=== PATIENT | female | born 1935 | race Caucasian/White ===

== ENCOUNTER → 2016-10-19 | Outpatient (CLI) | payer MEDICARE ==
[~2016-10-19] MED LIST: ALBU0.08 NEB; ALBU6.7H INH; ALEN1TAB48 PO; ASPI81TA81 PO; BUDE0.5S NEB; CALC600T10 PO; CEFT500T3 PO; CHOL5000 PO; CYAN1000P IM; ESTR1.25 PO; IPRA0.02 NEB; LACT PO; LOSA100T PO; NYST1000 SWISH-SWAL; NYST15T TOPICAL; PRED10PA PO; PULM180I INH; THEO200T4 PO; ZINC20OI TOPICAL
[2016-10-19 13:08] LABS: AUTOMATED NEUTROPHIL # 3.7 TH/MM3 (1.8-7.7); BASOPHIL % 0.5 % (0.0-2.0); EOSINOPHIL # 0.1 TH/MM3 (0-0.4); EOSINOPHIL % 2.4 % (0.0-4.0); HEMATOCRIT 37.3 % (35.0-46.0); HEMO FLAGS DIFF FINAL; LYMPH % 10.7 % (9.0-44.0); LYMPHOCYTE # 0.5 TH/MM3 (1.0-4.8); MEAN CELL VOLUME 97.1 FL (80.0-100.0); MEAN CORPUSCULAR HEMOGLOBIN 31.4 PG (27.0-34.0); MEAN CORPUSCULAR HGB CONC 32.3 % (32.0-36.0); MONO % 12.5 % (0.0-8.0); NEUT % 73.9 % (16.0-70.0); PLATELET COUNT 490 TH/MM3 (150-450); RED BLOOD COUNT 3.84 MIL/MM3 (4.00-5.30); RED CELL DISTRIBUTION WIDTH 16.9 % (11.6-17.2)
[2016-10-19 13:25] LABS: BLOOD, URINE NEG (NEG); GLUCOSE,URINE NEG (NEG); KETONE, URINE NEG (NEG); NITRITE,URINE NEG (NEG); SQUAMOUS EPITHELIAL CELL URINE 1 /hpf (0-5); URINE COLOR LIGHT-YELLOW (YELLW/STRAW)
[2016-10-19 13:40] LABS: ANION GAP 9 MEQ/L (5-15); AST (GOT) 19 U/L (15-37); BICARBONATE 26.2 MEQ/L (21.0-32.0); BLOOD UREA NITROGEN 18 MG/DL (7-18); CHLORIDE 109 MEQ/L (98-107); GLUCOSE,FASTING 70 MG/DL (74-99); POTASSIUM 3.7 MEQ/L (3.5-5.1); SODIUM (NA) 144 MEQ/L (136-145)
[2016-10-19 13:53] LABS: ALKALINE PHOSPHATASE 53 U/L (45-117); ALT (GPT) 15 U/L (10-53); GLOMERULAR FILTRATION RATE 45 ML/MIN (>89); LDL CHOLESTEROL 79 MG/DL (0-99); TOTAL BILIRUBIN ADULT 0.4 MG/DL (0.2-1.0)
== END ==
LOC: PLAB 08:53
DX: I10 Essential (primary) hypertension (principal); J45.909 Unspecified asthma, uncomplicated; E78.00 Pure hypercholesterolemia, unspecified
CPT/HCPCS: 36415; 80053; 80061; 81001; 84443; 85025

== ENCOUNTER → 2017-03-13 | Outpatient (CLI) | payer MEDICARE ==
[2017-03-13 14:56] LABS: BICARBONATE 24.9 MEQ/L (21.0-32.0); POTASSIUM 3.9 MEQ/L (3.5-5.1)
[2017-03-15 23:51] LABS: N-TELOPEPTIDE NTX 10 (4-64)
== END ==
LOC: PLAB 09:14
PROVIDERS: ATTEND Internal Medicine Endocrinology, Diabetes & Metabolism
DX: E55.9 Vitamin D deficiency, unspecified (principal); M81.0 Age-related osteoporosis without current pathological fracture; N18.3 Chronic kidney disease, stage 3 (moderate)
CPT/HCPCS: 36415; 80048; 82306; 82523

== ENCOUNTER 2017-04-11 07:46 | Inpatient (IN) | payer MEDICARE ==
[2017-04-11] VITALS (22 sets, daily range): BP systolic 82–175; BP diastolic 3–109; PULSE 85–155; RESP 19–36; TEMP 98.2–100; O2SAT 94–100
[~2017-04-11] VITALS: Ht 157.5 cm; Wt 42.6 kg
[2017-04-11] MEDS ORDERED: SODIUM CHLORIDE 0.9% FLUSH 10 ML FLUSH IVF PRN (08:15)
--- NOTE | 2017-04-11 08:15 | PD ---
HPI Chief Complaint: Respiratory Symptoms Time Seen by Provider: 08:01 Travel History International Travel<30 days: No Contact w/Intl Traveler<30days: No Traveled to known affect area: No History of Present Illness HPI The patient is a 81-year-old female who presents to the emergency department for 24 hours of shortness of breath. The patient does have a history of COPD and is followed by her iridologist, Dr. Mcmanus, as well as her primary physician, Dr. Stoner. The patient states she does have a history of COPD and was started on prednisone several days ago on April 09. The patient is currently taking prednisone 30 mg daily, did not take her dose today. She is also been taking a cephalosporin at home for her chronic bronchitis. The patient has been using nebulizers at home, however, her symptoms have progressed over the last 24 hours. She denies any chest pain. She denies any known history of pulmonary embolism. She denies recent prolonged travel, hospitalizations, or surgeries. The patient states she did have a workup for pulmonary embolism one year ago when she was admitted for COPD exacerbation that was negative. She does take Premarin on a daily basis. Symptoms are moderate, not alleviated with nebulizers and steroids at home. Possibly exacerbated by history of COPD. PFSH Past Medical History Hx Anticoagulant Therapy: Yes (ASA 81 MG) Arthritis: Yes Asthma: Yes Autoimmune Disease: No Blood Disorders: No Anxiety: No Depression: No Heart Rhythm Problems: No Cancer: No Cardiac Catheterization: Yes (01/22/07) Cardiovascular Problems: Yes High Cholesterol: Yes Chemotherapy: No Chest Pain: No Congestive Heart Failure: No COPD: Yes Cerebrovascular Accident: No Coronary Artery Disease: Yes Diabetes: No Diminished Hearing: No Endocrine: Yes Gastrointestinal Disorders: Yes (ACID REFLUX, HX OF STOMACH ULCER) GERD: Yes Glaucoma: No Genitourinary: Yes (PROLAPSE) Headaches: No Hepatitis: No Hiatal Hernia: No Hypertension: Yes Immune Disorder: No Implanted Vascular Access Dvce: Yes Kidney Stones: No Musculoskeletal: Yes Neurologic: No Psychiatric: No Reproductive: Yes (PELVIC FLOOR PROLAPSE ) Respiratory: Yes Migraines: No Myocardial Infarction: No Radiation Therapy: No Renal Failure: No Seizures: No Sickle Cell Disease: No Sleep Apnea: No Thyroid Disease: Yes Ulcer: Yes (STOMACH) ?: Not Menopausal: Yes : 3 Para: 3 Past Surgical History Abdominal Surgery: Yes AICD: No Appendectomy: No Arteriovenous Shunt: No Body Medical Devices: IMPLANTED STENTS X 2 RCA Cardiac Surgery: Yes (STENTS RCA DEC 2006 FROM OCCULUSION 75%) Cholecystectomy: Yes (1982) Coronary Stent: Yes ( - 01/22/07) Ear Surgery: No Endocrine Surgery: No Eye Surgery: Yes ( CATARACTS X 2 O9) Genitourinary Surgery: No Gynecologic Surgery: Yes Hysterectomy: Yes Insulin Pump: No Joint Replacement: No Oral Surgery: Yes (TONSILLECTOMY) Pacemaker: No Thoracic Surgery: No Tonsillectomy: Yes (1979) Other Surgery: Yes (BOWEL OBSTRUCTION-RESECTION) Social History Alcohol Use: No Tobacco Use: Yes (quit 2006) Substance Use: No Allergies-Medications (Allergen,Severity, Reaction): Coded Allergies: acebutolol (Unverified Allergy, Severe, "CAN'T THINK OR SPEAK", 04/11/17) atenolol (Unverified Allergy, Severe, "CAN'T THINK OR SPEAK", 04/11/17) betaxolol (Unverified Allergy, Severe, "CAN'T THINK OR SPEAK", 04/11/17) carvedilol (Unverified Allergy, Severe, "CAN'T THINK OR SPEAK", 04/11/17) clopidogrel (Unverified Allergy, Severe, UPPER GI BLEED, 04/11/17) codeine (Unverified Allergy, Severe, STOMACH UPSET, 04/11/17) ezetimibe (Unverified Allergy, Severe, Diarrhea, 04/11/17) hydrochlorothiazide (Unverified Allergy, Severe, Rash, 04/11/17) hydromorphone (Unverified Allergy, Severe, Nausea/Vomiting, 04/11/17) labetalol (Unverified Allergy, Severe, "CAN'T THINK OR SPEAK", 04/11/17) metoprolol (Unverified Allergy, Severe, "CAN'T THINK OR SPEAK", 04/11/17) morphine (Unverified Allergy, Severe, Rash, 04/11/17) nebivolol (Unverified Allergy, Severe, "CAN'T THINK OR SPEAK", 04/11/17) pindolol (Unverified Allergy, Severe, "CAN'T THINK OR SPEAK", 04/11/17) propranolol (Unverified Allergy, Severe, "CAN'T THINK OR SPEAK", 04/11/17) sotalol (Unverified Allergy, Severe, "CAN'T THINK OR SPEAK", 04/11/17) ticlopidine (Unverified Allergy, Severe, UPPER GI BLEED, 04/11/17) timolol (Unverified Allergy, Severe, "CAN'T THINK OR SPEAK", 04/11/17) amlodipine (Unverified Allergy, Mild, Nausea/Vomiting, 04/11/17) atorvastatin (Unverified Allergy, Mild, Nausea/Vomiting, 04/11/17) pramipexole (Unverified Allergy, Mild, 04/11/17) pravastatin (Unverified Allergy, Mild, Nausea/Vomiting, 04/11/17) simvastatin (Unverified Allergy, Mild, Nausea/Vomiting, 04/11/17) Reported Meds & Prescriptions Reported Meds & Active Scripts Active Nystatin Topical (Nystatin) 100,000 unit/gm Cream 1 Applic TOPICAL Q12HR 14 Days Acidophilus/l-Sporogenes (Lactobacillus Acidophilus) 1 Tab Tab 1 Tab PO Q12HR Nystatin Liq 100,000 unit/ml Susp 5 Ml SWISH-SWAL Q6H 7 Days Zinc Oxide (Zinc Oxide (Topical)) 20 % Oin 1 Applic TOPICAL UNSCH PRN 14 Days Reported Prednisone (21) 5 mg tab Dose Pack (Prednisone) 5 Mg Dspk 5 Mg PO DIRECTED Ceftin (Cefuroxime Axetil) 250 Mg Tab 250 Mg PO BID Theophylline ER 12 HR (Theophylline) 200 Mg Tab 200 Mg PO Q12H Alendronate (Alendronate Sodium) 70 Mg Tab 70 Mg PO Q7D Proventil Hfa 6.7 GM Inh (Albuterol Sulfate) 90 Mcg/Act Aer 2 Puff INH Q4HR PRN Pulmicort Flexhaler (Budesonide Powder Inh) 180 Mcg/Act Inhp 180 Mcg INH Q12HR PRN Albuterol Neb (Albuterol Sulfate) 2.5 Mg/3 Ml Neb 2.5 Mg NEB QID Ipratropium Neb (Ipratropium [place]) 0.5 Mg/2.5 Ml Amp 0.5 Mg NEB BID Budesonide Neb 0.5 Mg/2 Ml Neb 0.5 Mg NEB BID Cyanocobalamin Inj (Cyanocobalamin) 1,000 Mcg/Ml Inj 1,000 Mcg IM MONTHLY Calcium + D3 (Calcium Carbonate-Cholecalciferol) 600-200 Mg-Unit Tab 3 Tab PO DAILY Vitamin D3 (Cholecalciferol) 5,000 Unit Cap 5,000 Units PO 4TIMESPERWEEK Premarin (Estrogens Conjugated) 1.25 Mg Tab 1.25 Mg PO DAILY Losartan (Losartan Potassium) 100 Mg Tab 100 Mg PO DAILY Aspir-81 (Aspirin) 81 Mg Tabdr 81 Mg PO DAILY Review of Systems Except as stated in HPI: all other systems reviewed are Neg General / Constitutional: No: Fever Cardiovascular: Positive: Dyspnea on exertion, No: Chest Pain or Discomfort Respiratory: Positive: Cough, Shortness of Breath, Wheezing Gastrointestinal: No: Nausea, Vomiting Musculoskeletal: No: Weakness, Edema Neurologic: No: Dizziness Physical Exam Narrative GENERAL: Awake, alert, pleasant 81 year-old female appears her stated age and appears in moderate respiratory distress. SKIN: Focused skin assessment warm/dry. HEAD: Atraumatic. Normocephalic. EYES: Pupils equal and round. No scleral icterus. No injection or drainage. ENT: No nasal bleeding or discharge. Mucous membranes pink and moist. NECK: Trachea midline. No JVD. CARDIOVASCULAR: Regular, tachycardic with a heart rate of 140. RESPIRATORY: Tachypnea with a respiratory rate of 24. Patient is using accessory muscles with supraclavicular muscle contraction. Diminished breath sounds throughout with prolonged expiratory phase and a few scattered wheezes. GASTROINTESTINAL: Abdomen soft, non-tender, nondistended. MUSCULOSKELETAL: No obvious deformities. No clubbing. No cyanosis. No edema. Calves are soft bilaterally. NEUROLOGICAL: Awake and alert. No obvious cranial nerve deficits. Motor grossly within normal limits. Normal speech. PSYCHIATRIC: Appropriate mood and affect; insight and judgment normal. Data Data Last Documented VS Vital Signs Date Time Temp Pulse Resp B/P (MAP) Pulse Ox O2 Delivery O2 Flow Rate FiO2 04/11/17 09:40 135 26 169/109 (129) 98 Aerosol Mask 04/11/17 09:22 2.00 04/11/17 08:05 98.4 Orders Orders Complete Blood Count With Diff (04/11/17 08:10) Comprehensive Metabolic Panel (04/11/17 08:10) B-Type Natriuretic Peptide (04/11/17 08:10) D-Dimer (04/11/17 08:10) Magnesium (Mg) (04/11/17 08:10) Ckmb (Isoenzyme) Profile (04/11/17 08:10) Troponin I (04/11/17 08:10) Iv Access Insert/Monitor (04/11/17 08:10) Electrocardiogram (04/11/17 08:10) Ecg Monitoring (04/11/17 08:10) Oximetry (04/11/17 08:10) Oxygen Administration (04/11/17 08:10) Chest, Single Ap (04/11/17 08:10) Sodium Chloride 0.9% Flush (Ns Flush) (04/11/17 08:15) Albuterol-Ipratropium Neb (Duoneb Neb) (04/11/17 08:15) CKMB (04/11/17 08:20) CKMB% (04/11/17 08:20) Potassium Chloride (Kcl) (04/11/17 09:45) Aspirin Chew (Aspirin Chew) (04/11/17 09:45) Nitroglycerin 2% Oint (Nitroglycerin 2% (04/11/17 10:00) Admit Order (Ed Use Only) (04/11/17 10:03) Labs Laboratory Tests Test 04/11/17 08:20 White Blood Count 11.4 TH/MM3 Red Blood Count 4.26 MIL/MM3 Hemoglobin 13.9 GM/DL Hematocrit 41.3 % Mean Corpuscular Volume 97.0 FL Mean Corpuscular Hemoglobin 32.6 PG Mean Corpuscular Hemoglobin Concent 33.6 % Red Cell Distribution Width 14.0 % Platelet Count 347 TH/MM3 Mean Platelet Volume 8.3 FL Neutrophils (%) (Auto) 91.0 % Lymphocytes (%) (Auto) 2.9 % Monocytes (%) (Auto) 6.0 % Eosinophils (%) (Auto) 0.0 % Basophils (%) (Auto) 0.1 % Neutrophils # (Auto) 10.4 TH/MM3 Lymphocytes # (Auto) 0.3 TH/MM3 Monocytes # (Auto) 0.7 TH/MM3 Eosinophils # (Auto) 0.0 TH/MM3 Basophils # (Auto) 0.0 TH/MM3 CBC Comment DIFF FINAL Differential Comment D-Dimer Quantitative (PE/DVT) 0.41 MG/L FEU Blood Urea Nitrogen 18 MG/DL Creatinine 1.01 MG/DL Random Glucose 128 MG/DL Total Protein 5.6 GM/DL Albumin 2.4 GM/DL Calcium Level 6.3 MG/DL Magnesium Level 1.3 MG/DL Alkaline Phosphatase 45 U/L Aspartate Amino Transf (AST/SGOT) 48 U/L Alanine Aminotransferase (ALT/SGPT) 19 U/L Total Bilirubin 0.2 MG/DL Sodium Level 143 MEQ/L Potassium Level 3.0 MEQ/L Chloride Level 114 MEQ/L Carbon Dioxide Level 19.5 MEQ/L Anion Gap 10 MEQ/L Estimat Glomerular Filtration Rate 53 ML/MIN Protein Corrected Calcium 7.0 MG/DL Total Creatine Kinase 316 U/L Creatine Kinase MB 5.5 NG/ML Creatine Kinase MB % 1.7 % Troponin I 0.09 NG/ML B-Type Natriuretic Peptide 89 PG/ML [facility] Medical Decision Making Medical Screen Exam Complete: Yes Emergency Medical Condition: Yes Medical Record Reviewed: Yes Interpretation(s) EKG reveals sinus tachycardia. S1Q3T3, incomplete right bundle branch block. Nonspecific ST changes. QTC 410 ms. Last Impressions Chest X-Ray 04/11/17 0810 Signed Impressions: Service Date/Time: Tuesday, April 11, 2017 08:27 - CONCLUSION: 1. Changes of obstructive pulmonary disease. 2. Platelike airspace disease in the medial right lower lobe likely reflects atelectasis although developing pneumonia or aspiration cannot be excluded in the appropriate clinical setting. Hernan Gillespie MD Laboratory Tests Test 04/11/17 08:20 White Blood Count 11.4 TH/MM3 Red Blood Count 4.26 MIL/MM3 Hemoglobin 13.9 GM/DL Hematocrit 41.3 % Mean Corpuscular Volume 97.0 FL Mean Corpuscular Hemoglobin 32.6 PG Mean Corpuscular Hemoglobin Concent 33.6 % Red Cell Distribution Width 14.0 % Platelet Count 347 TH/MM3 Mean Platelet Volume 8.3 FL Neutrophils (%) (Auto) 91.0 % Lymphocytes (%) (Auto) 2.9 % Monocytes (%) (Auto) 6.0 % Eosinophils (%) (Auto) 0.0 % Basophils (%) (Auto) 0.1 % Neutrophils # (Auto) 10.4 TH/MM3 Lymphocytes # (Auto) 0.3 TH/MM3 Monocytes # (Auto) 0.7 TH/MM3 Eosinophils # (Auto) 0.0 TH/MM3 Basophils # (Auto) 0.0 TH/MM3 CBC Comment DIFF FINAL Differential Comment D-Dimer Quantitative (PE/DVT) 0.41 MG/L FEU Blood Urea Nitrogen 18 MG/DL Creatinine 1.01 MG/DL Random Glucose 128 MG/DL Total Protein 5.6 GM/DL Albumin 2.4 GM/DL Calcium Level 6.3 MG/DL Magnesium Level 1.3 MG/DL Alkaline Phosphatase 45 U/L Aspartate Amino Transf (AST/SGOT) 48 U/L Alanine Aminotransferase (ALT/SGPT) 19 U/L Total Bilirubin 0.2 MG/DL Sodium Level 143 MEQ/L Potassium Level 3.0 MEQ/L Chloride Level 114 MEQ/L Carbon Dioxide Level 19.5 MEQ/L Anion Gap 10 MEQ/L Estimat Glomerular Filtration Rate 53 ML/MIN Protein Corrected Calcium 7.0 MG/DL Total Creatine Kinase 316 U/L Creatine Kinase MB 5.5 NG/ML Creatine Kinase MB % 1.7 % Troponin I 0.09 NG/ML B-Type Natriuretic Peptide 89 PG/ML Differential Diagnosis Differential diagnosis includes COPD exacerbation, bronchitis, pneumonia, pulmonary embolism, congestive heart failure, pleural effusion, cardiomyopathy, ACS. Narrative Course IV was established, labs are drawn and sent, and the patient was placed on cardiac telemetry monitoring and continuous pulse oximetry monitoring. EKG was ordered and interpreted. Chest x-ray was obtained. The patient was administered Solu-Medrol 125 g intravenously and duo nebs 2. D-dimer was sent to lab. The patient's d-dimer 0.41, therefore, no CT pulmonary angiogram indicated. The patient did receive nebulizers, however, her heart rate came into the 140s and her symptoms progressed, therefore, the nebulizers were discontinued. The patient does not want BiPAP, has not tolerated in the past. The patient's CK-MB was elevated at 5.5 and the patient's troponin was elevated at 0.9. Therefore, the patient was administered aspirin and Nitropaste. A call was placed to [facility] to cover for Dr. Stoner, for admission. Physician Communication Physician Communication [facility] were paged for admission. I discussed the patient with Dr. Childers who agrees with admission. Diagnosis Primary Impression: Dyspnea Qualified Codes: R06.02 - Shortness of breath Additional Impression: Elevated troponin Admitting Information Admitting Physician Requests: Admit Condition: Stable Anish Upton MD Apr 11, 2017 08:15
[2017-04-11] MEDS ORDERED: CEFU1TAB18 PO (08:27)
[2017-04-11] MEDS ORDERED: THEO200T11 PO (08:27)
[2017-04-11] MEDS ORDERED: PRED5PAK PO (08:27)
[2017-04-11 08:42] LABS: AUTOMATED NEUTROPHIL # 10.4 TH/MM3 (1.8-7.7); BASOPHIL % 0.1 % (0.0-2.0); HEMATOCRIT 41.3 % (35.0-46.0); HEMO FLAGS DIFF FINAL; LYMPH % 2.9 % (9.0-44.0); LYMPHOCYTE # 0.3 TH/MM3 (1.0-4.8); MEAN CORPUSCULAR HEMOGLOBIN 32.6 PG (27.0-34.0); MEAN CORPUSCULAR HGB CONC 33.6 % (32.0-36.0); PLATELET COUNT 347 TH/MM3 (150-450); RED BLOOD COUNT 4.26 MIL/MM3 (4.00-5.30); WHITE BLOOD COUNT 11.4 TH/MM3 (4.0-11.0)
--- NOTE | 2017-04-11 08:43 | RADRPT ---
EXAM DATE/TIME: 04/11/2017 08:27 [facility] COMPARISON: CT PULMONARY ANGIOGRAM, March 17, 2016, 16:23. CHEST SINGLE AP, March 16, 2016, 3:42. INDICATIONS : Short of breath. MEDICAL HISTORY : Hypertension. Chronic obstructive pulmonary disease. Cardiovascular disease. Asthma SURGICAL HISTORY : Cardiac catheterization. heart stents. ENCOUNTER: Initial ACUITY: 1 day PAIN SCORE: 0/10 LOCATION: Bilateral chest FINDINGS: Lungs are hyperaerated with diffuse interstitial prominence. Platelike airspace disease in the medial right lower lobe. Cardiomediastinal contours are stable. Remainder of the exam is unchanged. CONCLUSION: 1. Changes of obstructive pulmonary disease. 2. Platelike airspace disease in the medial right lower lobe likely reflects atelectasis although dev eloping pneumonia or aspiration cannot be excluded in the appropriate clinical setting. Hernan Gillespie MD on April 11, 2017 at 8:35 Board Certified Radiologist. This report was verified electronically.
[2017-04-11 09:19] LABS: BICARBONATE 19.5 MEQ/L (21.0-32.0); MAGNESIUM 1.3 MG/DL (1.5-2.5); TOTAL BILIRUBIN ADULT 0.2 MG/DL (0.2-1.0)
[2017-04-11] MEDS: RESP: ALBUTEROL 2.5 MG/IPRATROPIUM 0.5 MG NEB (SCH) INH ×2 (09:22→09:23)
[2017-04-11 09:42] LABS: CKMB 5.5 NG/ML (0.5-3.6)
[2017-04-11] MEDS ORDERED: POTASSIUM CHLORIDE 20 MEQ CONTROLLED RELEASE TAB PO ONE (09:45)
[2017-04-11] MEDS ORDERED: ASPIRIN 81 MG CHEW TAB CHEW ONE (09:45)
[2017-04-11] MEDS ORDERED: NITROGLYCERIN 2% OINT 1 GM PACKET TOPICAL ONE (10:00)
[2017-04-11] MEDS ORDERED: NALOXONE HCL 0.4 MG/ML AMP IV PUSH PRN (10:15)
[2017-04-11] MEDS ORDERED: CALCIUM GLUCONATE 10% 1 GM/10 ML VIAL IV PUSH ONE (10:15)
[2017-04-11] MEDS ORDERED: LORazepam 2 MG/ML VIAL IV PUSH ONE (11:30)
[2017-04-11] MEDS ORDERED: SUCCINYLCHOLINE CHLORIDE 200 MG/10 ML VIAL ONE (11:41)
[2017-04-11] MEDS ORDERED: ETOMIDATE 20 MG/10 ML VIAL ONE (11:42)
[2017-04-11] MEDS ORDERED: ETOMIDATE 20 MG/10 ML VIAL IV PUSH ONE (11:45)
[2017-04-11] MEDS ORDERED: SUCCINYLCHOLINE CHLORIDE 100 MG/5 ML SYRINGE IV PUSH ONE (11:45)
[2017-04-11] MEDS: PROPOFOL 1000 MG/100 ML INJ 100 ML IV PRN ×2 (12:14→22:18)
[2017-04-11] MEDS ORDERED: CHLORHEXIDINE GLUCONATE 2 % 1 PACK (2 CLOTHS) TOP PRN (12:15)
[2017-04-11] MEDS ORDERED: SENNOSIDES 8.6 MG TAB PO PRN (12:15)
[2017-04-11] MEDS ORDERED: MAGNESIUM SULFATE INJ 2 GM in SODIUM CHLORIDE 0.9% INJ 96 ML IV PRN (12:15)
[2017-04-11] MEDS ORDERED: POTASSIUM PHOSPHATE MONOBASIC 500 MG TAB PO/TUBE PRN (12:15)
[2017-04-11] MEDS ORDERED: MAGNESIUM OXIDE 400 MG TAB PO PRN (12:15)
[2017-04-11] MEDS ORDERED: BISACODYL 10 MG SUPP RECTAL PRN (12:15)
[2017-04-11] MEDS ORDERED: POTASSIUM PHOSPHATE INJ 30 MMOL in SODIUM CHLOR 0.9% 250 ML INJ 250 ML IV PRN (12:15)
[2017-04-11] MEDS ORDERED: POTASSIUM CHLOR 40 MEQ PREMIX 100 ML IV PRN ×2 (12:15)
[2017-04-11] MEDS ORDERED: POTASSIUM CHLORIDE 25 MEQ EFFERVESCENT TAB PO PRN (12:15)
[2017-04-11] MEDS ORDERED: MAGNESIUM SULFATE INJ 4 GM in SODIUM CHLORIDE 0.9% INJ 92 ML IV PRN (12:15)
[2017-04-11] MEDS ORDERED: LACTULOSE SYRUP 20 GM/30 ML CUP PO PRN (12:15)
[2017-04-11] MEDS ORDERED: POTASSIUM CHLOR 20 MEQ PREMIX 100 ML IV PRN ×2 (12:15)
[2017-04-11] MEDS ORDERED: RESP: ALBUTEROL 2.5 MG/IPRATROPIUM 0.5 MG NEB (PRN) INH (12:15)
[2017-04-11] MEDS ORDERED: POTASSIUM PHOSPHATE MONOBASIC 500 MG TAB PO PRN (12:15)
[2017-04-11] MEDS ORDERED: MISCELLANEOUS NURSING INFORMATION XX SCH (12:15)
[2017-04-11] MEDS ORDERED: MAGNESIUM HYDROXIDE SUSP 30 ML CUP PO PRN (12:15)
[2017-04-11] MEDS ORDERED: SODIUM PHOSPHATE INJ 30 MMOL in SODIUM CHLOR 0.9% 250 ML INJ 240 ML IV PRN (12:15)
[2017-04-11] MEDS ORDERED: CALCIUM GLUCONATE INJ 1 GM in SODIUM CHLORIDE 0.9% INJ 100 ML IV ONE (12:30)
[2017-04-11] MEDS ORDERED: methylPREDNISolone SOD SUCC 125 MG/2 ML VIAL IV PUSH ONE (12:30)
--- NOTE | 2017-04-11 12:36 | RADRPT ---
EXAM DATE/TIME: 04/11/2017 12:05 [facility] COMPARISON: CHEST SINGLE AP, April 11, 2017, 8:27. INDICATIONS : Evaluate ET tube placement. MEDICAL HISTORY : Hypertension. Chronic obstructive pulmonary disease. Cardiovascular disease. Asthma. SURGICAL HISTORY : Cardiac catheterization. heart stents. ENCOUNTER: Initial ACUITY: 1 day PAIN SCORE: Non-responsive. LOCATION: Bilateral chest FINDINGS: The endotracheal tube is in good position 3 cm above the jesus. A nasogastric has its tip below the diaphragm. The heart is stable. Minimal right basilar atelectasis is stable. CONCLUSION: 1. Endotracheal tube in good position 3 cm above the jesus. 2. Stable right basilar atelectasis. Jason Chambers MD on April 11, 2017 at 12:30 Board Certified Radiologist. This report was verified electronically.
[2017-04-11] MEDS ORDERED: HEPARIN SODIUM - SQ 10,000 UNITS/ML VIAL SQ SCH (13:00)
[2017-04-11] MEDS ORDERED: CALCIUM GLUCONATE INJ 2 GM in SODIUM CHLORIDE 0.9% INJ 100 ML IV ONE (13:00)
[2017-04-11] MEDS ORDERED: POTASSIUM CHLOR 20 MEQ PREMIX 100 ML IV SCH (13:00)
[2017-04-11] MEDS: MAGNESIUM SULFATE 1 GM PREMIX 100 ML IV SCH ×2 (13:21→17:20)
[2017-04-11] MEDS ORDERED: GLUCAGON 1 MG/ML VIAL OTHER PRN (13:30)
[2017-04-11] MEDS ORDERED: DEXTROSE 50% IN WATER 50 ML VIAL(D50) IV PUSH PRN (13:30)
--- NOTE | 2017-04-11 13:36 | MB ---
cc: PAVITHRA OJEDA MD DATE OF CONSULTATION 04/11/2017 HISTORY This is a 81 year-old woman who has a long history of COPD who presents to the emergency department after having shortness of breath for 24-hours. 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 These were started, as well as prednisone at 30 mg daily, but she has had progressive shortness of breath. The patient came to the emergency room and was in rather significant and extreme dyspnea and has been intubated. Most of the history comes from her daughter. No chest pain at present. She does have a history of pulmonary emboli a year ago. Since her admission to the hospital, a BMP was done with a value of 89. Initial troponin was 0.09 and D-dimer was 0.41. Electrocardiogram reveals a right bundle-branch block and sinus tachycardia. No cough or sputum production apparently has been present. She has had no palpitations and apparently nebulizers and steroids have not been effective. ALLERGIES She has multiple allergies as noted in the chart. PHYSICAL EXAM She is intubated. Blood pressure is 160/100, pulse is 135. NECK: There is no neck vein distention. LUNGS: Her lungs revealed diminished breath sounds throughout all lung mills. No wheezes or rhonchi are present. CARDIOVASCULAR: Exam reveals a regular rate and rhythm with no significant murmur or gallop present. EXTREMITIES: Reveal no edema. ASSESSMENT The patient likely has COPD with acute exacerbation. PLAN We will await follow up troponin which is likely demand mediated. MD TONJA Sanchez/AYESHA /1:00 PM /1:04 PM
--- NOTE | 2017-04-11 13:53 | MB ---
cc: FLORENTINO GUERRA M.D. DATE OF CONSULTATION 04/11/2017 DATE OF 1935 HISTORY OF PRESENT ILLNESS The patient is a 81-year-old female with a past medical history of COPD, coronary artery disease, hypertension, gastroesophageal reflux disease, peptic ulcer disease who presented to [facility] ED with a one-day history of worsening shortness of breath. 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 Alarcon. There is no history of any associated symptoms of chest pain, orthopnea, PND or edema of lower extremities. On arrival to the ED the patient was hypertensive and tachycardiac with heart rate of one 130s to 150s. Her initial chest x-ray on arrival showed COPD changes, atelectasis in the right lower lobe. The patient was initially tried on BiPap without any improvements in her respiratory status. She was initially admitted to the hospitalist service. However, in the ED the patient was intubated and placed on mechanical ventilation for respiratory failure. Chest x-ray post-intubation showed ET tube above the jesus, right basilar atelectasis. She was given Solu-Medrol 125 mg IV push in the ED along with aspirin, bronchodilator and potassium supplement. There is no history of any prior intubation for her COPD. In addition, no history of any cough or constitutional symptoms. No other. PAST MEDICAL HISTORY 1. COPD. 2. Coronary artery disease. 3. Hypertension. 4. Gastroesophageal reflux disease. 5. Peptic ulcer disease. PAST SURGICAL HISTORY 1. Previous PTCA x2 in the right coronary artery. 2. Previous cholecystectomy. 3. Tonsillectomy. 4. Cataract extraction x2. 5. Previous bowel resection. FAMILY HISTORY Parents with emphysema. SOCIAL HISTORY She has a remote history of tobacco use. Occasional drinker. FAMILY HISTORY Not contributory to current present illness. ALLERGIES Multiple which include - ATENOLOL. HYDROCHLOROTHIAZIDE. LABETALOL. SOTALOL. PRAVASTATIN. SIMVASTATIN. ATORVASTATIN. REPORTED MEDICATIONS 1. Aspirin. 2. Losartan. 3. Ceftin. 4. Alendronate. 5. Tapered dose prednisone. 6. Albuterol nebs. REVIEW OF SYSTEMS As per HPI. The rest of the review of systems limited as the patient is intubated. PHYSICAL EXAMINATION GENERAL: A 81-year-old female intubated for respiratory failure. VITAL SIGNS: Temperature 98.4, pulse of 142, blood pressure 159/96, saturation 94%. HEENT: Atraumatic, normocephalic. Pupils equal and round, reactive to accommodation. Extraocular muscles intact. Conjunctivae pink. Nonicteric sclerae. Oral mucosa within normal. NECK: Supple. No JVD, adenopathy, thyromegaly. Trachea in the midline. Orally intubated. CARDIOVASCULAR EXAMINATION: Tachycardiac. Normal S1-S2. No murmurs, rubs or gallops noted. PULMONARY EXAM: Bilateral equal air entry. Overall diminished. ABDOMEN: Soft, nontender, no distension. Positive bowel sounds. EXTREMITIES: No cyanosis, clubbing or edema. NEURO: Intubated and sedated. LABORATORY DATA Sodium 143, potassium 3, chloride 114, CO2 19.5, BUN 18 creatinine 1.0, glucose 128 corrected calcium 7, magnesium 1.3, AST 48, ALT 19, total bilirubin 0.2. Troponin 0.09, total CK 316, CK-MB 5.5, albumin 2.4. WBC 11.4, hemoglobin 13.9, hematocrit 41, platelet count of 347. RADIOGRAPHIC STUDIES Chest x-ray post-intubation showed ET tube above the jseus, right basilar atelectasis. IMPRESSION 1. Acute respiratory failure requiring intubation. 2. COPD exacerbation. 3. Hypertension. 4. Mild acute kidney injury. 5. Electrolyte imbalance which includes hypokalemia and hypomagnesemia. 6. History of coronary artery disease with previous stent placements. 7. History of gastroesophageal reflux disease. 8. Peptic ulcer disease. RECOMMENDATIONS 1. Continue with Diprivan infusion for sedation. We will add Fentanyl drip if needed for sedation and vent synchrony. 2. Continue vent support and maintain sats above 92%. 3. Bronchodilators in the form of DuoNeb q. 4 plus q. 2 p.r.n. 4. Continue with Solu-Medrol 40 mg IV q. 6. 5. Check ABG post-intubation. 6. Monitor renal function I's and O's and electrolyte replacement per protocol. We will need potassium, calcium and magnesium replacements. Place on IV fluids, NS at 75 ml/hour. 7. Monitor heart rate and blood pressure closely and maintain MAP greater than 65 mmHg. 8. We will continue with aspirin [address] on Cardizem 30 mg q. 6 for rate control. She had an echocardiogram in March 2016 which showed an EF of 60-65%. 10. Keep n.p.o. for now. 11. Place on Pepcid at 20 mg IV q. 12 for GI prophylaxis. 12. Start tube feeds tomorrow if remains intubated. 13. Place on empiric antibiotics in the form of Zosyn for COPD exacerbation and monitor for signs of infections which include fever and WBC. 14. Check sputum culture with gram's stain. 15. Monitor CBC. 16. Place on sliding scale insulin with Accu-Cheks for glycemic control as the patient will be on IV steroids. 17. GI prophylaxis with Pepcid 20 mg q. 12. 18. DVT prophylaxis with SCDs and heparin subcu. Further recommendations will be based on the hospital course. Thank you. MD TEN Marquez/LOLIS /1:08 PM /1:25 PM
[2017-04-11] MEDS: FAMOTIDINE 20 MG/2 ML VIAL IV PUSH SCH ×2 (14:23→21:18)
[2017-04-11] MEDS: PIPERACIL-TAZO 3.375 GM PREMIX 50 ML IV SCH ×2 (14:23→21:17)
[2017-04-11] MEDS: SODIUM CHLOR 0.9% 1000 ML INJ 1,000 ML IV SCH (14:30)
[2017-04-11] MEDS ORDERED: RESP: IPRATROPIUM 0.5 MG/2.5 ML NEB NEB PRN (14:30)
[2017-04-11] MEDS: INSULIN NovoLIN REGULAR SUPPLEMENTAL SCALE SQ SCH ×3 (15:03→22:00)
[2017-04-11] MEDS: RESP: IPRATROPIUM 0.5 MG/2.5 ML NEB NEB SCH ×2 (15:26→21:00)
[2017-04-11] MEDS ORDERED: RESP: ALBUTEROL 2.5 MG/IPRATROPIUM 0.5 MG NEB (SCH) INH (16:00)
[2017-04-11 17:02] LABS: CKMB 12.7 NG/ML (0.5-3.6)
[2017-04-11] MEDS: methylPREDNISolone SOD SUCC 40 MG/1 ML VIAL IV PUSH SCH (17:19)
[2017-04-11] MEDS: DILTIAZEM HCL 30 MG TAB PO SCH ×2 (17:33→20:00)
[2017-04-11] MEDS: AZITHROMYCIN INJ 500 MG in SODIUM CHLOR 0.9% 250 ML INJ 250 ML IV SCH (17:45)
[2017-04-11] MEDS ORDERED: HEPARIN 25,000 UNITS-D5W 250 ML - PREMIX IV PRN (18:15)
[2017-04-11] MEDS ORDERED: HEPARIN SODIUM - IV 10,000 UNITS/10 ML VIAL IV PUSH PRN ×2 (18:15)
--- NOTE | 2017-04-11 18:19 | MB ---
cc: ROCIO WILLS DATE OF CONSULTATION 04/11/2017 REASON FOR CONSULTATION Respiratory failure and COPD. HISTORY OF PRESENT ILLNESS This is a 81-year-old white female who has had a longstanding history of COPD and emphysema and has been on home oxygen and under the care of Dr. Alarcon. The patient recently had an exacerbation of bronchitis, started taking an oral antibiotic last week including prednisone with a tapered dose, but started to have severe shortness of breath earlier today and called her daughter who is a nurse to bring her to the hospital. The patient was then transported to the emergency room. Initially, she was on a nasal cannula but was in quite severe distress and was tried on BiPap briefly with no success and, thus, she had to be intubated, placed on ventilator support. She is presently sedated on propofol and on FIO2 of 50% and her heart rate is noted to be over 140. The patient is somewhat restless, but her chest x-ray only showed evidence of mild atelectasis and hyperinflation. PAST MEDICAL HISTORY 1. History of COPD with emphysema 2. History of gastroesophageal reflux 3. History of hypertension, 4. History of peptic ulcer disease 5. Coronary artery disease PAST SURGICAL HISTORY 1. Tonsillectomy 2. Cholecystectomy 3. History of bilateral cataract extraction 4. Bowel resection. 5. She has had PTCA and stenting of the right coronary artery. HABITS The patient smoked one-pack per day for over 30 years and then quit. Drinks occasional alcohol. FAMILY HISTORY Significant for COPD in her parents. ALLERGIES LABETALOL ATENOLOL PRAVASTATIN HYDROCHLOROTHIAZIDE MEDICATIONS 1. Nebulized albuterol 2. Prednisone 20 mg a day 3. Recently on Ceftin and then Losartan 100 mg a day 4. One aspirin daily. REVIEW OF SYSTEMS The patient is intubated on ventilator support. PHYSICAL EXAMINATION GENERAL: This is an averagely built elderly lady who is intubated and sedated. She is somewhat restless. VITAL SIGNS: Blood pressure 148/90, pulse is 130, respirations 24, temperature 97.6. HEENT: The head normocephalic. Pupils are reactive. Sclerae were clear. Nasal mucosa edematous. Ears no inflammation. NECK: Supple. No lymphadenopathy. There is mild venous distension while laying flat. Trachea midline. No thyromegaly. CHEST: Equal movements with an increased AP diameter with bilateral expiratory wheezes. Prolonged expirations, few crackles at the right base. HEART: Sounds are regular S1, S2 and tachycardic with no murmur. ABDOMEN: Soft, nontender. No organomegaly. Bowel sounds are active. EXTREMITIES: No lesions or edema. Peripheral pulses are diminished. NEUROLOGIC: Reflexes are 1+. Babinski negative. The patient is sedated. SKIN: No lesions were observed. IMPRESSION 1. Hypercapnic respiratory failure. 2. 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 History of hypertension 4. History of coronary artery disease with stenting 5. History of peptic ulcer disease. PLAN The patient has been started on ventilator support. We will keep her sedated with Diprivan and fentanyl drips. She was placed on DuoNeb nebs q.4 h, also Solu-Medrol 40 mg IV q.6 h. Her heart rate will be monitored and controlled and Cardizem was started 30 mg q. six. We will get a culture from the tracheal aspirate. Antibiotics including Zosyn 3.375 grams IV q.6 h and Zithromax 500 mg IV daily. A repeat chest x-ray, blood gas study to be done in the a.m. as well as [facility]. The patient will be placed in the ICU and I will follow the case with you, Dr. Person. Thank you for this consultation. MD RICHELLE Norton/ /5:33 PM /6:06 PM
[2017-04-11] MEDS ORDERED: HEPARIN SODIUM - IV 10,000 UNITS/10 ML VIAL IV ONE (18:30)
--- NOTE | 2017-04-11 18:41 | EKG ---
Date Performed: 04/11/2017 Time Performed: 15:25:13 PTAGE: 81 years EKG: SINUS TACHYCARDIA LEFT ATRIAL ENLARGEMENT LOW QRS VOLTAGE IN EXTREMITY LEADS POSSIBLE RIGHT VENTRICULAR CONDUCTION DELAY POSSIBLE INFERIOR MYOCARDIAL INFARCTION Since previous tracing, no sign ificant change noted ABNORMAL ECG PREVIOUS TRACING : 04/11/2017 08.47 DOCTOR: Hunter Hawkins Interpretating Date/Time 04/11/2017 18:41:14
--- NOTE | 2017-04-11 18:46 | EKG ---
Date Performed: 04/11/2017 Time Performed: 08:47:49 PTAGE: 81 years EKG: SINUS TACHYCARDIA WITH SHORT MD INTERVAL INCOMPLETE RIGHT BUNDLE BRANCH BLOCK NONSPECIFIC S T & T-WAVE ABNORMALITY Since previous tracing, no significant change noted ABNORMAL RHYTHM ECG PREVIOUS TRACING : 03/12/2016 21.50 DOCTOR: Jonas Fitzpatrick Interpretating Date/Time 04/11/2017 18:44:58
[2017-04-11 20:56] LABS: HEMATOCRIT 40.4 % (35.0-46.0); MEAN CELL VOLUME 97.8 FL (80.0-100.0); MEAN CORPUSCULAR HEMOGLOBIN 32.2 PG (27.0-34.0); MEAN CORPUSCULAR HGB CONC 32.9 % (32.0-36.0); PLATELET COUNT 329 TH/MM3 (150-450); RED BLOOD COUNT 4.13 MIL/MM3 (4.00-5.30); RED CELL DISTRIBUTION WIDTH 14.4 % (11.6-17.2); REVIEW FLAG FINAL; WHITE BLOOD COUNT 10.7 TH/MM3 (4.0-11.0)
[2017-04-11] MEDS: BUDESONIDE-FORMOTEROL 160/4.5 MCG INHALER INH SCH (21:00)
[2017-04-11] MEDS ORDERED: FAMOTIDINE 20 MG TAB PO SCH (21:00)
[2017-04-11 21:06] LABS: APTT (PATIENT) 27.9 SEC (24.3-30.1); PROTHROMBIN TIME - PATIENT 10.2 SEC (9.8-11.6)
[2017-04-11 21:13] LABS: POTASSIUM 5.5 MEQ/L (3.5-5.1)
[2017-04-11] MEDS: DOCUSATE SODIUM 50 MG/SENNA 8.6 MG TAB PO SCH (21:17)
[2017-04-11] MEDS: SODIUM CHLORIDE 0.9% FLUSH 10 ML FLUSH IV FLUSH SCH (21:18)
[2017-04-11 21:48] LABS: CKMB 11.9 NG/ML (0.5-3.6)
[2017-04-12] VITALS (18 sets, daily range): BP systolic 84–150; BP diastolic 55–72; PULSE 63–92; RESP 19–25; TEMP 97.4–99.1; O2SAT 97–100
[2017-04-12] MEDS: methylPREDNISolone SOD SUCC 40 MG/1 ML VIAL IV PUSH SCH ×4 (01:11→16:51)
[2017-04-12] MEDS: INSULIN NovoLIN REGULAR SUPPLEMENTAL SCALE SQ SCH ×6 (01:12→22:00)
[2017-04-12] MEDS: DILTIAZEM HCL 30 MG TAB PO SCH ×4 (02:00→20:00)
[2017-04-12] MEDS: fentaNYL DRIP 250 ML IV PRN (03:15)
[2017-04-12] MEDS: RESP: IPRATROPIUM 0.5 MG/2.5 ML NEB NEB SCH ×4 (03:52→20:12)
[2017-04-12 03:53] LABS: AUTOMATED NEUTROPHIL # 9.1 TH/MM3 (1.8-7.7); HEMO FLAGS DIFF FINAL; LYMPH % 4.1 % (9.0-44.0); LYMPHOCYTE # 0.4 TH/MM3 (1.0-4.8); MEAN CORPUSCULAR HEMOGLOBIN 31.6 PG (27.0-34.0); MEAN CORPUSCULAR HGB CONC 32.2 % (32.0-36.0); MONO % 5.5 % (0.0-8.0); NEUT % 90.4 % (16.0-70.0); PLATELET COUNT 294 TH/MM3 (150-450); RED BLOOD COUNT 4.08 MIL/MM3 (4.00-5.30); RED CELL DISTRIBUTION WIDTH 14.2 % (11.6-17.2); WHITE BLOOD COUNT 10.1 TH/MM3 (4.0-11.0)
[2017-04-12] MEDS: CHLORHEXIDINE GLUCONATE 2 % 1 PACK (2 CLOTHS) TOP SCH (04:00)
[2017-04-12 04:05] LABS: APTT (PATIENT) 89.3 SEC (24.3-30.1)
[2017-04-12 04:25] LABS: BICARBONATE 21.8 MEQ/L (21.0-32.0); HDL CHOLESTEROL 108.3 MG/DL (40.0-60.0); INDIRECT BILIRUBIN 0.2 MG/DL (0.0-0.8); MAGNESIUM 2.7 MG/DL (1.5-2.5); POTASSIUM 6.3 MEQ/L (3.5-5.1); TOTAL BILIRUBIN ADULT 0.3 MG/DL (0.2-1.0)
[2017-04-12 05:39] LABS: BLOOD GAS BASE EXCESS -5.3 mmol/L (-2-2); BLOOD GAS CARBOXYHEMOGLOBIN 0.2 % (0-4); BLOOD GAS HCO3 21 mmol/L (22-26); BLOOD GAS METHEMOGLOBIN 1.2 % (0-2); BLOOD GAS O2 HGB SATURATION 97 % (90-100); BLOOD GAS OXYGEN CONTENT 18.2 Vol % (12.0-20.0); BLOOD GAS PCO2 49 mmHg (38-42); BLOOD GAS PO2 181 mmHg (61-120); TEMP CORR TO 98.6
[2017-04-12 05:40] LABS: CRITICAL VALUE YES; OXYGEN DEVICE VENTILATOR
[2017-04-12 05:41] LABS: DRAW SITE RT RADIAL; FIO2 40 %; NUMBER OF ARTERIAL PUNCTURES 1; STAT NO; ULNAR PULSE PRESENT; VENT SETTINGS PRVC18/450/1.0/+5
[2017-04-12] MEDS: PIPERACIL-TAZO 3.375 GM PREMIX 50 ML IV SCH ×2 (05:42→13:40)
--- NOTE | 2017-04-12 07:44 | HHI.CCPN ---
Subjective Remarks/Hospital Course The patient is a 81-year-old female with a past medical history of COPD, coronary artery disease, hypertension, gastroesophageal reflux disease, peptic ulcer disease who presented to [facility] ED with a one-day history of worsening shortness of breath. She denies any use of home oxygen and was placed on Ceftin and tapered dose of prednisone since last by her outpatient branch services manager, Dr. Alarcon. There is no history of any associated symptoms of chest pain, orthopnea, PND or edema of lower extremities. On arrival to the ED the patient was hypertensive and tachycardiac with heart rate of one 130s to 150s. Her initial chest x-ray on arrival showed COPD changes, atelectasis in the right lower lobe. The patient was initially tried on BiPap without any improvements in her respiratory status. She was initially admitted to the hospitalist service. However, in the ED the patient was intubated and placed on mechanical ventilation for respiratory failure. Chest x-ray post- intubation showed ET tube above the jesus, right basilar atelectasis. She was given Solu-Medrol 125 mg IV push in the ED along with aspirin, bronchodilator and potassium supplement. There is no history of any prior intubation for her COPD. In addition, no history of any cough or constitutional symptoms. 04/12 Patient remains sedated with Diprivan, Fentanyl and intubated. Started on Heparin drip last night for elevated trop. Renal function worse with Cr: 1.58 from 1.01 and K 6.3 Objective Vital Signs Date Time Temp Pulse Resp B/P (MAP) Pulse Ox O2 Delivery O2 Flow Rate FiO2 04/12/17 06:00 71 04/12/17 05:03 98 40 04/12/17 04:00 98.4 23 150/72 (98) 04/11/17 16:45 Ventilator 04/11/17 10:40 2.00 Intake and Output 04/12/17 04/12/17 04/13/17 08:00 16:00 00:00 Intake Total 844 ml Output Total 200 ml Balance 644 ml Result Diagram: 04/12/17 0320 04/12/17 0320 Other Results Laboratory Tests Test 04/11/17 08:20 04/11/17 15:18 04/11/17 19:45 04/11/17 21:00 White Blood Count 11.4 TH/MM3 10.7 TH/MM3 Red Blood Count 4.26 MIL/MM3 4.13 MIL/MM3 Hemoglobin 13.9 GM/DL 13.3 GM/DL Hematocrit 41.3 % 40.4 % Mean Corpuscular Volume 97.0 FL 97.8 FL Mean Corpuscular Hemoglobin 32.6 PG 32.2 PG Mean Corpuscular Hemoglobin Concent 33.6 % 32.9 % Red Cell Distribution Width 14.0 % 14.4 % Platelet Count 347 TH/MM3 329 TH/MM3 Mean Platelet Volume 8.3 FL 8.5 FL Neutrophils (%) (Auto) 91.0 % Lymphocytes (%) (Auto) 2.9 % Monocytes (%) (Auto) 6.0 % Eosinophils (%) (Auto) 0.0 % Basophils (%) (Auto) 0.1 % Neutrophils # (Auto) 10.4 TH/MM3 Lymphocytes # (Auto) 0.3 TH/MM3 Monocytes # (Auto) 0.7 TH/MM3 Eosinophils # (Auto) 0.0 TH/MM3 Basophils # (Auto) 0.0 TH/MM3 CBC Comment DIFF FINAL Differential Comment D-Dimer Quantitative (PE/DVT) 0.41 MG/L FEU Blood Urea Nitrogen 18 MG/DL Creatinine 1.01 MG/DL Random Glucose 128 MG/DL Total Protein 5.6 GM/DL Albumin 2.4 GM/DL Calcium Level 6.3 MG/DL Magnesium Level 1.3 MG/DL 3.0 MG/DL Alkaline Phosphatase 45 U/L Aspartate Amino Transf (AST/SGOT) 48 U/L Alanine Aminotransferase (ALT/SGPT) 19 U/L Total Bilirubin 0.2 MG/DL Sodium Level 143 MEQ/L Potassium Level 3.0 MEQ/L 5.5 MEQ/L Chloride Level 114 MEQ/L Carbon Dioxide Level 19.5 MEQ/L Anion Gap 10 MEQ/L Estimat Glomerular Filtration Rate 53 ML/MIN Protein Corrected Calcium 7.0 MG/DL Total Creatine Kinase 316 U/L 431 U/L 345 U/L Creatine Kinase MB 5.5 NG/ML 12.7 NG/ML 11.9 NG/ML Creatine Kinase MB % 1.7 % 2.9 % 3.4 % Troponin I 0.09 NG/ML 2.17 NG/ML 3.13 NG/ML B-Type Natriuretic Peptide 89 PG/ML Prothrombin Time 10.2 SEC Prothromb Time International Ratio 1.0 RATIO Activated Partial Thromboplast Time 27.9 SEC Phosphorus Level 2.6 MG/DL Nasal Screen MRSA (PCR) MRSA DETECTED Test 04/12/17 03:20 04/12/17 05:30 White Blood Count 10.1 TH/MM3 Red Blood Count 4.08 MIL/MM3 Hemoglobin 12.9 GM/DL Hematocrit 40.0 % Mean Corpuscular Volume 98.0 FL Mean Corpuscular Hemoglobin 31.6 PG Mean Corpuscular Hemoglobin Concent 32.2 % Red Cell Distribution Width 14.2 % Platelet Count 294 TH/MM3 Mean Platelet Volume 8.6 FL Neutrophils (%) (Auto) 90.4 % Lymphocytes (%) (Auto) 4.1 % Monocytes (%) (Auto) 5.5 % Eosinophils (%) (Auto) 0.0 % Basophils (%) (Auto) 0.0 % Neutrophils # (Auto) 9.1 TH/MM3 Lymphocytes # (Auto) 0.4 TH/MM3 Monocytes # (Auto) 0.5 TH/MM3 Eosinophils # (Auto) 0.0 TH/MM3 Basophils # (Auto) 0.0 TH/MM3 CBC Comment DIFF FINAL Differential Comment Activated Partial Thromboplast Time 89.3 SEC Blood Urea Nitrogen 27 MG/DL Creatinine 1.58 MG/DL Random Glucose 127 MG/DL Total Protein 6.6 GM/DL Albumin 2.8 GM/DL Calcium Level 8.3 MG/DL Phosphorus Level 2.7 MG/DL Magnesium Level 2.7 MG/DL Alkaline Phosphatase 65 U/L Aspartate Amino Transf (AST/SGOT) 53 U/L Alanine Aminotransferase (ALT/SGPT) 27 U/L Total Bilirubin 0.3 MG/DL Direct Bilirubin 0.1 MG/DL Sodium Level 140 MEQ/L Potassium Level 6.3 MEQ/L Chloride Level 111 MEQ/L Carbon Dioxide Level 21.8 MEQ/L Anion Gap 7 MEQ/L Estimat Glomerular Filtration Rate 32 ML/MIN Indirect Bilirubin 0.2 MG/DL Triglycerides Level 151 MG/DL Cholesterol Level 154 MG/DL LDL Cholesterol 16 MG/DL HDL Cholesterol 108.3 MG/DL Cholesterol/HDL Ratio 1.42 RATIO Blood Gas Puncture Site RT RADIAL Blood Gas Patient Temperature 98.6 Blood Gas HCO3 21 mmol/L Blood Gas Base Excess -5.3 mmol/L Blood Gas Oxygen Saturation 97 % Arterial Blood pH 7.25 Arterial Blood Partial Pressure CO2 49 mmHg Arterial Blood Partial Pressure O2 181 mmHg Arterial Blood Oxygen Content 18.2 Vol % Arterial Blood Carboxyhemoglobin 0.2 % Arterial Blood Methemoglobin 1.2 % Blood Gas Hemoglobin 13.0 G/DL Oxygen Delivery Device VENTILATOR Blood Gas Ventilator Setting PRVC18/450/1.0/+5 Blood Gas Inspired Oxygen 40 % Imaging Last Impressions Chest X-Ray 04/11/17 0810 Signed Impressions: Service Date/Time: Tuesday, April 11, 2017 08:27 - CONCLUSION: 1. Changes of obstructive pulmonary disease. 2. Platelike airspace disease in the medial right lower lobe likely reflects atelectasis although developing pneumonia or aspiration cannot be excluded in the appropriate clinical setting. Hernan Gillespie MD Objective Remarks GENERAL: Patient is 81 yo intubated and sedated SKIN: Warm and dry. HEAD: Normocephalic. EYES: No scleral icterus. No injection or drainage. NECK: Supple, trachea midline. No JVD or lymphadenopathy. CARDIOVASCULAR: Regular rate and rhythm without murmurs, gallops, or rubs. RESPIRATORY: Breath sounds equal bilaterally. Diminished GASTROINTESTINAL: Abdomen soft, non-tender, nondistended. MUSCULOSKELETAL: No cyanosis, or edema. Neuro: Sedated A/P Assessment and Plan 1. VDRF 2. COPD exacerbation. 3. Hypertension. 4. LIO. 5.NSTEMI 6. History CAD with previous stent placements. 7. GERD 8. Peptic ulcer disease. Plan Neuro: On Diprivan/ Fentanyl infusion for sedation and vent synchrony. Daily sedation vacation Pulm: Continue vent support and maintain sats >2%. Bronchodilators, Solu-Medrol 40 mg IV q. 6. ICU vent bundle. Increase TV 500 CV: Monitor HR and BP and maintain MAP>65 mmHg. Continue Aspirin 81 mg daily, Cardizem 30 mg q. Echo from March 2016 showed an EF of 60-65%. Monitor trop, continue with Heparin drip. Cards is following- Dr. Ontiveros. For echo today : Monitor renal function I's and O's and electrolyte replacement per protocol. avoid nephrotoxins Renal function worse today with Cr: 1.58 from 1.01, K 6.3 Will treat hyperkalemia with IV insulin 6uits, D50, Kayexalate and Iesha gluconate. Repeat K level in 2hrs Increase NS 100ml/hr. GI: On Pepcid 20 mg IV q. 12 for GI prophylaxis. Start tube feeds-Glucerna 1.5 with goal rate 45ml/hr ID: Continue with abx( Zosyn, Azithromycin) for COPD exacerbation and monitor for signs of infections(fever and WBC). Follow up on sputum culture Heme: Monitor CBC, coags- on hpearin drip Endo: SSI with Accu-Cheks for glycemic control GI prophylaxis with Pepcid 20 mg q. 12. DVT prophylaxis with SCDs and heparin subcu. Level 3 Yeni Person MD Apr 12, 2017 07:44
[2017-04-12] MEDS ORDERED: INSULIN HUMAN REGULAR 1,000 UNITS/10 ML VIAL IV PUSH ONE (07:45)
[2017-04-12] MEDS ORDERED: SODIUM POLYSTYRENE SULFONATE SUSP 15 GM/60 ML CUP PO ONE (07:45)
[2017-04-12] MEDS ORDERED: DEXTROSE 50% IN WATER 50 ML SYRINGE IV PUSH ONE (07:45)
[2017-04-12] MEDS: ASPIRIN 81 MG CHEW TAB CHEW SCH (07:52)
[2017-04-12] MEDS: FAMOTIDINE 20 MG/2 ML VIAL IV PUSH SCH ×2 (07:52→21:53)
[2017-04-12] MEDS: DOCUSATE SODIUM 50 MG/SENNA 8.6 MG TAB PO SCH ×2 (07:52→21:53)
[2017-04-12] MEDS: SODIUM CHLORIDE 0.9% FLUSH 10 ML FLUSH IV FLUSH SCH ×2 (07:53→21:54)
--- NOTE | 2017-04-12 08:27 | PD.CARD.PN ---
Subjective Subjective Remarks Sedated on vent. Objective Medications Current Medications Medications (Trade) Dose Ordered Sig/Michael Route Start Time Stop Time Status Last Admin (NS Flush) 2 ml UNSCH PRN IV FLUSH 04/11/17 10:15 (NS Flush) 2 ml BID IV FLUSH 04/11/17 21:00 04/12/17 07:53 (Narcan Inj) 0.4 mg UNSCH PRN IV PUSH 04/11/17 10:15 (Atrovent Neb) 0.5 mg Q6HR NEB NEB 04/11/17 16:00 04/12/17 03:52 (Atrovent Neb) 0.5 mg Q2HR NEB PRN NEB 04/11/17 14:30 (SoluMEDROL INJ) 40 mg Q6H IV PUSH 04/11/17 18:30 04/12/17 05:43 Propofol 100 ml @ 1.395 mls/ hr TITRATE PRN IV 04/11/17 12:00 04/11/17 22:18 (Pepcid Inj) 20 mg Q12HR IV PUSH 04/11/17 13:30 04/12/17 07:52 (Heparin Inj) 5,000 units Q12H SQ 04/11/17 13:00 Future Hold 04/11/17 14:22 Miscellaneous Information 1 Q361D XX 04/11/17 12:15 (Chlorhexidine 2% Cloth) 3 pack Taper DAILY@04 TOP 04/12/17 04:00 04/08/18 03:59 04/12/17 04:00 (Chlorhexidine 2% Cloth) 3 pack UNSCH PRN TOP 04/11/17 12:15 (Anai-Colace) 1 tab BID PO 04/11/17 21:00 04/12/17 07:52 (Milk Of Magnesia Liq) 30 ml Q12H PRN PO 04/11/17 12:15 (Senokot) 17.2 mg Q12H PRN PO 04/11/17 12:15 (Dulcolax Supp) 10 mg DAILY PRN RECTAL 04/11/17 12:15 (Lactulose Liq) 30 ml DAILY PRN PO 04/11/17 12:15 Potassium Chloride 100 ml @ 50 mls/hr Q2H PRN IV 04/11/17 12:15 Potassium Chloride 100 ml @ 50 mls/hr Q2H PRN IV 04/11/17 12:15 (K-Lyte Cl Eff) 50 meq UNSCH PRN PO 04/11/17 12:15 Potassium Chloride 100 ml @ 25 mls/hr UNSCH PRN IV 04/11/17 12:15 Potassium Chloride 100 ml @ 50 mls/hr Q2H PRN IV 04/11/17 12:15 Magnesium Sulfate 4 gm/Sodium Chloride 100 ml @ 50 mls/hr UNSCH PRN IV 04/11/17 12:15 (Mag-Ox) 800 mg UNSCH PRN PO 04/11/17 12:15 Magnesium Sulfate 2 gm/Sodium Chloride 100 ml @ 50 mls/hr UNSCH PRN IV 04/11/17 12:15 (K-Phos) 2,000 mg Q4H PRN PO 04/11/17 12:15 Sodium Phosphate 30 mmol/Sodium Chloride 250 ml @ 42 mls/hr UNSCH PRN IV 04/11/17 12:15 (K-Phos) 2,000 mg UNSCH PRN PO/TUBE 04/11/17 12:15 Potassium Phosphate 30 mmol/ Sodium Chloride 260 ml @ 42 mls/hr UNSCH PRN IV 04/11/17 12:15 Piperacillin Sod/ Tazobactam Sod 50 ml @ 100 mls/hr Q8H IV 04/11/17 14:00 04/12/17 05:42 (Aspirin Chew) 81 mg DAILY CHEW 04/12/17 09:00 04/12/17 07:52 Fentanyl Citrate 250 ml @ 5 mls/hr TITRATE PRN IV 04/11/17 14:00 04/12/17 03:15 (Cardizem) 30 mg Q6H PO 04/11/17 14:00 04/11/17 17:33 Sodium Chloride 1,000 ml @ 100 mls/hr Q10H IV 04/11/17 14:30 04/11/17 14:30 (D50w (Vial) Inj) 50 ml UNSCH PRN IV PUSH 04/11/17 13:30 (Glucagon Inj) 1 mg UNSCH PRN OTHER 04/11/17 13:30 (NovoLIN R SUPPLEMENTAL SCALE) 1 Q4H SQ 04/11/17 14:00 04/11/17 15:03 (Symbicort 160-4.5 Mcg Inh) 2 puff Q12HR INH 04/11/17 21:00 Azithromycin 500 mg/Sodium Chloride 250 ml @ 250 mls/hr Q24H IV 04/11/17 17:45 04/11/17 17:45 Heparin Sodium/ Dextrose 250 ml @ 6 mls/hr TITRATE PRN IV 04/11/17 18:15 04/11/17 21:37 (Heparin Inj) 5,000 units UNSCH PRN IV PUSH 04/11/17 18:15 (Heparin Inj) 2,500 units UNSCH PRN IV PUSH 04/11/17 18:15 (Kayexalate Liq) 30 gm ONCE ONCE PO 04/12/17 07:45 04/12/17 07:46 UNV (NovoLIN R INJ) 6 units ONCE ONCE IV PUSH 04/12/17 07:45 04/12/17 07:46 UNV (D50w (Syr) Inj) 50 ml ONCE ONCE IV PUSH 04/12/17 07:45 04/12/17 07:46 UNV Calcium Gluconate 1 gm/Sodium Chloride 110 ml @ 110 mls/hr ONCE ONCE IV 04/12/17 07:45 04/12/17 08:44 UNV Vital Signs / I&O Vital Signs Date Time Temp Pulse Resp B/P (MAP) Pulse Ox O2 Delivery O2 Flow Rate FiO2 04/12/17 06:00 71 04/12/17 05:03 98 40 04/12/17 04:00 50 04/12/17 04:00 89 04/12/17 04:00 98.4 89 23 150/72 (98) 100 04/12/17 02:00 79 04/12/17 01:10 100 50 04/12/17 00:00 98.1 79 19 84/55 (65) 100 04/12/17 00:00 50 04/12/17 00:00 79 04/11/17 22:45 100 50 04/11/17 22:00 96 04/11/17 20:04 99 50 04/11/17 20:00 85 04/11/17 20:00 98.2 86 19 82/54 (63) 99 04/11/17 20:00 50 04/11/17 18:00 100 04/11/17 17:39 100.0 105 20 123/3 (43) 100 04/11/17 17:08 100 50 04/11/17 16:45 116 22 125/87 (100) 100 Ventilator 60 04/11/17 16:45 99 04/11/17 15:26 100 50 04/11/17 14:24 115 22 132/80 (97) 99 Ventilator 50 04/11/17 13:22 126 23 135/82 (99) 99 Ventilator 50 04/11/17 12:22 146 31 175/72 (106) 99 Ventilator 100 04/11/17 11:50 100 100 04/11/17 11:48 155 20 161/103 (122) 99 Ventilator 04/11/17 11:47 45 04/11/17 11:25 97 BiPAP 35 04/11/17 11:20 98 35 04/11/17 10:40 150 32 158/95 (116) 96 Nasal Cannula 2.00 04/11/17 09:40 135 26 169/109 (129) 98 Aerosol Mask 04/11/17 09:22 97 Nasal Cannula 2.00 04/11/17 08:33 127 22 153/96 (115) 97 Nasal Cannula 3.00 I/O 04/11/17 04/11/17 04/11/17 04/12/17 04/12/17 04/12/17 07:00 15:00 23:00 07:00 15:00 23:00 Intake Total 100 ml 820 ml 844 ml Output Total 200 ml 200 ml Balance 100 ml 620 ml 644 ml Intake IV Total 100 ml 820 ml 844 ml Output Urine Total 200 ml 200 ml Physical Exam decreased breath sounds Laboratory Laboratory Tests Test 04/11/17 15:18 04/11/17 19:45 04/11/17 21:00 04/12/17 03:20 Total Creatine Kinase 431 U/L 345 U/L Creatine Kinase MB 12.7 NG/ML 11.9 NG/ML Creatine Kinase MB % 2.9 % 3.4 % Troponin I 2.17 NG/ML 3.13 NG/ML White Blood Count 10.7 TH/MM3 10.1 TH/MM3 Red Blood Count 4.13 MIL/MM3 4.08 MIL/MM3 Hemoglobin 13.3 GM/DL 12.9 GM/DL Hematocrit 40.4 % 40.0 % Mean Corpuscular Volume 97.8 FL 98.0 FL Mean Corpuscular Hemoglobin 32.2 PG 31.6 PG Mean Corpuscular Hemoglobin Concent 32.9 % 32.2 % Red Cell Distribution Width 14.4 % 14.2 % Platelet Count 329 TH/MM3 294 TH/MM3 Mean Platelet Volume 8.5 FL 8.6 FL Prothrombin Time 10.2 SEC Prothromb Time International Ratio 1.0 RATIO Activated Partial Thromboplast Time 27.9 SEC 89.3 SEC Potassium Level 5.5 MEQ/L 6.3 MEQ/L Phosphorus Level 2.6 MG/DL 2.7 MG/DL Magnesium Level 3.0 MG/DL 2.7 MG/DL Nasal Screen MRSA (PCR) MRSA DETECTED Neutrophils (%) (Auto) 90.4 % Lymphocytes (%) (Auto) 4.1 % Monocytes (%) (Auto) 5.5 % Eosinophils (%) (Auto) 0.0 % Basophils (%) (Auto) 0.0 % Neutrophils # (Auto) 9.1 TH/MM3 Lymphocytes # (Auto) 0.4 TH/MM3 Monocytes # (Auto) 0.5 TH/MM3 Eosinophils # (Auto) 0.0 TH/MM3 Basophils # (Auto) 0.0 TH/MM3 CBC Comment DIFF FINAL Differential Comment Blood Urea Nitrogen 27 MG/DL Creatinine 1.58 MG/DL Random Glucose 127 MG/DL Total Protein 6.6 GM/DL Albumin 2.8 GM/DL Calcium Level 8.3 MG/DL Alkaline Phosphatase 65 U/L Aspartate Amino Transf (AST/SGOT) 53 U/L Alanine Aminotransferase (ALT/SGPT) 27 U/L Total Bilirubin 0.3 MG/DL Direct Bilirubin 0.1 MG/DL Sodium Level 140 MEQ/L Chloride Level 111 MEQ/L Carbon Dioxide Level 21.8 MEQ/L Anion Gap 7 MEQ/L Estimat Glomerular Filtration Rate 32 ML/MIN Indirect Bilirubin 0.2 MG/DL Triglycerides Level 151 MG/DL Cholesterol Level 154 MG/DL LDL Cholesterol 16 MG/DL HDL Cholesterol 108.3 MG/DL Cholesterol/HDL Ratio 1.42 RATIO Test 04/12/17 05:30 Blood Gas Puncture Site RT RADIAL Blood Gas Patient Temperature 98.6 Blood Gas HCO3 21 mmol/L Blood Gas Base Excess -5.3 mmol/L Blood Gas Oxygen Saturation 97 % Arterial Blood pH 7.25 Arterial Blood Partial Pressure CO2 49 mmHg Arterial Blood Partial Pressure O2 181 mmHg Arterial Blood Oxygen Content 18.2 Vol % Arterial Blood Carboxyhemoglobin 0.2 % Arterial Blood Methemoglobin 1.2 % Blood Gas Hemoglobin 13.0 G/DL Oxygen Delivery Device VENTILATOR Blood Gas Ventilator Setting PRVC18/450/1.0/+5 Blood Gas Inspired Oxygen 40 % Assessment and Plan Assessment and Plan Troponin elevation likely demand mediated. ECG unchanged. Continue supportive care Gregory Ontiveros MD Apr 12, 2017 08:27
[2017-04-12] MEDS: BUDESONIDE-FORMOTEROL 160/4.5 MCG INHALER INH SCH ×2 (09:00→21:00)
[2017-04-12] MEDS ORDERED: CALCIUM GLUCONATE INJ 1 GM in SODIUM CHLORIDE 0.9% INJ 100 ML IV ONE (09:00)
[2017-04-12] MEDS: SODIUM CHLOR 0.9% 1000 ML INJ 1,000 ML IV SCH (10:36)
[2017-04-12 13:49] LABS: APTT (PATIENT) 42.7 SEC (24.3-30.1)
[2017-04-12 15:06] LABS: BLOOD GAS BASE EXCESS -4.5 mmol/L (-2-2); BLOOD GAS CARBOXYHEMOGLOBIN 0.3 % (0-4); BLOOD GAS HCO3 22 mmol/L (22-26); BLOOD GAS METHEMOGLOBIN 1.1 % (0-2); BLOOD GAS O2 HGB SATURATION 97 % (90-100); BLOOD GAS OXYGEN CONTENT 16.7 Vol % (12.0-20.0); BLOOD GAS PCO2 52 mmHg (38-42); BLOOD GAS PO2 130 mmHg (61-120); BLOOD GAS TOTAL HGB 12.1 G/DL (12.0-16.0); CRITICAL VALUE YES; OXYGEN DEVICE VENTILATOR; TEMP CORR TO 98.6
[2017-04-12 15:07] LABS: DRAW SITE RT RADIAL; FIO2 35 %; NUMBER OF ARTERIAL PUNCTURES 1; STAT NO; ULNAR PULSE PRESENT; VENT SETTINGS PRVC12/450/+5PEEP
[2017-04-12] MEDS: PROPOFOL 1000 MG/100 ML INJ 100 ML IV PRN (15:12)
--- NOTE | 2017-04-12 15:45 | EKG ---
Date Performed: 04/11/2017 Time Performed: 19:59:53 PTAGE: 81 years EKG: Sinus rhythm RIGHT ATRIAL ENLARGEMENT LOW QRS VOLTAGE IN EXTREMITY LEADS INCOMPLETE RIGHT BUNDLE BRANCH BLOCK NON SPECIFIC ST & T-WAVE ABNORMALITY ABNORMAL ECG PREVIOUS TRACING : 04/11/2017 15.25 DOCTOR: Hunter Hawkins Interpretating Date/Time 04/12/2017 15:44:20
--- NOTE | 2017-04-12 15:46 | ECHRPT ---
Indication: + TROPONIN CONCLUSIONS Normal left ventricular size. Wall thickness is normal. The left ventricular systolic function is decreased to mild to moderate degree with an estimated eje ction fraction in the range of 45-50%. Distal anteroseptal and apical hypokinesis. Trace mitral valve regurgitation. BP: 150 / 72 HR: Rhythm: Sinus MEASUREMENTS (Male / Female) Normal Values Technical Quality:Fair 2D ECHO LV Diastolic Diameter PLAX 4.6 cm 4.2 - 5.9 / 3.9 - 5.3 cm LV Systolic Diameter PLAX 3.6 cm IVS Diastolic Thickness 0.7 cm 0.6 - 1.0 / 0.6 - 0.9 cm LVPW Diastolic Thickness 0.7 cm 0.6 - 1.0 / 0.6 - 0.9 cm LV Relative Wall Thickness 0.3 LVOT Diameter 1.8 cm Aortic Root Diameter 3.0 cm M-MODE AV Cusp Separation MM 1.8 cm DOPPLER AV Peak Velocity 109.0 cm/s AV Peak Gradient 4.8 mmHg AV Mean Gradient 2.0 mmHg AV Velocity Time Integral 19.9 cm LVOT Peak Velocity 72.9 cm/s LVOT Peak Gradient 2.1 mmHg LVOT Velocity Time Integral 13.1 cm AV Area Cont Eq vti 1.7 cm AV Area Cont Eq pk 1.7 cm Mitral E Point Velocity 73.5 cm/s Mitral A Point Velocity 94.8 cm/s Mitral E to A Ratio 0.8 LV E' Lateral Velocity 4.5 cm/s Mitral E to LV E' Lateral Ratio 16.4 LV E' Septal Velocity 4.3 cm/s Mitral E to LV E' Septal Ratio 17.1 TR Peak Velocity 194.0 cm/s TR Peak Gradient 15.1 mmHg Right Atrial Pressure 10.0 mmHg Pulmonary Artery Systolic Pressu 25.1 mmHg Right Ventricular Systolic Press 25.1 mmHg PV Peak Velocity 72.9 cm/s PV Peak Gradient 2.1 mmHg FINDINGS LEFT VENTRICLE Normal left ventricular size. Wall thickness is normal. Mild to mod LV dysfx, EF 40-45%, distal and apical hypo. There is distinct regional wall motion abnormalities. RIGHT VENTRICLE Normal right ventricular size and systolic function. LEFT ATRIUM The left atrial size is normal. RIGHT ATRIUM The right atrial size is normal. ATRIAL SEPTUM Normal atrial septal thickness without atrial level shunting by limited color doppler interrogation. AORTA The aortic root and proximal ascending aorta are normal in size on limited imaging. MITRAL VALVE Trace mitral valve regurgitation. AORTIC VALVE Trileaflet aortic valve. No aortic valve stenosis or regurgitation. TRICUSPID VALVE Structurally normal tricuspid valve. No tricuspid valve stenosis or regurgitation. PULMONARY VALVE No pulmonary valve regurgitation or stenosis. VESSELS The inferior vena cava is normal in size. PERICARDIUM No pericardial effusion. Giselle Hassan MD, FACC (Electronically Signed) Final Date:12 April 2017 15:45
[2017-04-12] MEDS: AZITHROMYCIN INJ 500 MG in SODIUM CHLOR 0.9% 250 ML INJ 250 ML IV SCH (16:51)
[2017-04-12 17:09] LABS: BLOOD GAS BASE EXCESS -5.9 mmol/L (-2-2); BLOOD GAS CARBOXYHEMOGLOBIN 0.4 % (0-4); BLOOD GAS HCO3 20 mmol/L (22-26); BLOOD GAS METHEMOGLOBIN 1.2 % (0-2); BLOOD GAS O2 HGB SATURATION 96 % (90-100); BLOOD GAS OXYGEN CONTENT 17.9 Vol % (12.0-20.0); BLOOD GAS PCO2 48 mmHg (38-42); BLOOD GAS PO2 115 mmHg (61-120); BLOOD GAS TOTAL HGB 13.2 G/DL (12.0-16.0); CRITICAL VALUE YES; OXYGEN DEVICE VENTILATOR; TEMP CORR TO 98.6
[2017-04-12 17:10] LABS: DRAW SITE RT RADIAL; FIO2 30 %; NUMBER OF ARTERIAL PUNCTURES 1; STAT NO; ULNAR PULSE PRESENT; VENT SETTINGS PRVC18/500/+5PEEP
--- NOTE | 2017-04-12 17:43 | HHI.PR ---
Subjective Remarks Sedated and on FIO2 40 % on Vent support. Output was good.. Restless at times. Objective Vital Signs Date Time Temp Pulse Resp B/P (MAP) Pulse Ox O2 Delivery O2 Flow Rate FiO2 04/12/17 16:00 30 04/12/17 16:00 86 04/12/17 16:00 98.9 86 20 100/57 (71) 97 04/12/17 14:00 65 04/12/17 12:20 98 35 04/12/17 12:00 35 04/12/17 12:00 98.4 63 25 100/59 (73) 99 04/12/17 12:00 63 04/12/17 10:22 100 35 04/12/17 10:00 65 04/12/17 08:00 84 04/12/17 08:00 35 04/12/17 08:00 97.4 84 21 109/60 (76) 99 04/12/17 06:00 71 04/12/17 05:03 98 40 04/12/17 04:00 50 04/12/17 04:00 89 04/12/17 04:00 98.4 89 23 150/72 (98) 100 04/12/17 02:00 79 04/12/17 01:10 100 50 04/12/17 00:00 98.1 79 19 84/55 (65) 100 04/12/17 00:00 50 04/12/17 00:00 79 04/11/17 22:45 100 50 04/11/17 22:00 96 04/11/17 20:04 99 50 04/11/17 20:00 85 04/11/17 20:00 98.2 86 19 82/54 (63) 99 04/11/17 20:00 50 04/11/17 18:00 100 I/O 04/11/17 04/11/17 04/11/17 04/12/17 04/12/17 04/12/17 07:00 15:00 23:00 07:00 15:00 23:00 Intake Total 100 ml 820 ml 844 ml 303 ml 110 ml Output Total 200 ml 200 ml Balance 100 ml 620 ml 644 ml 303 ml 110 ml Intake IV Total 100 ml 820 ml 844 ml 303 ml 110 ml Output Urine Total 200 ml 200 ml Result Diagram: 04/12/17 0320 04/12/17 1503 Objective Remarks GENERAL: This is an averagely built elderly lady who is intubated and sedated. She is somewhat restless. HEENT: The head normocephalic. Pupils are reactive. Sclerae were clear. Nasal mucosa edematous. Ears no inflammation. NECK: Supple. No lymphadenopathy. There is mild venous distension while laying flat. Trachea midline. No thyromegaly. CHEST: Equal movements with an increased AP diameter with bilateral expiratory wheezes. few crackles at the right base. HEART: Sounds are regular S1, S2 and tachycardic with no murmur. ABDOMEN: Soft, nontender. No organomegaly. Bowel sounds are active. EXTREMITIES: No lesions or edema. Peripheral pulses are diminished. NEUROLOGIC: Reflexes are 1+. Babinski negative. The patient is sedated. SKIN: No lesions were observed. Assessment and Plan Assessment and Plan IMPRESSION 1. Hypercapnic respiratory failure. 2. 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 History of hypertension 4. History of coronary artery disease with stenting 5. History of peptic ulcer disease. Plan : 1. Wean Fio2 and Vent rates. 2. CPAP trial and NIF ,FVC. 3. Cont Antibiotics per Dr Alarcon 4. CXR,CBC in am 5. Solumedrol 40 mg IV q6h. 6. [id number] with duoneb. 7. Tube feeds at 40 CC. Lincoln Martínez MD Apr 12, 2017 17:43
[2017-04-12] MEDS: PIPERACIL-TAZO 2.25 GM PREMIX 50 ML IV SCH (21:53)
[2017-04-13] VITALS (37 sets, daily range): BP systolic 118–175; BP diastolic 58–112; PULSE 63–125; RESP 8–21; TEMP 97.9–98.8; O2SAT 93–99
[2017-04-13] MEDS: PIPERACIL-TAZO 2.25 GM PREMIX 50 ML IV SCH ×4 (01:49→20:22)
[2017-04-13] MEDS: INSULIN NovoLIN REGULAR SUPPLEMENTAL SCALE SQ SCH ×6 (01:49→22:00)
[2017-04-13] MEDS: methylPREDNISolone SOD SUCC 40 MG/1 ML VIAL IV PUSH SCH ×4 (01:49→18:30)
[2017-04-13] MEDS: CHLORHEXIDINE GLUCONATE 2 % 1 PACK (2 CLOTHS) TOP SCH (03:23)
[2017-04-13] MEDS: DILTIAZEM HCL 30 MG TAB PO SCH ×4 (03:23→20:23)
[2017-04-13] MEDS: RESP: IPRATROPIUM 0.5 MG/2.5 ML NEB NEB SCH ×4 (03:38→21:18)
[2017-04-13 03:56] LABS: AUTOMATED NEUTROPHIL # 13.1 TH/MM3 (1.8-7.7); BASOPHIL % 0.1 % (0.0-2.0); HEMATOCRIT 37.1 % (35.0-46.0); HEMO FLAGS DIFF FINAL; LYMPH % 1.6 % (9.0-44.0); LYMPHOCYTE # 0.2 TH/MM3 (1.0-4.8); MEAN CELL VOLUME 98.3 FL (80.0-100.0); MEAN CORPUSCULAR HEMOGLOBIN 32.5 PG (27.0-34.0); MEAN CORPUSCULAR HGB CONC 33.1 % (32.0-36.0); MONO % 5.5 % (0.0-8.0); NEUT % 92.8 % (16.0-70.0); PLATELET COUNT 233 TH/MM3 (150-450); RED BLOOD COUNT 3.78 MIL/MM3 (4.00-5.30); RED CELL DISTRIBUTION WIDTH 14.5 % (11.6-17.2); WHITE BLOOD COUNT 14.2 TH/MM3 (4.0-11.0)
[2017-04-13 04:12] LABS: APTT (PATIENT) 35.3 SEC (24.3-30.1)
[2017-04-13 04:18] LABS: ALT (GPT) 39 U/L (10-53); ANION GAP 8 MEQ/L (5-15); AST (GOT) 77 U/L (15-37); BICARBONATE 22.1 MEQ/L (21.0-32.0); BLOOD UREA NITROGEN 37 MG/DL (7-18); CHLORIDE 112 MEQ/L (98-107); GLOMERULAR FILTRATION RATE 30 ML/MIN (>89); SODIUM (NA) 142 MEQ/L (136-145)
[2017-04-13 04:21] LABS: ALKALINE PHOSPHATASE 85 U/L (45-117); TOTAL BILIRUBIN ADULT 0.2 MG/DL (0.2-1.0)
[2017-04-13] MEDS: SODIUM CHLOR 0.9% 1000 ML INJ 1,000 ML IV SCH (04:24)
[2017-04-13] MEDS: PROPOFOL 1000 MG/100 ML INJ 100 ML IV PRN (04:43)
--- NOTE | 2017-04-13 06:11 | RADRPT ---
EXAM DATE/TIME: 04/13/2017 04:32 [place] COMPARISON: CHEST SINGLE AP, April 11, 2017, 12:05. INDICATIONS : Shortness of breath, possible pulmonary disease. MEDICAL HISTORY : Hypertension. Chronic obstructive pulmonary disease. Cardiovascular disease. Asthma SURGICAL HISTORY : Coronary artery stent. ENCOUNTER: Subsequent ACUITY: 3 days PAIN SCORE: Non-responsive. LOCATION: Bilateral chest FINDINGS: ET tube tip well above the jesus. Gastric tube tip projects within the stomach. The lungs are symm etrically aerated. No infiltrate seen. The heart is normal in size. CONCLUSION: The lungs are clear. Brandon Garcia MD on April 13, 2017 at 6:09 Board Certified Radiologist. This report was verified electronically.
--- NOTE | 2017-04-13 07:23 | HHI.CCPN ---
Subjective Remarks/Hospital Course The patient is a 81-year-old female with a past medical history of COPD, coronary artery disease, hypertension, gastroesophageal reflux disease, peptic ulcer disease who presented to [facility] ED with a one-day history of worsening shortness of breath. She denies any use of home oxygen and was placed on Ceftin and tapered dose of prednisone since last by her outpatient manager plant, Dr. Alarcon. There is no history of any associated symptoms of chest pain, orthopnea, PND or edema of lower extremities. On arrival to the ED the patient was hypertensive and tachycardiac with heart rate of one 130s to 150s. Her initial chest x-ray on arrival showed COPD changes, atelectasis in the right lower lobe. The patient was initially tried on BiPap without any improvements in her respiratory status. She was initially admitted to the hospitalist service. However, in the ED the patient was intubated and placed on mechanical ventilation for respiratory failure. Chest x-ray post- intubation showed ET tube above the jesus, right basilar atelectasis. She was given Solu-Medrol 125 mg IV push in the ED along with aspirin, bronchodilator and potassium supplement. There is no history of any prior intubation for her COPD. In addition, no history of any cough or constitutional symptoms. 04/12 Patient remains sedated with Diprivan, Fentanyl and intubated. Started on Heparin drip last night for elevated trop. Renal function worse with Cr: 1.58 from 1.01 and K 6.3 04/13 No events overnight. Remains intubated and sedated, On Heparin drip. Afebrile. Objective Vital Signs Date Time Temp Pulse Resp B/P (MAP) Pulse Ox O2 Delivery O2 Flow Rate FiO2 04/13/17 06:00 63 04/13/17 04:00 98.3 20 122/58 (79) 98 04/13/17 04:00 30 04/11/17 16:45 Ventilator 04/11/17 10:40 2.00 Intake and Output 04/13/17 04/13/17 04/14/17 08:00 16:00 00:00 Intake Total 1935.2 ml Output Total 350 ml Balance 1585.2 ml Result Diagram: 04/13/17 0324 04/13/17 0324 Other Results Laboratory Tests Test 04/12/17 08:51 04/12/17 13:08 04/12/17 15:00 04/12/17 15:03 Troponin I 1.47 NG/ML Activated Partial Thromboplast Time 42.7 SEC Potassium Level 5.6 MEQ/L 5.5 MEQ/L Blood Gas Puncture Site RT RADIAL Blood Gas Patient Temperature 98.6 Blood Gas HCO3 22 mmol/L Blood Gas Base Excess -4.5 mmol/L Blood Gas Oxygen Saturation 97 % Arterial Blood pH 7.24 Arterial Blood Partial Pressure CO2 52 mmHg Arterial Blood Partial Pressure O2 130 mmHg Arterial Blood Oxygen Content 16.7 Vol % Arterial Blood Carboxyhemoglobin 0.3 % Arterial Blood Methemoglobin 1.1 % Blood Gas Hemoglobin 12.1 G/DL Oxygen Delivery Device VENTILATOR Blood Gas Ventilator Setting PRVC12/450/+5PEEP Blood Gas Inspired Oxygen 35 % Test 04/12/17 17:00 04/12/17 21:13 04/13/17 03:24 Blood Gas Puncture Site RT RADIAL Blood Gas Patient Temperature 98.6 Blood Gas HCO3 20 mmol/L Blood Gas Base Excess -5.9 mmol/L Blood Gas Oxygen Saturation 96 % Arterial Blood pH 7.25 Arterial Blood Partial Pressure CO2 48 mmHg Arterial Blood Partial Pressure O2 115 mmHg Arterial Blood Oxygen Content 17.9 Vol % Arterial Blood Carboxyhemoglobin 0.4 % Arterial Blood Methemoglobin 1.2 % Blood Gas Hemoglobin 13.2 G/DL Oxygen Delivery Device VENTILATOR Blood Gas Ventilator Setting PRVC18/500/+5PEEP Blood Gas Inspired Oxygen 30 % Activated Partial Thromboplast Time 35.0 SEC 35.3 SEC White Blood Count 14.2 TH/MM3 Red Blood Count 3.78 MIL/MM3 Hemoglobin 12.3 GM/DL Hematocrit 37.1 % Mean Corpuscular Volume 98.3 FL Mean Corpuscular Hemoglobin 32.5 PG Mean Corpuscular Hemoglobin Concent 33.1 % Red Cell Distribution Width 14.5 % Platelet Count 233 TH/MM3 Mean Platelet Volume 9.0 FL Neutrophils (%) (Auto) 92.8 % Lymphocytes (%) (Auto) 1.6 % Monocytes (%) (Auto) 5.5 % Eosinophils (%) (Auto) 0.0 % Basophils (%) (Auto) 0.1 % Neutrophils # (Auto) 13.1 TH/MM3 Lymphocytes # (Auto) 0.2 TH/MM3 Monocytes # (Auto) 0.8 TH/MM3 Eosinophils # (Auto) 0.0 TH/MM3 Basophils # (Auto) 0.0 TH/MM3 CBC Comment DIFF FINAL Differential Comment Blood Urea Nitrogen 37 MG/DL Creatinine 1.65 MG/DL Random Glucose 148 MG/DL Total Protein 6.0 GM/DL Albumin 2.5 GM/DL Calcium Level 7.7 MG/DL Alkaline Phosphatase 85 U/L Aspartate Amino Transf (AST/SGOT) 77 U/L Alanine Aminotransferase (ALT/SGPT) 39 U/L Total Bilirubin 0.2 MG/DL Sodium Level 142 MEQ/L Potassium Level 5.0 MEQ/L Chloride Level 112 MEQ/L Carbon Dioxide Level 22.1 MEQ/L Anion Gap 8 MEQ/L Estimat Glomerular Filtration Rate 30 ML/MIN Imaging Last Impressions Chest X-Ray 04/13/17 0600 Signed Impressions: Service Date/Time: , April 13, 2017 04:32 - CONCLUSION: The lungs are clear. Brandon Garcia MD Objective Remarks GENERAL: Patient is 81 yo intubated and sedated SKIN: Warm and dry. HEAD: Normocephalic. EYES: No scleral icterus. No injection or drainage. NECK: Supple, trachea midline. No JVD or lymphadenopathy. CARDIOVASCULAR: Regular rate and rhythm without murmurs, gallops, or rubs. RESPIRATORY: Breath sounds equal bilaterally. Diminished GASTROINTESTINAL: Abdomen soft, non-tender, nondistended. MUSCULOSKELETAL: No cyanosis, or edema. Neuro: Sedated A/P Assessment and Plan 1. VDRF 2. COPD exacerbation. 3. Hypertension. 4. LIO. 5.NSTEMI 6. History CAD with previous stent placements. 7. GERD 8. Peptic ulcer disease. Plan Neuro: On Diprivan/ Fentanyl infusion for sedation and vent synchrony. Daily sedation vacation Pulm: Continue vent support and maintain sats >2%. Bronchodilators, Solu-Medrol 40 mg IV q. 6. ICU vent bundle. Check ABG CV: Monitor HR and BP and maintain MAP>65 mmHg. Continue Aspirin 81 mg daily, Cardizem 30 mg q. Echo from March 2016 showed an EF of 60-65%. Monitor trop, continue with Heparin drip. Cards is following- Dr. Ontiveros. Echo showed EF: 45-50%. Distal anteroseptal and apical hypokinesis : Monitor renal function I's and O's and electrolyte replacement per protocol. avoid nephrotoxins Renal function worse today with Cr: 1.65 today from1.58 Diurese with Lasix 50mg IV x1, d/c IVF GI: On Pepcid 20 mg IV q. 12 for GI prophylaxis. On tube feeds-Glucerna 1.5 with goal rate 45ml/hr ID: Continue with abx( Zosyn, Azithromycin) for COPD exacerbation and monitor for signs of infections(fever and WBC). Check sputum culture, UA with cx if indicated. Heme: Monitor CBC, coags- on hpearin drip Endo: SSI with Accu-Cheks for glycemic control GI prophylaxis with Pepcid 20 mg q. 12. DVT prophylaxis with SCDs and heparin subcu. Level 3 Yeni Person MD Apr 13, 2017 07:23
[2017-04-13] MEDS ORDERED: FUROSEMIDE 40 MG/4 ML VIAL IV PUSH ONE ×2 (07:30→13:00)
[2017-04-13] MEDS: fentaNYL DRIP 250 ML IV PRN (07:58)
[2017-04-13] MEDS: ASPIRIN 81 MG CHEW TAB CHEW SCH (08:01)
[2017-04-13] MEDS: BUDESONIDE-FORMOTEROL 160/4.5 MCG INHALER INH SCH ×2 (08:02→20:23)
[2017-04-13] MEDS: SODIUM CHLORIDE 0.9% FLUSH 10 ML FLUSH IV FLUSH SCH ×2 (08:02→20:23)
[2017-04-13] MEDS: FAMOTIDINE 20 MG/2 ML VIAL IV PUSH SCH ×2 (08:03→20:22)
[2017-04-13] MEDS: DOCUSATE SODIUM 50 MG/SENNA 8.6 MG TAB PO SCH ×2 (08:03→20:22)
--- NOTE | 2017-04-13 08:42 | PD.CARD.PN ---
Subjective Subjective Remarks patient remains intubated, arousable. no events overnight Objective Medications Current Medications Medications (Trade) Dose Ordered Sig/Michael Route Start Time Stop Time Status Last Admin (NS Flush) 2 ml UNSCH PRN IV FLUSH 04/11/17 10:15 (NS Flush) 2 ml BID IV FLUSH 04/11/17 21:00 04/13/17 08:02 (Narcan Inj) 0.4 mg UNSCH PRN IV PUSH 04/11/17 10:15 (Atrovent Neb) 0.5 mg Q6HR NEB NEB 04/11/17 16:00 04/13/17 03:38 (Atrovent Neb) 0.5 mg Q2HR NEB PRN NEB 04/11/17 14:30 (SoluMEDROL INJ) 40 mg Q6H IV PUSH 04/11/17 18:30 04/13/17 05:55 Propofol 100 ml @ 1.395 mls/ hr TITRATE PRN IV 04/11/17 12:00 04/13/17 04:43 (Pepcid Inj) 20 mg Q12HR IV PUSH 04/11/17 13:30 04/13/17 08:03 (Heparin Inj) 5,000 units Q12H SQ 04/11/17 13:00 Future Hold 04/11/17 14:22 Miscellaneous Information 1 Q361D XX 04/11/17 12:15 (Chlorhexidine 2% Cloth) 3 pack Taper DAILY@04 TOP 04/12/17 04:00 04/08/18 03:59 04/13/17 03:23 (Chlorhexidine 2% Cloth) 3 pack UNSCH PRN TOP 04/11/17 12:15 (Anai-Colace) 1 tab BID PO 04/11/17 21:00 04/13/17 08:03 (Milk Of Magnesia Liq) 30 ml Q12H PRN PO 04/11/17 12:15 (Senokot) 17.2 mg Q12H PRN PO 04/11/17 12:15 (Dulcolax Supp) 10 mg DAILY PRN RECTAL 04/11/17 12:15 (Lactulose Liq) 30 ml DAILY PRN PO 04/11/17 12:15 Potassium Chloride 100 ml @ 50 mls/hr Q2H PRN IV 04/11/17 12:15 Potassium Chloride 100 ml @ 50 mls/hr Q2H PRN IV 04/11/17 12:15 (K-Lyte Cl Eff) 50 meq UNSCH PRN PO 04/11/17 12:15 Potassium Chloride 100 ml @ 25 mls/hr UNSCH PRN IV 04/11/17 12:15 Potassium Chloride 100 ml @ 50 mls/hr Q2H PRN IV 04/11/17 12:15 Magnesium Sulfate 4 gm/Sodium Chloride 100 ml @ 50 mls/hr UNSCH PRN IV 04/11/17 12:15 (Mag-Ox) 800 mg UNSCH PRN PO 04/11/17 12:15 Magnesium Sulfate 2 gm/Sodium Chloride 100 ml @ 50 mls/hr UNSCH PRN IV 04/11/17 12:15 (K-Phos) 2,000 mg Q4H PRN PO 04/11/17 12:15 Sodium Phosphate 30 mmol/Sodium Chloride 250 ml @ 42 mls/hr UNSCH PRN IV 04/11/17 12:15 (K-Phos) 2,000 mg UNSCH PRN PO/TUBE 04/11/17 12:15 Potassium Phosphate 30 mmol/ Sodium Chloride 260 ml @ 42 mls/hr UNSCH PRN IV 04/11/17 12:15 (Aspirin Chew) 81 mg DAILY CHEW 04/12/17 09:00 04/13/17 08:01 Fentanyl Citrate 250 ml @ 5 mls/hr TITRATE PRN IV 04/11/17 14:00 04/13/17 07:58 (Cardizem) 30 mg Q6H PO 04/11/17 14:00 04/13/17 03:23 (D50w (Vial) Inj) 50 ml UNSCH PRN IV PUSH 04/11/17 13:30 (Glucagon Inj) 1 mg UNSCH PRN OTHER 04/11/17 13:30 (NovoLIN R SUPPLEMENTAL SCALE) 1 Q4H SQ 04/11/17 14:00 04/11/17 15:03 (Symbicort 160-4.5 Mcg Inh) 2 puff Q12HR INH 04/11/17 21:00 Azithromycin 500 mg/Sodium Chloride 250 ml @ 250 mls/hr Q24H IV 04/11/17 17:45 04/12/17 16:51 Heparin Sodium/ Dextrose 250 ml @ 6 mls/hr TITRATE PRN IV 04/11/17 18:15 04/11/17 21:37 (Heparin Inj) 5,000 units UNSCH PRN IV PUSH 04/11/17 18:15 (Heparin Inj) 2,500 units UNSCH PRN IV PUSH 04/11/17 18:15 Piperacillin Sod/ Tazobactam Sod 50 ml @ 100 mls/hr Q6H IV 04/12/17 20:00 04/13/17 08:01 Vital Signs / I&O Vital Signs Date Time Temp Pulse Resp B/P (MAP) Pulse Ox O2 Delivery O2 Flow Rate FiO2 04/13/17 06:00 63 04/13/17 04:00 98.3 73 20 122/58 (79) 98 04/13/17 04:00 30 04/13/17 04:00 73 04/13/17 03:39 98 30 04/13/17 02:00 81 04/13/17 01:11 99 30 04/13/17 00:00 30 04/13/17 00:00 80 04/13/17 00:00 98.8 80 20 130/98 (109) 99 04/12/17 22:00 84 04/12/17 20:12 97 30 04/12/17 20:00 99.1 87 20 127/59 (81) 98 04/12/17 20:00 30 04/12/17 20:00 87 04/12/17 18:00 92 04/12/17 17:53 98 30 04/12/17 16:00 30 04/12/17 16:00 86 04/12/17 16:00 98.9 86 20 100/57 (71) 97 04/12/17 14:00 65 04/12/17 12:20 98 35 04/12/17 12:00 35 04/12/17 12:00 98.4 63 25 100/59 (73) 99 04/12/17 12:00 63 04/12/17 10:22 100 35 04/12/17 10:00 65 I/O 04/12/17 04/12/17 04/12/17 04/13/17 04/13/17 04/13/17 07:00 15:00 23:00 07:00 15:00 23:00 Intake Total 844 ml 303 ml 591 ml 1935.2 ml 250 ml Output Total 200 ml 250 ml 350 ml Balance 644 ml 303 ml 341 ml 1585.2 ml 250 ml Intake IV Total 844 ml 303 ml 410 ml 1425.2 ml 250 ml Tube Feeding 151 ml 360 ml Tube Irrigant 150 ml Other 30 ml Output Urine Total 200 ml 250 ml 350 ml # Bowel Movements 1 Physical Exam GENERAL: SKIN: Warm and dry. HEAD: Atraumatic. Normocephalic. EYES: Pupils equal and round. No scleral icterus. No injection or drainage. ENT: No nasal bleeding or discharge. NECK: Trachea midline. No JVD. CARDIOVASCULAR: Regular rate and rhythm. no murmurs RESPIRATORY: No accessory muscle use. decreased breath sounds bilaterally. she is intubated GASTROINTESTINAL: Abdomen soft, non-tender, nondistended. MUSCULOSKELETAL: Extremities without clubbing, cyanosis, or edema. No obvious deformities. NEUROLOGICAL: intubated, sedated Laboratory Laboratory Tests Test 04/12/17 08:51 04/12/17 13:08 04/12/17 15:00 04/12/17 15:03 Troponin I 1.47 NG/ML Activated Partial Thromboplast Time 42.7 SEC Potassium Level 5.6 MEQ/L 5.5 MEQ/L Blood Gas Puncture Site RT RADIAL Blood Gas Patient Temperature 98.6 Blood Gas HCO3 22 mmol/L Blood Gas Base Excess -4.5 mmol/L Blood Gas Oxygen Saturation 97 % Arterial Blood pH 7.24 Arterial Blood Partial Pressure CO2 52 mmHg Arterial Blood Partial Pressure O2 130 mmHg Arterial Blood Oxygen Content 16.7 Vol % Arterial Blood Carboxyhemoglobin 0.3 % Arterial Blood Methemoglobin 1.1 % Blood Gas Hemoglobin 12.1 G/DL Oxygen Delivery Device VENTILATOR Blood Gas Ventilator Setting PRVC12/450/+5PEEP Blood Gas Inspired Oxygen 35 % Test 04/12/17 17:00 04/12/17 21:13 04/13/17 03:24 Blood Gas Puncture Site RT RADIAL Blood Gas Patient Temperature 98.6 Blood Gas HCO3 20 mmol/L Blood Gas Base Excess -5.9 mmol/L Blood Gas Oxygen Saturation 96 % Arterial Blood pH 7.25 Arterial Blood Partial Pressure CO2 48 mmHg Arterial Blood Partial Pressure O2 115 mmHg Arterial Blood Oxygen Content 17.9 Vol % Arterial Blood Carboxyhemoglobin 0.4 % Arterial Blood Methemoglobin 1.2 % Blood Gas Hemoglobin 13.2 G/DL Oxygen Delivery Device VENTILATOR Blood Gas Ventilator Setting PRVC18/500/+5PEEP Blood Gas Inspired Oxygen 30 % Activated Partial Thromboplast Time 35.0 SEC 35.3 SEC White Blood Count 14.2 TH/MM3 Red Blood Count 3.78 MIL/MM3 Hemoglobin 12.3 GM/DL Hematocrit 37.1 % Mean Corpuscular Volume 98.3 FL Mean Corpuscular Hemoglobin 32.5 PG Mean Corpuscular Hemoglobin Concent 33.1 % Red Cell Distribution Width 14.5 % Platelet Count 233 TH/MM3 Mean Platelet Volume 9.0 FL Neutrophils (%) (Auto) 92.8 % Lymphocytes (%) (Auto) 1.6 % Monocytes (%) (Auto) 5.5 % Eosinophils (%) (Auto) 0.0 % Basophils (%) (Auto) 0.1 % Neutrophils # (Auto) 13.1 TH/MM3 Lymphocytes # (Auto) 0.2 TH/MM3 Monocytes # (Auto) 0.8 TH/MM3 Eosinophils # (Auto) 0.0 TH/MM3 Basophils # (Auto) 0.0 TH/MM3 CBC Comment DIFF FINAL Differential Comment Blood Urea Nitrogen 37 MG/DL Creatinine 1.65 MG/DL Random Glucose 148 MG/DL Total Protein 6.0 GM/DL Albumin 2.5 GM/DL Calcium Level 7.7 MG/DL Alkaline Phosphatase 85 U/L Aspartate Amino Transf (AST/SGOT) 77 U/L Alanine Aminotransferase (ALT/SGPT) 39 U/L Total Bilirubin 0.2 MG/DL Sodium Level 142 MEQ/L Potassium Level 5.0 MEQ/L Chloride Level 112 MEQ/L Carbon Dioxide Level 22.1 MEQ/L Anion Gap 8 MEQ/L Estimat Glomerular Filtration Rate 30 ML/MIN Imaging Last 24 hours Impressions Chest X-Ray 04/13/17 0600 Signed Impressions: Service Date/Time: March 04:32 - CONCLUSION: The lungs are clear. Brandon Garcia MD Assessment and Plan Problem List: (1) Coronary artery disease ICD Codes: I25.10 - Atherosclerotic heart disease of [place] coronary artery without angina pectoris Status: Acute (2) COPD (chronic obstructive pulmonary disease) ICD Codes: J44.9 - Chronic obstructive pulmonary disease, unspecified Status: Acute (3) Acute respiratory failure ICD Codes: J96.00 - Acute respiratory failure, unspecified whether with hypoxia or hypercapnia Status: Acute (4) Elevated troponin ICD Codes: R74.8 - Abnormal levels of other serum enzymes Status: Acute Assessment and Plan 81 yo WF with COPD, CAD and HTN admitted for respiratory distress requiring intubation. COPD, respiratory insufficiency- remains on ventilator support NSTEMI- elevated troponin likely demand mediated. echo shows reduced EF 40-45% (as compared to 2016 study 60-65%), distal anteroseptal and apical hypokinesis consider cardiac catheterization before discharge? Suzy Alves Apr 13, 2017 08:42
[2017-04-13 12:58] LABS: BLOOD GAS BASE EXCESS -2.8 mmol/L (-2-2); BLOOD GAS CARBOXYHEMOGLOBIN 0.4 % (0-4); BLOOD GAS HCO3 22 mmol/L (22-26); BLOOD GAS METHEMOGLOBIN 1.1 % (0-2); BLOOD GAS O2 HGB SATURATION 97 % (90-100); BLOOD GAS OXYGEN CONTENT 18.5 Vol % (12.0-20.0); BLOOD GAS PCO2 46 mmHg (38-42); BLOOD GAS PO2 152 mmHg (61-120); BLOOD GAS TOTAL HGB 13.3 G/DL (12.0-16.0); CRITICAL VALUE NO; DRAW SITE RT RADIAL; FIO2 35 %; NUMBER OF ARTERIAL PUNCTURES 1; OXYGEN DEVICE VENTILATOR; STAT NO; TEMP CORR TO 98.6; ULNAR PULSE PRESENT; VENT SETTINGS CPAP 5/8PS
[2017-04-13 15:15] LABS: BLOOD, URINE MOD (NEG); COMMENT (UR) CATH-CULT NOT IND; CULTURE IF INDICATED CATH CULTURE NOT IND; GLUCOSE,URINE NEG (NEG); KETONE, URINE NEG (NEG); MUCUS URINE FEW /lpf (OCC); NITRITE,URINE NEG (NEG); SQUAMOUS EPITHELIAL CELL URINE <1 /hpf (0-5); URINE COLOR COLORLESS (YELLW/STRAW)
[2017-04-13] MEDS: AZITHROMYCIN INJ 500 MG in SODIUM CHLOR 0.9% 250 ML INJ 250 ML IV SCH (17:45)
--- NOTE | 2017-04-13 19:15 | HHI.PR ---
Subjective Remarks Extubated and on a N/C 4 L. Feels tired, Output was good.. Alert and talking. Objective Vital Signs Date Time Temp Pulse Resp B/P (MAP) Pulse Ox O2 Delivery O2 Flow Rate FiO2 04/13/17 16:00 105 16 157/102 (120) 95 04/13/17 16:00 105 04/13/17 15:47 113 04/13/17 15:46 114 04/13/17 15:30 104 04/13/17 15:00 125 04/13/17 14:56 111 04/13/17 14:55 111 04/13/17 14:00 103 04/13/17 13:07 95 Nasal Cannula 3.00 04/13/17 13:07 93 Nasal Cannula 3 04/13/17 12:04 99 04/13/17 12:04 99 8 149/89 (109) 93 04/13/17 12:00 108 15 174/111 (132) 94 04/13/17 12:00 30 04/13/17 12:00 108 04/13/17 11:29 94 30 04/13/17 11:00 94 20 144/85 (104) 93 04/13/17 11:00 94 04/13/17 10:30 98 04/13/17 10:30 98 20 148/96 (113) 94 04/13/17 10:00 89 20 143/93 (110) 94 04/13/17 10:00 89 04/13/17 09:40 99 04/13/17 09:40 99 20 148/95 (112) 94 04/13/17 09:34 105 19 154/99 (117) 94 04/13/17 09:34 105 04/13/17 09:33 108 04/13/17 09:33 108 19 147/109 (122) 94 04/13/17 09:30 104 21 160/112 (128) 94 04/13/17 09:30 104 04/13/17 09:00 88 20 152/92 (112) 94 04/13/17 09:00 88 04/13/17 08:48 95 30 04/13/17 08:34 100 04/13/17 08:34 100 14 158/97 (117) 95 04/13/17 08:30 97 04/13/17 08:30 97 20 175/100 (125) 96 04/13/17 08:00 30 04/13/17 08:00 64 04/13/17 08:00 98.4 64 20 118/70 (86) 94 04/13/17 06:00 63 04/13/17 04:00 98.3 73 20 122/58 (79) 98 04/13/17 04:00 30 04/13/17 04:00 73 04/13/17 03:39 98 30 04/13/17 02:00 81 04/13/17 01:11 99 30 04/13/17 00:00 30 04/13/17 00:00 80 04/13/17 00:00 98.8 80 20 130/98 (109) 99 04/12/17 22:00 84 04/12/17 20:12 97 30 04/12/17 20:00 99.1 87 20 127/59 (81) 98 04/12/17 20:00 30 04/12/17 20:00 87 I/O 04/12/17 04/12/17 04/12/17 04/13/17 04/13/17 04/13/17 07:00 15:00 23:00 07:00 15:00 23:00 Intake Total 844 ml 303 ml 591 ml 1935.2 ml 250 ml Output Total 200 ml 250 ml 350 ml Balance 644 ml 303 ml 341 ml 1585.2 ml 250 ml Intake IV Total 844 ml 303 ml 410 ml 1425.2 ml 250 ml Tube Feeding 151 ml 360 ml Tube Irrigant 150 ml Other 30 ml Output Urine Total 200 ml 250 ml 350 ml # Bowel Movements 1 Result Diagram: 04/13/17 0324 04/13/17 0324 Objective Remarks GENERAL: This is an averagely built elderly lady who is alert, Oriented. HEENT: The head normocephalic. Pupils are reactive. Sclerae were clear. Nasal mucosa edematous. Ears no inflammation. NECK: Supple. No lymphadenopathy. There is no venous distension. Trachea midline. No thyromegaly. CHEST: Equal movements with an increased AP diameter with bilateral expiratory wheezes. HEART: Sounds are regular S1, S2 and tachycardic with no murmur. ABDOMEN: Soft, nontender. No organomegaly. Bowel sounds are active. EXTREMITIES: No lesions or edema. Peripheral pulses are diminished. NEUROLOGIC: Reflexes are 1+. Babinski negative. SKIN: No lesions were observed. Assessment and Plan Assessment and Plan IMPRESSION 1. Hypercapnic respiratory failure. 2. 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 History of hypertension 4. History of coronary artery disease with stenting 5. History of peptic ulcer disease. Plan : 1. Wean O2 to 2 L 2. BIPAP at HS and PRN 12/5 , Fio2 28 % 3. Cont Antibiotics per Dr Alarcon 4. CXR,CBC in am 5. Solumedrol 40 mg IV q8h. 6. Nebs q6h with duoneb. 7. Symbicort 160/4.5 mcg , 2 puffs bid Lincoln Martínez MD Apr 13, 2017 19:15
[2017-04-13] MEDS ORDERED: hydrALAZINE HCL 20 MG/ML VIAL IV PUSH PRN (23:30)
[2017-04-13] MEDS ORDERED: LABETALOL HCL 100 MG/20 ML VIAL IV PUSH PRN (23:30)
[2017-04-14] VITALS (31 sets, daily range): BP systolic 129–156; BP diastolic 62–92; PULSE 75–100; RESP 18–42; TEMP 98–98.9; O2SAT 88–99
[2017-04-14] MEDS: methylPREDNISolone SOD SUCC 40 MG/1 ML VIAL IV PUSH SCH ×5 (00:25→21:48)
[2017-04-14] MEDS: DILTIAZEM HCL 30 MG TAB PO SCH ×4 (00:25→20:00)
[2017-04-14] MEDS: PIPERACIL-TAZO 2.25 GM PREMIX 50 ML IV SCH ×4 (00:25→20:00)
[2017-04-14] MEDS: INSULIN NovoLIN REGULAR SUPPLEMENTAL SCALE SQ SCH ×6 (02:00→21:46)
[2017-04-14] MEDS: RESP: IPRATROPIUM 0.5 MG/2.5 ML NEB NEB SCH ×4 (02:36→20:28)
[2017-04-14] MEDS ORDERED: FUROSEMIDE 40 MG/4 ML VIAL ONE (03:41)
[2017-04-14] MEDS ORDERED: FUROSEMIDE 100 MG/10 ML VIAL IV PUSH ONE (03:45)
[2017-04-14] MEDS: CHLORHEXIDINE GLUCONATE 2 % 1 PACK (2 CLOTHS) TOP SCH (04:00)
[2017-04-14 05:04] LABS: BLOOD GAS BASE EXCESS -1.6 mmol/L (-2-2); BLOOD GAS CARBOXYHEMOGLOBIN 0.2 % (0-4); BLOOD GAS HCO3 23 mmol/L (22-26); BLOOD GAS O2 HGB SATURATION 98 % (90-100); BLOOD GAS OXYGEN CONTENT 20.1 Vol % (12.0-20.0); BLOOD GAS PCO2 43 mmHg (38-42); BLOOD GAS PO2 254 mmHg (61-120); BLOOD GAS TOTAL HGB 14.2 G/DL (12.0-16.0); CRITICAL VALUE NO; OXYGEN DEVICE BIPAP; TEMP CORR TO 98.6
[2017-04-14 05:05] LABS: DRAW SITE RT BRACHIAL; FIO2 50 %; NUMBER OF ARTERIAL PUNCTURES 1; STAT YES; VENT SETTINGS IPAP 10/ EPAP 5
[2017-04-14] MEDS ORDERED: MIDAZOLAM HCL 2 MG/2 ML VIAL IV ONE (05:15)
--- NOTE | 2017-04-14 07:16 | HHI.CCPN ---
Subjective Remarks/Hospital Course The patient is a 81-year-old female with a past medical history of COPD, coronary artery disease, hypertension, gastroesophageal reflux disease, peptic ulcer disease who presented to [facility] ED with a one-day history of worsening shortness of breath. She denies any use of home oxygen and was placed on Ceftin and tapered dose of prednisone since last by her outpatient stencil inspector, Dr. Alarcon. There is no history of any associated symptoms of chest pain, orthopnea, PND or edema of lower extremities. On arrival to the ED the patient was hypertensive and tachycardiac with heart rate of one 130s to 150s. Her initial chest x-ray on arrival showed COPD changes, atelectasis in the right lower lobe. The patient was initially tried on BiPap without any improvements in her respiratory status. She was initially admitted to the hospitalist service. However, in the ED the patient was intubated and placed on mechanical ventilation for respiratory failure. Chest x-ray post- intubation showed ET tube above the jesus, right basilar atelectasis. She was given Solu-Medrol 125 mg IV push in the ED along with aspirin, bronchodilator and potassium supplement. There is no history of any prior intubation for her COPD. In addition, no history of any cough or constitutional symptoms. 04/12 Patient remains sedated with Diprivan, Fentanyl and intubated. Started on Heparin drip last night for elevated trop. Renal function worse with Cr: 1.58 from 1.01 and K 6.3 04/13 No events overnight. Remains intubated and sedated, On Heparin drip. Afebrile. 04/14 Patient was extubated yesterday placed on BIPAP overnight 04/04 with 35% FIO2. Lasix 60mg x1 given. Off Heparin drip. Objective Vital Signs Date Time Temp Pulse Resp B/P (MAP) Pulse Ox O2 Delivery O2 Flow Rate FiO2 04/14/17 06:00 94 04/14/17 04:53 95 50 04/14/17 04:00 98.3 22 132/65 (87) 04/13/17 21:20 Nasal Cannula 2.00 Intake and Output 04/14/17 04/14/17 04/15/17 08:00 16:00 00:00 Intake Total 50 ml Output Total 1600 ml Balance -1550 ml Result Diagram: 04/13/17 0324 04/13/17 0324 Other Results Laboratory Tests Test 04/13/17 10:00 04/13/17 11:35 04/13/17 12:00 04/13/17 12:50 Troponin I 0.69 NG/ML Activated Partial Thromboplast Time 40.0 SEC Urine Color COLORLESS Urine Turbidity CLEAR Urine pH 5.0 Urine Specific [place] 1.007 Urine Protein NEG mg/dL Urine Glucose (UA) NEG mg/dL Urine Ketones NEG mg/dL Urine Occult Blood MOD Urine Nitrite NEG Urine Bilirubin NEG Urine Urobilinogen LESS THAN 2.0 MG/DL Urine Leukocyte Esterase NEG Urine RBC 6 /hpf Urine WBC LESS THAN 1 /hpf Urine Squamous Epithelial Cells <1 /hpf Urine Mucus FEW /lpf Microscopic Urinalysis Comment CATH-CULT NOT IND Blood Gas Puncture Site RT RADIAL Blood Gas Patient Temperature 98.6 Blood Gas HCO3 22 mmol/L Blood Gas Base Excess -2.8 mmol/L Blood Gas Oxygen Saturation 97 % Arterial Blood pH 7.31 Arterial Blood Partial Pressure CO2 46 mmHg Arterial Blood Partial Pressure O2 152 mmHg Arterial Blood Oxygen Content 18.5 Vol % Arterial Blood Carboxyhemoglobin 0.4 % Arterial Blood Methemoglobin 1.1 % Blood Gas Hemoglobin 13.3 G/DL Oxygen Delivery Device VENTILATOR Blood Gas Ventilator Setting CPAP 5/8PS Blood Gas Inspired Oxygen 35 % Test 04/14/17 04:50 04/14/17 05:25 Blood Gas Puncture Site RT BRACHIAL Blood Gas Patient Temperature 98.6 Blood Gas HCO3 23 mmol/L Blood Gas Base Excess -1.6 mmol/L Blood Gas Oxygen Saturation 98 % Arterial Blood pH 7.35 Arterial Blood Partial Pressure CO2 43 mmHg Arterial Blood Partial Pressure O2 254 mmHg Arterial Blood Oxygen Content 20.1 Vol % Arterial Blood Carboxyhemoglobin 0.2 % Arterial Blood Methemoglobin 1.0 % Blood Gas Hemoglobin 14.2 G/DL Oxygen Delivery Device BIPAP Blood Gas Ventilator Setting IPAP 10/ EPAP 5 Blood Gas Inspired Oxygen 50 % Imaging Last Impressions Chest X-Ray 04/13/17 0600 Signed Impressions: Service Date/Time: March 04:32 - CONCLUSION: The lungs are clear. Brandon Garcia MD Objective Remarks GENERAL: Patient is 81 yo on BIPAP SKIN: Warm and dry. HEAD: Normocephalic. EYES: No scleral icterus. No injection or drainage. NECK: Supple, trachea midline. No JVD or lymphadenopathy. CARDIOVASCULAR: Regular rate and rhythm without murmurs, gallops, or rubs. RESPIRATORY: Breath sounds equal bilaterally. Diminished GASTROINTESTINAL: Abdomen soft, non-tender, nondistended. MUSCULOSKELETAL: No cyanosis, or edema. Neuro: Awake. A/P Assessment and Plan 1. Resp Insuff Extubated 04/13 2. COPD exacerbation. 3. Hypertension. 4. LIO. 5.NSTEMI 6. History CAD with previous stent placements. 7. GERD 8. Peptic ulcer disease. Plan Neuro: Awake, alert. Monitor neuro status and avoid sedatives Pulm: Continue with oxygen and maintain sats >2%. Bronchodilators, Solu-Medrol 40 mg IV q. 6. NIPPV PRN for resp distress. Discussed with patient and her daughter Farooq if there is any worsening in resp status then she would like to get reintubated. CV: Monitor HR and BP and maintain MAP>65 mmHg. Continue Aspirin 81 mg daily, Cardizem 30 mg q. Echo from March 2016 showed an EF of 60-65%. Cards is following- Dr. Ontiveros. Elevated trop likely demand mediated. Echo showed EF: 45-50%. Distal anteroseptal and apical hypokinesis. : Monitor renal function I's and O's and electrolyte replacement per protocol. avoid nephrotoxins Given Lasix 60mg x1 overnight. Follow up on BMP. GI: On Pepcid 20 mg IV q. 12 for GI prophylaxis. Keep NPO till resp status improves ID: Continue with abx( Zosyn, Azithromycin) for COPD exacerbation and monitor for signs of infections(fever and WBC). Check sputum culture, Heme: Monitor CBC, Endo: SSI with Accu-Cheks for glycemic control GI prophylaxis with Pepcid DVT prophylaxis with SCDs and heparin subcu. Follow up on labs Level 3 Yeni Person MD Apr 14, 2017 07:16
[2017-04-14 07:36] LABS: AUTOMATED NEUTROPHIL # 22.2 TH/MM3 (1.8-7.7); BASOPHIL # 0.1 TH/MM3 (0-0.2); BASOPHIL % 0.4 % (0.0-2.0); EOSINOPHIL % 0.1 % (0.0-4.0); HEMATOCRIT 43.2 % (35.0-46.0); LYMPH % 1.4 % (9.0-44.0); LYMPHOCYTE # 0.3 TH/MM3 (1.0-4.8); MEAN CELL VOLUME 97.8 FL (80.0-100.0); MEAN CORPUSCULAR HEMOGLOBIN 32.7 PG (27.0-34.0); MEAN CORPUSCULAR HGB CONC 33.4 % (32.0-36.0); MONO % 2.3 % (0.0-8.0); NEUT % 95.8 % (16.0-70.0); PLATELET COUNT 359 TH/MM3 (150-450); RED BLOOD COUNT 4.42 MIL/MM3 (4.00-5.30); RED CELL DISTRIBUTION WIDTH 14.4 % (11.6-17.2); WHITE BLOOD COUNT 23.2 TH/MM3 (4.0-11.0)
[2017-04-14 07:42] LABS: ANION GAP 12 MEQ/L (5-15); BICARBONATE 22.7 MEQ/L (21.0-32.0); BLOOD UREA NITROGEN 46 MG/DL (7-18); CHLORIDE 104 MEQ/L (98-107); GLOMERULAR FILTRATION RATE 34 ML/MIN (>89); POTASSIUM 4.3 MEQ/L (3.5-5.1); SODIUM (NA) 139 MEQ/L (136-145)
[2017-04-14 07:53] LABS: ALKALINE PHOSPHATASE 103 U/L (45-117); ALT (GPT) 46 U/L (10-53); AST (GOT) 59 U/L (15-37); TOTAL BILIRUBIN ADULT 0.4 MG/DL (0.2-1.0)
[2017-04-14 08:19] LABS: HEMO FLAGS AUTO DIFF
[2017-04-14 08:21] LABS: METAMYELOCYTES 1 % (0-1); NEUTROPHIL # MANUAL DIFF 22.5 TH/MM3 (1.8-7.7); POLYS (SEG NEUTROPHILS) 96 % (16-70); WBC DIFF SAMPLE 100
[2017-04-14 08:22] LABS: PLATELET ESTIMATE SMEAR NORMAL (NORMAL)
[2017-04-14 08:23] LABS: PLATELET MORPHOLOGY NORMAL (NORMAL); SCAN/DIFF FINAL DIFF MANUAL
[2017-04-14] MEDS: BUDESONIDE-FORMOTEROL 160/4.5 MCG INHALER INH SCH ×2 (09:00→20:04)
[2017-04-14] MEDS: DOCUSATE SODIUM 50 MG/SENNA 8.6 MG TAB PO SCH ×2 (09:00→20:04)
[2017-04-14] MEDS: FAMOTIDINE 20 MG/2 ML VIAL IV PUSH SCH ×2 (09:00→20:04)
[2017-04-14] MEDS: HEPARIN SODIUM - SQ 10,000 UNITS/ML VIAL SQ SCH ×2 (09:00→20:04)
[2017-04-14] MEDS: ASPIRIN 81 MG CHEW TAB CHEW SCH (09:00)
[2017-04-14] MEDS: SODIUM CHLORIDE 0.9% FLUSH 10 ML FLUSH IV FLUSH SCH ×2 (09:00→20:04)
--- NOTE | 2017-04-14 09:10 | PD.CARD.PN ---
Subjective Subjective Remarks patient has been extubated, bipap overnight now on nasal cannula. resting comfortably. denies chest pain Objective Medications Current Medications Medications (Trade) Dose Ordered Sig/Michael Route Start Time Stop Time Status Last Admin (NS Flush) 2 ml UNSCH PRN IV FLUSH 04/11/17 10:15 (NS Flush) 2 ml BID IV FLUSH 04/11/17 21:00 04/13/17 20:23 (Narcan Inj) 0.4 mg UNSCH PRN IV PUSH 04/11/17 10:15 (Atrovent Neb) 0.5 mg Q6HR NEB NEB 04/11/17 16:00 04/14/17 07:38 (Atrovent Neb) 0.5 mg Q2HR NEB PRN NEB 04/11/17 14:30 (SoluMEDROL INJ) 40 mg Q6H IV PUSH 04/11/17 18:30 04/14/17 06:10 Miscellaneous Information 1 Q361D XX 04/11/17 12:15 (Chlorhexidine 2% Cloth) 3 pack Taper DAILY@04 TOP 04/12/17 04:00 04/08/18 03:59 04/14/17 04:00 (Chlorhexidine 2% Cloth) 3 pack UNSCH PRN TOP 04/11/17 12:15 (Anai-Colace) 1 tab BID PO 04/11/17 21:00 04/13/17 20:22 (Milk Of Magnesia Liq) 30 ml Q12H PRN PO 04/11/17 12:15 (Senokot) 17.2 mg Q12H PRN PO 04/11/17 12:15 (Dulcolax Supp) 10 mg DAILY PRN RECTAL 04/11/17 12:15 (Lactulose Liq) 30 ml DAILY PRN PO 04/11/17 12:15 Potassium Chloride 100 ml @ 50 mls/hr Q2H PRN IV 04/11/17 12:15 Potassium Chloride 100 ml @ 50 mls/hr Q2H PRN IV 04/11/17 12:15 (K-Lyte Cl Eff) 50 meq UNSCH PRN PO 04/11/17 12:15 Potassium Chloride 100 ml @ 25 mls/hr UNSCH PRN IV 04/11/17 12:15 Potassium Chloride 100 ml @ 50 mls/hr Q2H PRN IV 04/11/17 12:15 Magnesium Sulfate 4 gm/Sodium Chloride 100 ml @ 50 mls/hr UNSCH PRN IV 04/11/17 12:15 (Mag-Ox) 800 mg UNSCH PRN PO 04/11/17 12:15 Magnesium Sulfate 2 gm/Sodium Chloride 100 ml @ 50 mls/hr UNSCH PRN IV 04/11/17 12:15 (K-Phos) 2,000 mg Q4H PRN PO 04/11/17 12:15 Sodium Phosphate 30 mmol/Sodium Chloride 250 ml @ 42 mls/hr UNSCH PRN IV 04/11/17 12:15 (K-Phos) 2,000 mg UNSCH PRN PO/TUBE 04/11/17 12:15 Potassium Phosphate 30 mmol/ Sodium Chloride 260 ml @ 42 mls/hr UNSCH PRN IV 04/11/17 12:15 (Aspirin Chew) 81 mg DAILY CHEW 04/12/17 09:00 04/13/17 08:01 (Cardizem) 30 mg Q6H PO 04/11/17 14:00 04/14/17 00:25 (D50w (Vial) Inj) 50 ml UNSCH PRN IV PUSH 04/11/17 13:30 (Glucagon Inj) 1 mg UNSCH PRN OTHER 04/11/17 13:30 (NovoLIN R SUPPLEMENTAL SCALE) 1 Q4H SQ 04/11/17 14:00 04/11/17 15:03 (Symbicort 160-4.5 Mcg Inh) 2 puff Q12HR INH 04/11/17 21:00 04/13/17 20:23 Azithromycin 500 mg/Sodium Chloride 250 ml @ 250 mls/hr Q24H IV 04/11/17 17:45 04/13/17 17:45 Piperacillin Sod/ Tazobactam Sod 50 ml @ 100 mls/hr Q6H IV 04/12/17 20:00 04/14/17 00:25 (Pepcid Inj) 10 mg Q12HR IV PUSH 04/13/17 21:00 04/13/17 20:22 (Trandate Inj) 20 mg Q15M PRN IV PUSH 04/13/17 23:30 (Apresoline Inj) 10 mg Q30M PRN IV PUSH 04/13/17 23:30 04/14/17 03:08 (Heparin Inj) 5,000 units Q12HR SQ 04/14/17 09:00 Vital Signs / I&O Vital Signs Date Time Temp Pulse Resp B/P (MAP) Pulse Ox O2 Delivery O2 Flow Rate FiO2 04/14/17 07:39 96 Nasal Cannula 3.00 04/14/17 06:00 94 04/14/17 04:53 95 50 04/14/17 04:00 98.3 75 22 132/65 (87) 93 04/14/17 04:00 75 04/14/17 03:28 94 35 04/14/17 02:00 94 04/14/17 00:00 88 04/14/17 00:00 98.0 88 19 149/92 (111) 97 04/13/17 22:00 88 04/13/17 21:20 97 Nasal Cannula 2.00 04/13/17 20:00 107 04/13/17 20:00 97.9 107 21 135/85 (102) 96 04/13/17 19:30 113 04/13/17 19:00 119 04/13/17 18:30 87 04/13/17 18:00 102 04/13/17 16:00 105 16 157/102 (120) 95 04/13/17 16:00 105 04/13/17 15:47 113 04/13/17 15:46 114 04/13/17 15:30 104 04/13/17 15:00 125 04/13/17 14:56 111 04/13/17 14:55 111 04/13/17 14:00 103 04/13/17 13:07 95 Nasal Cannula 3.00 04/13/17 13:07 93 Nasal Cannula 3 04/13/17 12:04 99 04/13/17 12:04 99 8 149/89 (109) 93 04/13/17 12:00 108 15 174/111 (132) 94 04/13/17 12:00 30 04/13/17 12:00 108 04/13/17 11:29 94 30 04/13/17 11:00 94 20 144/85 (104) 93 04/13/17 11:00 94 04/13/17 10:30 98 04/13/17 10:30 98 20 148/96 (113) 94 04/13/17 10:00 89 20 143/93 (110) 94 04/13/17 10:00 89 04/13/17 09:40 99 04/13/17 09:40 99 20 148/95 (112) 94 04/13/17 09:34 105 19 154/99 (117) 94 04/13/17 09:34 105 04/13/17 09:33 108 04/13/17 09:33 108 19 147/109 (122) 94 04/13/17 09:30 104 21 160/112 (128) 94 04/13/17 09:30 104 I/O 04/13/17 04/13/17 04/13/17 04/14/17 04/14/17 04/14/17 07:00 15:00 23:00 07:00 15:00 23:00 Intake Total 1935.2 ml 250 ml 950 ml 50 ml Output Total 350 ml 600 ml 1600 ml Balance 1585.2 ml 250 ml 350 ml -1550 ml Intake Oral 480 ml IV Total 1425.2 ml 250 ml 350 ml 50 ml Tube Feeding 360 ml Tube Irrigant 150 ml Other 120 ml Output Urine Total 350 ml 600 ml 1600 ml # Bowel Movements 1 1 3 Physical Exam GENERAL: SKIN: Warm and dry. HEAD: Atraumatic. Normocephalic. EYES: Pupils equal and round. No scleral icterus. No injection or drainage. ENT: No nasal bleeding or discharge. NECK: Trachea midline. No JVD. CARDIOVASCULAR: Regular rate and rhythm. no murmurs RESPIRATORY: No accessory muscle use. decreased breath sounds bilaterally. she is intubated GASTROINTESTINAL: Abdomen soft, non-tender, nondistended. MUSCULOSKELETAL: Extremities without clubbing, cyanosis, or edema. No obvious deformities. NEUROLOGICAL: alert and oriented Laboratory Laboratory Tests Test 04/13/17 10:00 04/13/17 11:35 04/13/17 12:00 04/13/17 12:50 Troponin I 0.69 NG/ML Activated Partial Thromboplast Time 40.0 SEC Urine Color COLORLESS Urine Turbidity CLEAR Urine pH 5.0 Urine Specific [place] 1.007 Urine Protein NEG mg/dL Urine Glucose (UA) NEG mg/dL Urine Ketones NEG mg/dL Urine Occult Blood MOD Urine Nitrite NEG Urine Bilirubin NEG Urine Urobilinogen LESS THAN 2.0 MG/DL Urine Leukocyte Esterase NEG Urine RBC 6 /hpf Urine WBC LESS THAN 1 /hpf Urine Squamous Epithelial Cells <1 /hpf Urine Mucus FEW /lpf Microscopic Urinalysis Comment CATH-CULT NOT IND Blood Gas Puncture Site RT RADIAL Blood Gas Patient Temperature 98.6 Blood Gas HCO3 22 mmol/L Blood Gas Base Excess -2.8 mmol/L Blood Gas Oxygen Saturation 97 % Arterial Blood pH 7.31 Arterial Blood Partial Pressure CO2 46 mmHg Arterial Blood Partial Pressure O2 152 mmHg Arterial Blood Oxygen Content 18.5 Vol % Arterial Blood Carboxyhemoglobin 0.4 % Arterial Blood Methemoglobin 1.1 % Blood Gas Hemoglobin 13.3 G/DL Oxygen Delivery Device VENTILATOR Blood Gas Ventilator Setting CPAP 5/8PS Blood Gas Inspired Oxygen 35 % Test 04/14/17 04:50 04/14/17 05:25 Blood Gas Puncture Site RT BRACHIAL Blood Gas Patient Temperature 98.6 Blood Gas HCO3 23 mmol/L Blood Gas Base Excess -1.6 mmol/L Blood Gas Oxygen Saturation 98 % Arterial Blood pH 7.35 Arterial Blood Partial Pressure CO2 43 mmHg Arterial Blood Partial Pressure O2 254 mmHg Arterial Blood Oxygen Content 20.1 Vol % Arterial Blood Carboxyhemoglobin 0.2 % Arterial Blood Methemoglobin 1.0 % Blood Gas Hemoglobin 14.2 G/DL Oxygen Delivery Device BIPAP Blood Gas Ventilator Setting IPAP 10/ EPAP 5 Blood Gas Inspired Oxygen 50 % White Blood Count 23.2 TH/MM3 Red Blood Count 4.42 MIL/MM3 Hemoglobin 14.4 GM/DL Hematocrit 43.2 % Mean Corpuscular Volume 97.8 FL Mean Corpuscular Hemoglobin 32.7 PG Mean Corpuscular Hemoglobin Concent 33.4 % Red Cell Distribution Width 14.4 % Platelet Count 359 TH/MM3 Mean Platelet Volume 9.8 FL Neutrophils (%) (Auto) 95.8 % Lymphocytes (%) (Auto) 1.4 % Monocytes (%) (Auto) 2.3 % Eosinophils (%) (Auto) 0.1 % Basophils (%) (Auto) 0.4 % Neutrophils # (Auto) 22.2 TH/MM3 Lymphocytes # (Auto) 0.3 TH/MM3 Monocytes # (Auto) 0.5 TH/MM3 Eosinophils # (Auto) 0.0 TH/MM3 Basophils # (Auto) 0.1 TH/MM3 CBC Comment AUTO DIFF Differential Total Cells Counted 100 Neutrophils % (Manual) 96 % Monocytes % 3 % Neutrophils # (Manual) 22.5 TH/MM3 Metamyelocytes 1 % Differential Comment FINAL DIFF MANUAL Platelet Estimate NORMAL Platelet Morphology Comment NORMAL Blood Urea Nitrogen 46 MG/DL Creatinine 1.49 MG/DL Random Glucose 195 MG/DL Total Protein 7.4 GM/DL Albumin 3.2 GM/DL Calcium Level 8.3 MG/DL Alkaline Phosphatase 103 U/L Aspartate Amino Transf (AST/SGOT) 59 U/L Alanine Aminotransferase (ALT/SGPT) 46 U/L Total Bilirubin 0.4 MG/DL Sodium Level 139 MEQ/L Potassium Level 4.3 MEQ/L Chloride Level 104 MEQ/L Carbon Dioxide Level 22.7 MEQ/L Anion Gap 12 MEQ/L Estimat Glomerular Filtration Rate 34 ML/MIN Assessment and Plan Problem List: (1) Coronary artery disease ICD Codes: I25.10 - Atherosclerotic heart disease of [place] coronary artery without angina pectoris Status: Acute (2) COPD (chronic obstructive pulmonary disease) ICD Codes: J44.9 - Chronic obstructive pulmonary disease, unspecified Status: Acute (3) Acute respiratory failure ICD Codes: J96.00 - Acute respiratory failure, unspecified whether with hypoxia or hypercapnia Status: Acute (4) Elevated troponin ICD Codes: R74.8 - Abnormal levels of other serum enzymes Status: Acute Assessment and Plan 81 yo WF with COPD, CAD and HTN admitted for respiratory distress requiring intubation. She is now extubated awake and alert. COPD, respiratory insufficiency- was on bipap overnight now comfortable on nasal cannula NSTEMI- elevated troponin likely demand mediated. echo shows reduced EF 40-45% (as compared to 2016 study 60-65%), distal anteroseptal and apical hypokinesis no chest pain. consider ischemic workup before discharge Suzy Alves Apr 14, 2017 09:10
[2017-04-14] MEDS ORDERED: ALPRAZolam 0.25 MG TAB PO ONE (12:45)
[2017-04-14 13:47] LABS: AUTOMATED NEUTROPHIL # 9.5 TH/MM3 (1.8-7.7); EOSINOPHIL % 0.1 % (0.0-4.0); HEMATOCRIT 38.2 % (35.0-46.0); HEMO FLAGS DIFF FINAL; LYMPH % 1.7 % (9.0-44.0); LYMPHOCYTE # 0.2 TH/MM3 (1.0-4.8); MEAN CELL VOLUME 95.4 FL (80.0-100.0); MEAN CORPUSCULAR HGB CONC 35.6 % (32.0-36.0); NEUT % 93.2 % (16.0-70.0); PLATELET COUNT 288 TH/MM3 (150-450); RED BLOOD COUNT 4.01 MIL/MM3 (4.00-5.30); RED CELL DISTRIBUTION WIDTH 13.8 % (11.6-17.2); WHITE BLOOD COUNT 10.2 TH/MM3 (4.0-11.0)
[2017-04-14] MEDS: AZITHROMYCIN INJ 500 MG in SODIUM CHLOR 0.9% 250 ML INJ 250 ML IV SCH (17:18)
--- NOTE | 2017-04-14 20:08 | HHI.PR ---
Subjective Remarks Extubated and on a N/C 4 L. Seems better but had an episode of dyspnea last PM. Was on BiPAP for 3 hrs. Output was good.. Alert and seems mildly SOB. Objective Vital Signs Date Time Temp Pulse Resp B/P (MAP) Pulse Ox O2 Delivery O2 Flow Rate FiO2 04/14/17 19:30 93 04/14/17 19:00 90 04/14/17 18:30 92 04/14/17 18:00 92 04/14/17 17:30 82 04/14/17 17:30 82 42 156/76 (102) 97 04/14/17 17:30 82 42 156/76 (102) 97 04/14/17 17:00 92 22 149/79 (102) 97 04/14/17 17:00 92 04/14/17 17:00 92 22 149/79 (102) 97 04/14/17 16:40 99 42 136/74 (94) 96 04/14/17 16:40 99 42 136/74 (94) 96 04/14/17 16:40 99 04/14/17 16:30 96 24 143/77 (99) 96 04/14/17 16:30 96 24 143/77 (99) 96 04/14/17 16:30 96 04/14/17 16:00 92 31 136/78 (97) 88 04/14/17 16:00 92 04/14/17 16:00 98.3 92 31 136/78 (97) 88 04/14/17 14:30 84 19 151/81 (104) 95 04/14/17 14:30 84 04/14/17 14:00 95 24 138/69 (92) 93 04/14/17 14:00 95 04/14/17 13:30 86 04/14/17 13:30 86 18 149/77 (101) 96 04/14/17 13:00 84 04/14/17 13:00 84 20 139/76 (97) 97 04/14/17 12:30 87 21 145/82 (103) 96 04/14/17 12:30 87 04/14/17 12:00 93 04/14/17 12:00 98.6 93 21 135/72 (93) 93 04/14/17 10:00 100 29 140/69 (92) 92 04/14/17 10:00 100 04/14/17 09:38 93 04/14/17 09:38 93 26 139/72 (94) 96 04/14/17 09:00 93 28 129/62 (84) 96 04/14/17 09:00 93 04/14/17 08:30 94 04/14/17 08:30 94 36 136/69 (91) 96 04/14/17 08:02 96 04/14/17 08:02 96 26 133/70 (91) 93 04/14/17 08:00 98.9 97 33 95 04/14/17 08:00 97 04/14/17 07:39 96 Nasal Cannula 3.00 04/14/17 06:00 94 04/14/17 04:53 95 50 04/14/17 04:00 98.3 75 22 132/65 (87) 93 04/14/17 04:00 75 04/14/17 03:28 94 35 04/14/17 02:00 94 04/14/17 00:00 88 04/14/17 00:00 98.0 88 19 149/92 (111) 97 04/13/17 22:00 88 04/13/17 21:20 97 Nasal Cannula 2.00 I/O 04/13/17 04/13/17 04/13/17 04/14/17 04/14/17 04/14/17 07:00 15:00 23:00 07:00 15:00 23:00 Intake Total 1935.2 ml 250 ml 950 ml 50 ml 480 ml Output Total 350 ml 600 ml 1600 ml 1200 ml Balance 1585.2 ml 250 ml 350 ml -1550 ml -720 ml Intake Oral 480 ml 480 ml IV Total 1425.2 ml 250 ml 350 ml 50 ml Tube Feeding 360 ml Tube Irrigant 150 ml Other 120 ml Output Urine Total 350 ml 600 ml 1600 ml 1200 ml # Bowel Movements 1 1 3 3 Result Diagram: 04/14/17 1326 04/14/17 0525 Objective Remarks GENERAL: This is an averagely built elderly lady who is alert, Oriented. HEENT: The head normocephalic. Pupils are reactive. Sclerae were clear. Nasal mucosa edematous. Ears no inflammation. NECK: Supple. No lymphadenopathy. There is no venous distension. Trachea midline. No thyromegaly. CHEST: Equal movements with an increased AP diameter with bilateral expiratory wheezes. Occ Crackles. HEART: Sounds are regular S1, S2 and tachycardic with no murmur. ABDOMEN: Soft, nontender. No organomegaly. Bowel sounds are active. EXTREMITIES: No lesions or edema. Peripheral pulses are diminished. NEUROLOGIC: Reflexes are 1+. Babinski negative. SKIN: No lesions were observed. Assessment and Plan Assessment and Plan IMPRESSION 1. Hypercapnic respiratory failure. 2. 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 History of hypertension 4. History of coronary artery disease with stenting 5. History of peptic ulcer disease. Plan : 1. Wean O2 to 2 L 2. BIPAP at HS and PRN 12/5 , Fio2 28 % 3. Cont Antibiotics per Dr Alarcon 4. BMP,CBC in am 5. Solumedrol 40 mg IV q8h. 6. Nebs q6h with duoneb. 7. Symbicort 160/4.5 mcg , 2 puffs bid 8. Lasix 20 mg if needed Lincoln Martínez MD Apr 14, 2017 20:08
[2017-04-15] VITALS (14 sets, daily range): BP systolic 131–176; BP diastolic 66–89; PULSE 92–99; RESP 20–38; TEMP 97.1–98.4; O2SAT 97–100
[2017-04-15] MEDS: INSULIN NovoLIN REGULAR SUPPLEMENTAL SCALE SQ SCH ×6 (02:00→22:00)
[2017-04-15] MEDS: PIPERACIL-TAZO 2.25 GM PREMIX 50 ML IV SCH ×4 (02:24→20:00)
[2017-04-15] MEDS: DILTIAZEM HCL 30 MG TAB PO SCH ×3 (02:24→15:01)
[2017-04-15] MEDS: RESP: IPRATROPIUM 0.5 MG/2.5 ML NEB NEB SCH ×4 (02:45→21:07)
[2017-04-15] MEDS: CHLORHEXIDINE GLUCONATE 2 % 1 PACK (2 CLOTHS) TOP SCH (04:00)
[2017-04-15 04:34] LABS: AUTOMATED NEUTROPHIL # 7.8 TH/MM3 (1.8-7.7); HEMATOCRIT 40.4 % (35.0-46.0); HEMO FLAGS DIFF FINAL; LYMPH % 1.8 % (9.0-44.0); LYMPHOCYTE # 0.1 TH/MM3 (1.0-4.8); MEAN CELL VOLUME 96.7 FL (80.0-100.0); MEAN CORPUSCULAR HEMOGLOBIN 32.3 PG (27.0-34.0); MEAN CORPUSCULAR HGB CONC 33.4 % (32.0-36.0); MONO % 4.4 % (0.0-8.0); NEUT % 93.8 % (16.0-70.0); PLATELET COUNT 292 TH/MM3 (150-450); RED BLOOD COUNT 4.18 MIL/MM3 (4.00-5.30); WHITE BLOOD COUNT 8.4 TH/MM3 (4.0-11.0)
[2017-04-15 04:49] LABS: ALKALINE PHOSPHATASE 74 U/L (45-117); TOTAL BILIRUBIN ADULT 0.4 MG/DL (0.2-1.0)
[2017-04-15 04:57] LABS: ALT (GPT) 35 U/L (10-53); ANION GAP 9 MEQ/L (5-15); AST (GOT) 34 U/L (15-37); BICARBONATE 30.6 MEQ/L (21.0-32.0); BLOOD UREA NITROGEN 44 MG/DL (7-18); CHLORIDE 106 MEQ/L (98-107); GLOMERULAR FILTRATION RATE 35 ML/MIN (>89); MAGNESIUM 2.5 MG/DL (1.5-2.5); POTASSIUM 3.9 MEQ/L (3.5-5.1); SODIUM (NA) 146 MEQ/L (136-145)
[2017-04-15] MEDS: methylPREDNISolone SOD SUCC 40 MG/1 ML VIAL IV PUSH SCH ×3 (06:02→22:00)
[2017-04-15] MEDS: FAMOTIDINE 20 MG/2 ML VIAL IV PUSH SCH ×2 (09:00→21:00)
[2017-04-15] MEDS: BUDESONIDE-FORMOTEROL 160/4.5 MCG INHALER INH SCH (09:00)
[2017-04-15] MEDS: HEPARIN SODIUM - SQ 10,000 UNITS/ML VIAL SQ SCH ×2 (09:20→21:00)
[2017-04-15] MEDS: ASPIRIN 81 MG CHEW TAB CHEW SCH (09:21)
[2017-04-15] MEDS: DOCUSATE SODIUM 50 MG/SENNA 8.6 MG TAB PO SCH ×2 (09:21→21:00)
[2017-04-15] MEDS: SODIUM CHLORIDE 0.9% FLUSH 10 ML FLUSH IV FLUSH SCH ×2 (09:40→21:00)
[2017-04-15] MEDS: SODIUM CHLORIDE 0.9% FLUSH 10 ML FLUSH IV FLUSH PRN (09:40)
--- NOTE | 2017-04-15 17:44 | HHI.CCPN ---
Subjective Remarks/Hospital Course The patient is a 81-year-old female with a past medical history of COPD, coronary artery disease, hypertension, gastroesophageal reflux disease, peptic ulcer disease who presented to [facility] ED with a one-day history of worsening shortness of breath. She denies any use of home oxygen and was placed on Ceftin and tapered dose of prednisone since last by her outpatient skiver blockers, Dr. Alarcon. There is no history of any associated symptoms of chest pain, orthopnea, PND or edema of lower extremities. On arrival to the ED the patient was hypertensive and tachycardiac with heart rate of one 130s to 150s. Her initial chest x-ray on arrival showed COPD changes, atelectasis in the right lower lobe. The patient was initially tried on BiPap without any improvements in her respiratory status. She was initially admitted to the hospitalist service. However, in the ED the patient was intubated and placed on mechanical ventilation for respiratory failure. Chest x-ray post- intubation showed ET tube above the jesus, right basilar atelectasis. She was given Solu-Medrol 125 mg IV push in the ED along with aspirin, bronchodilator and potassium supplement. There is no history of any prior intubation for her COPD. In addition, no history of any cough or constitutional symptoms. 04/12 Patient remains sedated with Diprivan, Fentanyl and intubated. Started on Heparin drip last night for elevated trop. Renal function worse with Cr: 1.58 from 1.01 and K 6.3 04/13 No events overnight. Remains intubated and sedated, On Heparin drip. Afebrile. 04/14 Patient was extubated yesterday placed on BIPAP overnight 04/04 with 35% FIO2. Lasix 60mg x1 given. Off Heparin drip. 04/15: doing well. denies complaints. on nc o2 all day and overnight. ROS negative. Objective Vital Signs Date Time Temp Pulse Resp B/P (MAP) Pulse Ox O2 Delivery O2 Flow Rate FiO2 04/15/17 09:12 100 Nasal Cannula 2.00 04/15/17 06:00 99 04/15/17 04:00 98.0 20 161/86 (111) 04/14/17 04:53 50 Intake and Output 04/15/17 04/15/17 04/16/17 08:00 16:00 00:00 Intake Total 50 ml Output Total 400 ml Balance -350 ml Result Diagram: 04/15/17 0331 04/15/17 0331 Imaging Last Impressions Chest X-Ray 04/13/17 0600 Signed Impressions: Service Date/Time: March 04:32 - CONCLUSION: The lungs are clear. Brandon Garcia MD Objective Remarks GENERAL: frail elderly female, lying in bed on nc o2. SKIN: Warm and dry. HEAD: Normocephalic. EYES: No scleral icterus. No injection or drainage. NECK: trachea midline. No JVD. CARDIOVASCULAR: slightly tachycardic rate, regular rhythm. HR in 100s. RESPIRATORY: unlabored. equal chest rise. nc o2. GASTROINTESTINAL: Abdomen soft, non-tender, nondistended. MUSCULOSKELETAL: No cyanosis, or edema. Neuro: Awake. alert. RASS 0. follows commands. A/P Assessment and Plan Assessment: 81yF with type II demand ischemia and COPD exacerbation. clinically improving. stable for transfer out of ICU. 1. Resp Insuff Extubated 04/13 2. COPD exacerbation. 3. Hypertension. 4. LIO. 5.NSTEMI 6. History CAD with previous stent placements. 7. GERD 8. Peptic ulcer disease. Plan Neuro: Awake, alert. Monitor neuro status and avoid sedatives Pulm: Continue with oxygen and maintain sats >90%. Bronchodilators, Solu-Medrol 40 mg IV q. 6. nc o2 as tolerated. CV: Monitor HR and BP and maintain MAP>65 mmHg. Continue Aspirin 81 mg daily, Cardizem 30 mg q. Echo from March 2016 showed an EF of 60-65%. Cards is following- Dr. Ontiveros. Elevated trop likely demand mediated. Echo showed EF: 45-50%. Distal anteroseptal and apical hypokinesis. : Monitor renal function I's and O's and electrolyte replacement per protocol. avoid nephrotoxins redose lasix 60mg iv x 1. Follow up on BMP. GI: On Pepcid 20 mg IV q. 12 for GI prophylaxis. slowly advance diet. ID: Continue with abx( Zosyn, Azithromycin) for COPD exacerbation and monitor for signs of infections(fever and WBC). Heme: Monitor CBC, Endo: SSI with Accu-Cheks for glycemic control GI prophylaxis with Pepcid DVT prophylaxis with SCDs and heparin subcu. Follow up on labs Dispo: stable for transfer to floor. Israel Labyo MD Apr 15, 2017 17:44
[2017-04-15] MEDS ORDERED: FUROSEMIDE 40 MG/4 ML VIAL IV PUSH ONE (18:00)
[2017-04-15] MEDS: DILTIAZEM HCL 60 MG TAB PO SCH (19:04)
[2017-04-15] MEDS: AZITHROMYCIN INJ 500 MG in SODIUM CHLOR 0.9% 250 ML INJ 250 ML IV SCH (19:05)
[2017-04-16] VITALS (19 sets, daily range): BP systolic 127–165; BP diastolic 75–83; PULSE 63–101; RESP 16–26; TEMP 97.4–98.7; O2SAT 95–99
[2017-04-16] MEDS: BUDESONIDE-FORMOTEROL 160/4.5 MCG INHALER INH SCH ×3 (00:17→20:24)
[2017-04-16] MEDS: DILTIAZEM HCL 60 MG TAB PO SCH ×4 (00:18→18:26)
[2017-04-16] MEDS: INSULIN NovoLIN REGULAR SUPPLEMENTAL SCALE SQ SCH ×6 (02:00→20:51)
[2017-04-16] MEDS: PIPERACIL-TAZO 2.25 GM PREMIX 50 ML IV SCH ×4 (02:41→20:21)
[2017-04-16] MEDS: RESP: IPRATROPIUM 0.5 MG/2.5 ML NEB NEB SCH ×4 (03:16→21:56)
[2017-04-16] MEDS: CHLORHEXIDINE GLUCONATE 2 % 1 PACK (2 CLOTHS) TOP SCH (04:00)
[2017-04-16 04:12] LABS: HEMATOCRIT 38.8 % (35.0-46.0); MEAN CELL VOLUME 95.7 FL (80.0-100.0); MEAN CORPUSCULAR HEMOGLOBIN 32.4 PG (27.0-34.0); MEAN CORPUSCULAR HGB CONC 33.8 % (32.0-36.0); PLATELET COUNT 311 TH/MM3 (150-450); RED BLOOD COUNT 4.06 MIL/MM3 (4.00-5.30); RED CELL DISTRIBUTION WIDTH 13.8 % (11.6-17.2); REVIEW FLAG FINAL; WHITE BLOOD COUNT 7.9 TH/MM3 (4.0-11.0)
[2017-04-16 04:25] LABS: BICARBONATE 37.5 MEQ/L (21.0-32.0); POTASSIUM 3.2 MEQ/L (3.5-5.1)
[2017-04-16] MEDS: methylPREDNISolone SOD SUCC 40 MG/1 ML VIAL IV PUSH SCH ×2 (06:14→20:20)
[2017-04-16] MEDS: DOCUSATE SODIUM 50 MG/SENNA 8.6 MG TAB PO SCH ×2 (09:00→20:20)
[2017-04-16] MEDS: SODIUM CHLORIDE 0.9% FLUSH 10 ML FLUSH IV FLUSH SCH ×2 (09:20→20:21)
[2017-04-16] MEDS: SODIUM CHLORIDE 0.9% FLUSH 10 ML FLUSH IV FLUSH PRN (09:20)
[2017-04-16] MEDS: ASPIRIN 81 MG CHEW TAB CHEW SCH (09:20)
[2017-04-16] MEDS: FAMOTIDINE 20 MG/2 ML VIAL IV PUSH SCH ×2 (09:20→20:20)
[2017-04-16] MEDS: HEPARIN SODIUM - SQ 10,000 UNITS/ML VIAL SQ SCH ×2 (09:23→20:20)
--- NOTE | 2017-04-16 14:53 | HHI.CCPN ---
Subjective Remarks/Hospital Course The patient is a 81-year-old female with a past medical history of COPD, coronary artery disease, hypertension, gastroesophageal reflux disease, peptic ulcer disease who presented to [facility] ED with a one-day history of worsening shortness of breath. She denies any use of home oxygen and was placed on Ceftin and tapered dose of prednisone since last by her outpatient environmental law professor, Dr. Alarcon. There is no history of any associated symptoms of chest pain, orthopnea, PND or edema of lower extremities. On arrival to the ED the patient was hypertensive and tachycardiac with heart rate of one 130s to 150s. Her initial chest x-ray on arrival showed COPD changes, atelectasis in the right lower lobe. The patient was initially tried on BiPap without any improvements in her respiratory status. She was initially admitted to the hospitalist service. However, in the ED the patient was intubated and placed on mechanical ventilation for respiratory failure. Chest x-ray post- intubation showed ET tube above the jesus, right basilar atelectasis. She was given Solu-Medrol 125 mg IV push in the ED along with aspirin, bronchodilator and potassium supplement. There is no history of any prior intubation for her COPD. In addition, no history of any cough or constitutional symptoms. 04/12 Patient remains sedated with Diprivan, Fentanyl and intubated. Started on Heparin drip last night for elevated trop. Renal function worse with Cr: 1.58 from 1.01 and K 6.3 04/13 No events overnight. Remains intubated and sedated, On Heparin drip. Afebrile. 04/14 Patient was extubated yesterday placed on BIPAP overnight 04/04 with 35% FIO2. Lasix 60mg x1 given. Off Heparin drip. 04/15: doing well. denies complaints. on nc o2 all day and overnight. ROS negative. 04/16: continues to improve. on room air. ROS negative. needs cards re-eval now that she is extubated and improving. Objective Vital Signs Date Time Temp Pulse Resp B/P (MAP) Pulse Ox O2 Delivery O2 Flow Rate FiO2 04/16/17 12:00 73 04/16/17 12:00 98.3 144/79 (100) 04/16/17 08:00 26 96 04/16/17 07:52 Nasal Cannula 2.00 04/14/17 04:53 50 Intake and Output 04/16/17 04/16/17 04/17/17 08:00 16:00 00:00 Intake Total 300 ml 50 ml Output Total 2150 ml Balance -1850 ml 50 ml Result Diagram: 04/16/17 0323 04/16/17 0323 Imaging Last Impressions Chest X-Ray 04/13/17 0600 Signed Impressions: Service Date/Time: March 04:32 - CONCLUSION: The lungs are clear. Brandon Garcia MD Objective Remarks GENERAL: frail elderly female, lying in bed on room air SKIN: Warm and dry. HEAD: Normocephalic. EYES: No scleral icterus. No injection or drainage. NECK: trachea midline. No JVD. CARDIOVASCULAR: slightly tachycardic rate, regular rhythm. HR in 100s. RESPIRATORY: unlabored. equal chest rise. room air. GASTROINTESTINAL: Abdomen soft, non-tender, nondistended. MUSCULOSKELETAL: No cyanosis, or edema. Neuro: Awake. alert. RASS 0. follows commands. A/P Assessment and Plan Assessment: 81yF with type II demand ischemia and COPD exacerbation. clinically improving. stable for transfer out of ICU. transfer to hospitalist service. 1. Resp Insuff - resolved. Extubated 04/13 2. COPD exacerbation. - improving. 3. Hypertension. 4. LIO. 5.NSTEMI 6. History CAD with previous stent placements. 7. GERD 8. Peptic ulcer disease. Plan Neuro: Awake, alert. Monitor neuro status and avoid sedatives Pulm: Continue with oxygen and maintain sats >90%. Bronchodilators, Solu-Medrol 40 mg IV q. 6. nc o2 as tolerated. CV: Monitor HR and BP and maintain MAP>65 mmHg. Continue Aspirin 81 mg daily, Cardizem 30 mg q. Echo from March 2016 showed an EF of 60-65%. Cards is following- Dr. Ontiveros. Elevated trop likely demand mediated. Echo showed EF: 45-50%. Distal anteroseptal and apical hypokinesis. : Monitor renal function I's and O's and electrolyte replacement per protocol. avoid nephrotoxins Follow up on BMP. GI: On Pepcid 20 mg IV q. 12 for GI prophylaxis. heart healthy diet. ID: Continue with abx( Zosyn, Azithromycin) for COPD exacerbation and monitor for signs of infections(fever and WBC). Heme: Monitor CBC, Endo: SSI with Accu-Cheks for glycemic control GI prophylaxis with Pepcid DVT prophylaxis with SCDs and heparin subcu. Follow up on labs Dispo: stable for transfer to floor. Israel Laboy MD Apr 16, 2017 14:53
[2017-04-16] MEDS: AZITHROMYCIN INJ 500 MG in SODIUM CHLOR 0.9% 250 ML INJ 250 ML IV SCH (18:26)
[2017-04-17] VITALS (27 sets, daily range): BP systolic 142–164; BP diastolic 76–93; PULSE 63–112; RESP 16–19; TEMP 97.4–98.7; O2SAT 93–100
[2017-04-17] MEDS: DILTIAZEM HCL 60 MG TAB PO SCH ×5 (00:02→23:48)
[2017-04-17] MEDS: PIPERACIL-TAZO 2.25 GM PREMIX 50 ML IV SCH ×2 (01:16→09:15)
[2017-04-17] MEDS: INSULIN NovoLIN REGULAR SUPPLEMENTAL SCALE SQ SCH ×2 (02:00→05:24)
[2017-04-17] MEDS: CHLORHEXIDINE GLUCONATE 2 % 1 PACK (2 CLOTHS) TOP SCH (03:11)
[2017-04-17] MEDS: RESP: IPRATROPIUM 0.5 MG/2.5 ML NEB NEB SCH ×4 (03:37→21:12)
[2017-04-17 05:30] LABS: MEAN CELL VOLUME 95.7 FL (80.0-100.0); MEAN CORPUSCULAR HEMOGLOBIN 32.8 PG (27.0-34.0); MEAN CORPUSCULAR HGB CONC 34.3 % (32.0-36.0); PLATELET COUNT 268 TH/MM3 (150-450); RED BLOOD COUNT 3.97 MIL/MM3 (4.00-5.30); RED CELL DISTRIBUTION WIDTH 14.1 % (11.6-17.2); REVIEW FLAG FINAL; WHITE BLOOD COUNT 7.5 TH/MM3 (4.0-11.0)
[2017-04-17 05:53] LABS: BICARBONATE 36.1 MEQ/L (21.0-32.0); POTASSIUM 3.6 MEQ/L (3.5-5.1)
--- NOTE | 2017-04-17 08:49 | PD.CARD.PN ---
Subjective Subjective Remarks Sedated on vent. Objective Medications Current Medications Medications (Trade) Dose Ordered Sig/Michael Route Start Time Stop Time Status Last Admin (NS Flush) 2 ml UNSCH PRN IV FLUSH 04/11/17 10:15 04/16/17 09:20 (NS Flush) 2 ml BID IV FLUSH 04/11/17 21:00 04/16/17 20:21 (Narcan Inj) 0.4 mg UNSCH PRN IV PUSH 04/11/17 10:15 (Atrovent Neb) 0.5 mg Q6HR NEB NEB 04/11/17 16:00 04/17/17 03:37 (Atrovent Neb) 0.5 mg Q2HR NEB PRN NEB 04/11/17 14:30 Miscellaneous Information 1 Q361D XX 04/11/17 12:15 (Chlorhexidine 2% Cloth) Taper DAILY@04 TOP 04/12/17 04:00 04/08/18 03:59 04/16/17 04:00 (Chlorhexidine 2% Cloth) 3 pack UNSCH PRN TOP 04/11/17 12:15 (Anai-Colace) 1 tab BID PO 04/11/17 21:00 04/16/17 20:20 (Senokot) 17.2 mg Q12H PRN PO 04/11/17 12:15 (Dulcolax Supp) 10 mg DAILY PRN RECTAL 04/11/17 12:15 (Lactulose Liq) 30 ml DAILY PRN PO 04/11/17 12:15 (Aspirin Chew) 81 mg DAILY CHEW 04/12/17 09:00 04/16/17 09:20 (D50w (Vial) Inj) 50 ml UNSCH PRN IV PUSH 04/11/17 13:30 (Glucagon Inj) 1 mg UNSCH PRN OTHER 04/11/17 13:30 (NovoLIN R SUPPLEMENTAL SCALE) 1 Q4H SQ 04/11/17 14:00 04/16/17 20:51 (Symbicort 160-4.5 Mcg Inh) 2 puff Q12HR INH 04/11/17 21:00 04/16/17 20:24 Azithromycin 500 mg/Sodium Chloride 250 ml @ 250 mls/hr Q24H IV 04/11/17 17:45 04/16/17 18:26 Piperacillin Sod/ Tazobactam Sod 50 ml @ 100 mls/hr Q6H IV 04/12/17 20:00 04/17/17 01:16 (Pepcid Inj) 10 mg Q12HR IV PUSH 04/13/17 21:00 04/16/17 20:20 (Heparin Inj) 5,000 units Q12HR SQ 04/14/17 09:00 04/16/17 20:20 (Cardizem) 60 mg Q6HR PO 04/15/17 18:00 04/17/17 05:14 (SoluMEDROL INJ) 40 mg BID IV PUSH 04/16/17 21:00 04/16/17 20:20 Vital Signs / I&O Vital Signs Date Time Temp Pulse Resp B/P (MAP) Pulse Ox O2 Delivery O2 Flow Rate FiO2 04/17/17 06:00 69 04/17/17 05:00 63 04/17/17 04:00 78 04/17/17 04:00 98.0 78 18 150/81 (104) 99 04/17/17 03:40 100 Nasal Cannula 2.00 04/17/17 03:00 69 04/17/17 02:00 65 04/17/17 01:00 63 04/17/17 00:00 65 04/17/17 00:00 98.1 65 18 153/83 (106) 98 04/16/17 23:00 63 04/16/17 22:00 70 04/16/17 21:57 99 21 04/16/17 21:00 69 04/16/17 20:00 98.3 76 18 135/75 (95) 99 04/16/17 20:00 72 04/16/17 18:00 82 04/16/17 17:00 72 04/16/17 16:00 72 04/16/17 16:00 97.4 72 18 127/78 (94) 95 04/16/17 15:00 72 04/16/17 14:00 78 04/16/17 13:30 80 16 134/77 (96) 99 04/16/17 12:00 73 04/16/17 12:00 98.3 74 144/79 (100) 04/16/17 10:00 80 I/O 04/16/17 04/16/17 04/16/17 04/17/17 04/17/17 04/17/17 07:00 15:00 23:00 07:00 15:00 23:00 Intake Total 350 ml 240 ml Output Total 2150 ml 900 ml Balance -2150 ml 350 ml -660 ml Intake Oral 240 ml IV Total 350 ml Output Urine Total 2150 ml 900 ml # Bowel Movements 2 Physical Exam decreased breath sounds Laboratory Laboratory Tests Test 04/17/17 05:09 White Blood Count 7.5 TH/MM3 Red Blood Count 3.97 MIL/MM3 Hemoglobin 13.1 GM/DL Hematocrit 38.0 % Mean Corpuscular Volume 95.7 FL Mean Corpuscular Hemoglobin 32.8 PG Mean Corpuscular Hemoglobin Concent 34.3 % Red Cell Distribution Width 14.1 % Platelet Count 268 TH/MM3 Mean Platelet Volume 9.1 FL Blood Urea Nitrogen 32 MG/DL Creatinine 1.17 MG/DL Random Glucose 166 MG/DL Calcium Level 8.0 MG/DL Sodium Level 144 MEQ/L Potassium Level 3.6 MEQ/L Chloride Level 102 MEQ/L Carbon Dioxide Level 36.1 MEQ/L Anion Gap 6 MEQ/L Estimat Glomerular Filtration Rate 45 ML/MIN Assessment and Plan Problem List: (1) Coronary artery disease ICD Codes: I25.10 - Atherosclerotic heart disease of [place] coronary artery without angina pectoris Status: Acute Plan: Feel elevated troponin secondary to demand. Will get lexiscan this morning (2) COPD (chronic obstructive pulmonary disease) ICD Codes: J44.9 - Chronic obstructive pulmonary disease, unspecified Status: Acute (3) Acute respiratory failure ICD Codes: J96.00 - Acute respiratory failure, unspecified whether with hypoxia or hypercapnia Status: Acute (4) Elevated troponin ICD Codes: R74.8 - Abnormal levels of other serum enzymes Status: Acute Assessment and Plan Troponin elevation likely demand mediated. ECG unchanged. Continue supportive care Gregory Ontiveros MD Apr 17, 2017 08:49
[2017-04-17] MEDS: SODIUM CHLORIDE 0.9% FLUSH 10 ML FLUSH IV FLUSH SCH ×2 (09:00→21:00)
[2017-04-17] MEDS: DOCUSATE SODIUM 50 MG/SENNA 8.6 MG TAB PO SCH ×2 (09:00→21:00)
[2017-04-17] MEDS: methylPREDNISolone SOD SUCC 40 MG/1 ML VIAL IV PUSH SCH (09:15)
[2017-04-17] MEDS: ASPIRIN 81 MG CHEW TAB CHEW SCH (09:16)
[2017-04-17] MEDS: FAMOTIDINE 20 MG/2 ML VIAL IV PUSH SCH (09:16)
[2017-04-17] MEDS: HEPARIN SODIUM - SQ 10,000 UNITS/ML VIAL SQ SCH ×2 (09:16→21:35)
[2017-04-17] MEDS: BUDESONIDE-FORMOTEROL 160/4.5 MCG INHALER INH SCH ×2 (09:17→21:35)
[2017-04-17] MEDS ORDERED: REGADENOSON INJ 0.4 MG/5 ML SYR ONE (10:19)
--- NOTE | 2017-04-17 13:18 | RADRPT ---
EXAM DATE/TIME: 04/17/2017 10:40 [place] COMPARISON: No previous studies available for comparison. INDICATIONS : Coronary artery disease. DOSE: 27.2 mCi Tc99m Myoview at stress. 8.1 mCi Tc99m Myoview at rest. 0.4 mg Lexiscan STRESS SYMPTOMS: Chest pain. EJECTION FRACTION: 40% MEDICAL HISTORY : Hypertension. Chronic obstructive pulmonary disease. Hyperparathyroidism. SURGICAL HISTORY : Coronary artery stent. Hysterectomy. Cholecystectomy. ENCOUNTER: Initial ACUITY: 1 day PAIN SCALE: 2/10 LOCATION: Bilateral chest TECHNIQUE: The patient underwent pharmacologic stress with infusion of prescribed dose. Continuous ECG tracing was monitored during stress. Gated SPECT imaging was performed after stress and conventional SPECT i maging was performed at rest. The examination was performed on a SPECT/CT scanner, both attenuation and non-corrected datasets were reviewed. FINDINGS: DISTRIBUTION: The maximum perfused segment at stress is in the inferior wall. PERFUSION STUDY: Fixed apical wall defect. The pattern of perfusion at stress is within normal limits. GATED STUDY: Diffuse hypokinesia with focal hypokinesia in the apical septal wall. CONCLUSION: 1. Findings consistent with apical wall infarct. No evidence for focal stress induced defect to sugge st ischemia. 2. Generalized hypokinesia with more pronounced wall motion abnormality in the apical septal wall and reduced EF of 40%. RISK CATEGORY: Intermediate (1-3% Annual Mortality Rate) Hernan Gillespie MD on April 17, 2017 at 13:01 Board Certified Radiologist. This report was verified electronically.
--- NOTE | 2017-04-17 14:36 | HHI.PR ---
Subjective Remarks Patient feels fatigued after returning from stress test. Breathing at baseline - on RA. she does not wear O2 at home. Symptoms had started with upepr resp infection. wants to eat regular consistency diet, ST to see again today. d/w daughter at bedside. Objective Vitals Vital Signs Date Time Temp Pulse Resp B/P (MAP) Pulse Ox O2 Delivery O2 Flow Rate FiO2 04/17/17 13:12 108 04/17/17 12:33 98.2 112 16 161/90 (113) 100 04/17/17 09:00 86 04/17/17 08:58 98.2 88 16 164/93 (116) 100 04/17/17 08:00 78 04/17/17 07:00 68 04/17/17 06:00 69 04/17/17 05:00 63 04/17/17 04:00 78 04/17/17 04:00 98.0 78 18 150/81 (104) 99 04/17/17 03:40 100 Nasal Cannula 2.00 04/17/17 03:00 69 04/17/17 02:00 65 04/17/17 01:00 63 04/17/17 00:00 65 04/17/17 00:00 98.1 65 18 153/83 (106) 98 04/16/17 23:00 63 04/16/17 22:00 70 04/16/17 21:57 99 21 04/16/17 21:00 69 04/16/17 20:00 98.3 76 18 135/75 (95) 99 04/16/17 20:00 72 04/16/17 18:00 82 04/16/17 17:00 72 04/16/17 16:00 72 04/16/17 16:00 97.4 72 18 127/78 (94) 95 04/16/17 15:00 72 I/O 04/16/17 04/16/17 04/16/17 04/17/17 04/17/17 04/17/17 07:00 15:00 23:00 07:00 15:00 23:00 Intake Total 350 ml 240 ml Output Total 2150 ml 900 ml Balance -2150 ml 350 ml -660 ml Intake Oral 240 ml IV Total 350 ml Output Urine Total 2150 ml 900 ml # Bowel Movements 2 Result Diagram: 04/17/17 0509 04/17/17 0509 Objective Remarks GENERAL: Pleasant petite elderly CF patient. SKIN: Warm and dry. HEAD: Normocephalic. EYES: No scleral icterus. No injection or drainage. NECK: Supple, trachea midline. No JVD or lymphadenopathy. CARDIOVASCULAR: Regular rate and rhythm without murmurs, gallops, or rubs. RESPIRATORY: Breath sounds equal bilaterally. Exp wheezing b/l. No accessory muscle use. GASTROINTESTINAL: Abdomen soft, non-tender, nondistended. EXTREMITIES: No cyanosis, or edema. NEUROLOGICAL: Awake, alert, and oriented x 3. Non-focal. A/P Assessment and Plan -Acute resp failure due to COPD exacerbation, Extubated 04/13 - on room air today -Continue Solu-Medrol IV and consider to taper to by mouth prednisone tomorrow Continue breathing treatments Not on home O2 on abx zosyn, zithromax empirically cxr 04/13 -clear DC zosyn continue zithromax -LIO - improving - cr 1.16 today -Elevated troponin - History CAD with previous stent placements. possible type 2 demand ischemia - lexiscan stress test with apical infarct, hypokinesis, EF 40 %, no reversible defects to suggest ischemic. -cardiology following/Dr. Ontiveros -cont asa, cardizem -pt has allergy to beta blockers and plavix -further recs as per cardiology - Hypertension. BP elevated today. -cont cardizem -wean steroids -GERD/Peptic ulcer disease. -DC IV pepcid change to protonix DVT prophylaxis with SCDs and heparin subcu. Clarice Fields MD Apr 17, 2017 14:36
[2017-04-17] MEDS: AZITHROMYCIN INJ 500 MG in SODIUM CHLOR 0.9% 250 ML INJ 250 ML IV SCH (17:51)
--- NOTE | 2017-04-17 19:21 | HHI.PR ---
Subjective Remarks Still on a N/C 4 L. Seems better but had an episode of dyspnea last PM. .. Alert and mildly SOB. Objective Vital Signs Date Time Temp Pulse Resp B/P (MAP) Pulse Ox O2 Delivery O2 Flow Rate FiO2 04/17/17 17:07 88 04/17/17 16:00 82 04/17/17 15:51 97.4 84 16 142/76 (98) 93 04/17/17 15:00 86 04/17/17 14:00 100 04/17/17 13:12 108 04/17/17 12:33 98.2 112 16 161/90 (113) 100 04/17/17 09:00 86 04/17/17 08:58 98.2 88 16 164/93 (116) 100 04/17/17 08:00 78 04/17/17 07:00 68 04/17/17 06:00 69 04/17/17 05:00 63 04/17/17 04:00 78 04/17/17 04:00 98.0 78 18 150/81 (104) 99 04/17/17 03:40 100 Nasal Cannula 2.00 04/17/17 03:00 69 04/17/17 02:00 65 04/17/17 01:00 63 04/17/17 00:00 65 04/17/17 00:00 98.1 65 18 153/83 (106) 98 04/16/17 23:00 63 04/16/17 22:00 70 04/16/17 21:57 99 21 04/16/17 21:00 69 04/16/17 20:00 98.3 76 18 135/75 (95) 99 04/16/17 20:00 72 I/O 04/16/17 04/16/17 04/16/17 04/17/17 04/17/17 04/17/17 07:00 15:00 23:00 07:00 15:00 23:00 Intake Total 350 ml 240 ml 900 ml Output Total 2150 ml 900 ml 500 ml Balance -2150 ml 350 ml -660 ml 400 ml Intake Oral 240 ml 900 ml IV Total 350 ml Output Urine Total 2150 ml 900 ml 500 ml # Bowel Movements 2 3 Result Diagram: 04/17/17 0509 04/17/17 0509 Objective Remarks GENERAL: This is an averagely built elderly lady who is alert, Oriented. HEENT: The head normocephalic. Pupils are reactive. Sclerae were clear. Nasal mucosa edematous. Ears no inflammation. NECK: Supple. No lymphadenopathy. There is no venous distension. Trachea midline. No thyromegaly. CHEST: Equal movements with an increased AP diameter with bilateral expiratory wheezes. No Crackles. HEART: Sounds are regular S1, S2 and tachycardic with no murmur. ABDOMEN: Soft, nontender. No organomegaly. Bowel sounds are active. EXTREMITIES: No lesions or edema. Peripheral pulses are diminished. NEUROLOGIC: Reflexes are 1+. Babinski negative. SKIN: No lesions were observed. Assessment and Plan Assessment and Plan IMPRESSION 1. Hypercapnic respiratory failure. 2. 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 History of hypertension 4. History of coronary artery disease with stenting 5. History of peptic ulcer disease. Plan : 1. Wean O2 to 2 L 2. D/C BIPAP at HS 3. Cont Antibiotics for 1 week 4. Prednisone 20 mg bid 5. D/C Solumedrol 6. Nebs q6h with duoneb. 7. Symbicort 160/4.5 mcg , 2 puffs bid 8. Up with help Lincoln Martínez MD Apr 17, 2017 19:21
[2017-04-17] MEDS: predniSONE 20 MG TAB PO SCH (21:35)
[2017-04-18] VITALS (28 sets, daily range): BP systolic 141–182; BP diastolic 60–96; PULSE 63–96; RESP 16–20; TEMP 97.6–98.5; O2SAT 93–96
[2017-04-18] MEDS: RESP: IPRATROPIUM 0.5 MG/2.5 ML NEB NEB SCH ×4 (03:20→21:23)
[2017-04-18] MEDS: CHLORHEXIDINE GLUCONATE 2 % 1 PACK (2 CLOTHS) TOP SCH (03:48)
[2017-04-18] MEDS: DILTIAZEM HCL 60 MG TAB PO SCH ×4 (05:29→23:38)
[2017-04-18] MEDS: DOCUSATE SODIUM 50 MG/SENNA 8.6 MG TAB PO SCH ×2 (08:53→20:46)
[2017-04-18] MEDS: PANTOPRAZOLE SOD 20 MG DELAYED RELEASE TAB PO SCH (08:53)
[2017-04-18] MEDS: HEPARIN SODIUM - SQ 10,000 UNITS/ML VIAL SQ SCH ×2 (08:53→20:48)
[2017-04-18] MEDS: predniSONE 20 MG TAB PO SCH ×2 (08:53→20:45)
[2017-04-18] MEDS: ASPIRIN 81 MG CHEW TAB CHEW SCH (08:53)
[2017-04-18] MEDS: SODIUM CHLORIDE 0.9% FLUSH 10 ML FLUSH IV FLUSH SCH ×2 (09:00→20:49)
[2017-04-18] MEDS: BUDESONIDE-FORMOTEROL 160/4.5 MCG INHALER INH SCH ×2 (09:00→20:47)
[2017-04-18 13:56] LABS: BICARBONATE 30.4 MEQ/L (21.0-32.0); POTASSIUM 3.4 MEQ/L (3.5-5.1)
[2017-04-18 13:59] LABS: HEMATOCRIT 39.7 % (35.0-46.0); MEAN CELL VOLUME 95.1 FL (80.0-100.0); MEAN CORPUSCULAR HEMOGLOBIN 33.9 PG (27.0-34.0); MEAN CORPUSCULAR HGB CONC 35.7 % (32.0-36.0); PLATELET COUNT 356 TH/MM3 (150-450); RED BLOOD COUNT 4.18 MIL/MM3 (4.00-5.30); RED CELL DISTRIBUTION WIDTH 13.7 % (11.6-17.2); REVIEW FLAG FINAL; WHITE BLOOD COUNT 16.6 TH/MM3 (4.0-11.0)
--- NOTE | 2017-04-18 17:13 | HHI.PR ---
Subjective Remarks Overnight events discussed w rn - no major overnight events. BP noted to be very elevated in the 180's Denies cp/sob much improved down to 2 liters nasal canula Objective Vitals Vital Signs Date Time Temp Pulse Resp B/P (MAP) Pulse Ox O2 Delivery O2 Flow Rate FiO2 04/18/17 15:30 98.5 87 16 182/96 (124) 94 04/18/17 13:13 86 04/18/17 12:52 90 04/18/17 11:04 98.5 84 16 180/94 (122) 94 04/18/17 11:00 88 04/18/17 10:00 80 04/18/17 09:00 82 04/18/17 08:38 98.1 80 16 151/85 (107) 95 04/18/17 08:04 93 21 04/18/17 08:00 80 04/18/17 07:00 67 04/18/17 06:25 67 04/18/17 05:30 70 04/18/17 04:50 63 04/18/17 03:40 98.1 72 17 141/60 (87) 96 04/18/17 03:40 69 04/18/17 03:22 96 Nasal Cannula 2.00 04/18/17 02:30 68 04/18/17 01:30 72 04/18/17 00:00 80 04/17/17 23:45 98.4 80 19 144/76 (98) 99 04/17/17 23:40 68 04/17/17 22:00 72 04/17/17 21:12 100 Nasal Cannula 2.00 04/17/17 21:00 72 04/17/17 20:00 90 04/17/17 19:45 98.7 97 17 163/90 (114) 98 04/17/17 19:45 86 04/17/17 18:00 94 I/O 04/17/17 04/17/17 04/17/17 04/18/17 04/18/17 04/18/17 07:00 15:00 23:00 07:00 15:00 23:00 Intake Total 240 ml 1200 ml 480 ml Output Total 900 ml 500 ml 425 ml Balance -660 ml 700 ml 55 ml Intake Oral 240 ml 900 ml 480 ml IV Total 300 ml Output Urine Total 900 ml 500 ml 425 ml # Bowel Movements 2 3 1 Result Diagram: 04/18/17 1316 04/18/17 1317 Imaging Last Impressions Myocardial Perfusion Scan Nuc Med 04/17/17 0000 Signed Impressions: Service Date/Time: Monday, April 17, 2017 10:40 - CONCLUSION: 1. Findings consistent with apical wall infarct. No evidence for focal stress induced defect to suggest ischemia. 2. Generalized hypokinesia with more pronounced wall motion abnormality in the apical septal wall and reduced EF of 40%%. RISK CATEGORY: Intermediate (1-3%% Annual Mortality Rate) Hernan Gillespie MD Chest X-Ray 04/13/17 0600 Signed Impressions: Service Date/Time: March 04:32 - CONCLUSION: The lungs are clear. Brandon Garcia MD Objective Remarks GENERAL: Pleasant elderly, not in distress SKIN: Warm and dry. HEAD: Normocephalic. EYES: No scleral icterus. No injection or drainage. NECK: Supple, trachea midline. No JVD or lymphadenopathy. CARDIOVASCULAR: Regular rate and rhythm without murmurs, gallops, or rubs. RESPIRATORY: Breath sounds clear and equal bilaterally. No accessory muscle use. No rhonchi or rales auscultated. GASTROINTESTINAL: Abdomen soft, non-tender, nondistended. EXTREMITIES: No cyanosis, or edema. NEUROLOGICAL: Awake, alert, and oriented x 3. Non-focal. Medications and IVs Current Medications Medications (Trade) Dose Ordered Sig/Michael Route Start Time Stop Time Status Last Admin (NS Flush) 2 ml UNSCH PRN IV FLUSH 04/11/17 10:15 04/16/17 09:20 (NS Flush) 2 ml BID IV FLUSH 04/11/17 21:00 04/19/17 09:00 (Narcan Inj) 0.4 mg UNSCH PRN IV PUSH 04/11/17 10:15 (Atrovent Neb) 0.5 mg Q6HR NEB NEB 04/11/17 16:00 04/19/17 03:39 (Atrovent Neb) 0.5 mg Q2HR NEB PRN NEB 04/11/17 14:30 Miscellaneous Information 1 Q361D XX 04/11/17 12:15 (Chlorhexidine 2% Cloth) Taper DAILY@04 TOP 04/12/17 04:00 04/08/18 03:59 04/16/17 04:00 (Chlorhexidine 2% Cloth) 3 pack UNSCH PRN TOP 04/11/17 12:15 (Anai-Colace) 1 tab BID PO 04/11/17 21:00 04/16/17 20:20 (Senokot) 17.2 mg Q12H PRN PO 04/11/17 12:15 (Dulcolax Supp) 10 mg DAILY PRN RECTAL 04/11/17 12:15 (Lactulose Liq) 30 ml DAILY PRN PO 04/11/17 12:15 (Aspirin Chew) 81 mg DAILY CHEW 04/12/17 09:00 04/19/17 09:31 (Symbicort 160-4.5 Mcg Inh) 2 puff Q12HR INH 04/11/17 21:00 04/19/17 09:31 (Heparin Inj) 5,000 units Q12HR SQ 04/14/17 09:00 04/19/17 09:30 (Cardizem) 60 mg Q6HR PO 04/15/17 18:00 04/19/17 05:41 (Protonix) 20 mg DAILY PO 04/18/17 09:00 04/19/17 09:31 (Deltasone) 20 mg BID PO 04/17/17 21:00 04/19/17 09:31 (Proair Hfa Inh) 2 puff Q4HR PRN INH 04/18/17 17:15 (Premarin) 1.25 mg DAILY PO 04/19/17 09:00 04/19/17 09:31 (Atrovent Neb) 0.5 mg BID NEB NEB 04/18/17 21:00 04/19/17 09:48 (Lactinex) 1 tab Q12HR PO 04/18/17 21:00 04/19/17 09:31 (Cozaar) 100 mg DAILY PO 04/18/17 18:00 04/19/17 09:32 (Mycostatin Cream) 1 applic Q12HR TOPICAL 04/18/17 21:00 04/19/17 09:31 (Zinc Oxide 20% Oint) 1 applic UNSCH PRN TOPICAL 04/18/17 17:15 Patient Own Medication PT OWN MED: (Budesonide Powder ... BID PRN INH 04/18/17 18:00 Future Hold (Oscal-D 250-125) 500 mg DAILY PO 04/19/17 09:00 04/19/17 09:32 (Ceftin) 500 mg Q12HR PO 04/18/17 21:00 04/23/17 20:59 04/19/17 09:32 (Ammon-24) 200 mg DAILY PO 04/19/17 09:00 A/P Assessment and Plan 1. Acute hypercarbic hypoxemic respiratory failure. 2. Respiratory acidosis. 3. Acute COPD exacerbation. The patient was admitted to intensive care unit and cared for by the steam presser. The patient was intubated intubated, treated with IV steroids in the form of IV Solu-Medrol, IV antibiotics. Resume admission showed respiratory acidosis, hypercarbia. The patient was later extubated on 04/13 after respiratory acidosis resolved. The patient is currently on nasal cannula. Initially patient was treated with Zosyn, Zithromax empirically. Chest x-ray on 08/12 clear. Stenosis was discontinued on 04/17 and Zithromax continued. Pulmonary consulted and following the patient. Dr. Pastor discontinued by mouth Zithromax and start the patient on Ceftin. Patient is having some shots of breath on exertion. We'll order respiratory walk test. 4. Hypokalemia. Replaced and monitored during hospital stay. Continue to monitor and replace as needed. Potassium 3.4 today. 5. Hypocalcemia. Status post IV calcium gluconate. Calcium levels now normal. Monitor BMP. 6. Acute kidney injury on chronic kidney disease stage III Upper review of medical records, baseline creatinine is around 1.0-1.1. Creatinine trending down to 1.25 and close to baseline. Continue to monitor BUN/creatinine, avoid nephrotoxins and monitor strict I's and O's. 7. Elevated troponin The patient has history of CAD with previous stent placements. Suspected to be typed to demand ischemia. Lexiscan stress test with apical infarct, hypokinesis, EF of 40% but no reversible defects to suggest ischemic origin. Cardiology following/Dr. Ontiveros -cont asa, cardizem -pt has allergy to beta blockers and plavix -further recs as per cardiology 8. Uncontrolled hypertension Systolic BP severely elevated now 180s. Continue Cardizem and resume patient 's home losartan given that creatinine is not improved. Continue to wean steroids which is likely contributing to the severity and difficult to control hypertension. 9. GERD/Peptic ulcer disease. -Initially and IV Pepcid, changed to Protonix. Seems to be stable. 10. Leukocytosis. Likely due to steroid. Continue to monitor CBC. No signs of active infection. Patient afebrile. DVT prophylaxis with SCDs and heparin subcu. Discharge Planning Possible discharge in a.m. pending respiratory walk test and blood pressure improvement. Efren Lehman MD Apr 18, 2017 17:13
[2017-04-18] MEDS ORDERED: ALENDRONATE SODIUM 70 MG TAB PO SCH (17:15)
[2017-04-18] MEDS ORDERED: ALBUTEROL SULFATE 90 MCG/ACT HFA 8 GM INHALER INH PRN (17:15)
[2017-04-18] MEDS ORDERED: ZINC OXIDE 20% OINT 30 GM TUBE TOPICAL PRN (17:15)
[2017-04-18] MEDS ORDERED: BUDESONIDE 180 MCG INH PRN (18:00)
[2017-04-18] MEDS: LOSARTAN 50 MG TAB PO SCH (18:39)
[2017-04-18] MEDS: AZITHROMYCIN INJ 500 MG in SODIUM CHLOR 0.9% 250 ML INJ 250 ML IV SCH (18:48)
--- NOTE | 2017-04-18 19:35 | HHI.PR ---
Subjective Remarks Off O2 sat 93. Feels better and walked in halls. No SOB at rest. Objective Vital Signs Date Time Temp Pulse Resp B/P (MAP) Pulse Ox O2 Delivery O2 Flow Rate FiO2 04/18/17 18:00 96 04/18/17 17:00 78 04/18/17 16:00 82 04/18/17 15:30 98.5 87 16 182/96 (124) 94 04/18/17 13:13 86 04/18/17 12:52 90 04/18/17 11:04 98.5 84 16 180/94 (122) 94 04/18/17 11:00 88 04/18/17 10:00 80 04/18/17 09:00 82 04/18/17 08:38 98.1 80 16 151/85 (107) 95 04/18/17 08:04 93 21 04/18/17 08:00 80 04/18/17 07:00 67 04/18/17 06:25 67 04/18/17 05:30 70 04/18/17 04:50 63 04/18/17 03:40 98.1 72 17 141/60 (87) 96 04/18/17 03:40 69 04/18/17 03:22 96 Nasal Cannula 2.00 04/18/17 02:30 68 04/18/17 01:30 72 04/18/17 00:00 80 04/17/17 23:45 98.4 80 19 144/76 (98) 99 04/17/17 23:40 68 04/17/17 22:00 72 04/17/17 21:12 100 Nasal Cannula 2.00 04/17/17 21:00 72 04/17/17 20:00 90 04/17/17 19:45 98.7 97 17 163/90 (114) 98 04/17/17 19:45 86 I/O 04/17/17 04/17/17 04/17/17 04/18/17 04/18/17 04/18/17 07:00 15:00 23:00 07:00 15:00 23:00 Intake Total 240 ml 1200 ml 480 ml 1200 ml Output Total 900 ml 500 ml 425 ml 600 ml Balance -660 ml 700 ml 55 ml 600 ml Intake Oral 240 ml 900 ml 480 ml 1200 ml IV Total 300 ml Output Urine Total 900 ml 500 ml 425 ml 600 ml # Voids 2 # Bowel Movements 2 3 1 1 Result Diagram: 04/18/17 1316 04/18/17 1317 Objective Remarks GENERAL: This is an averagely built elderly lady who is alert, Oriented. HEENT: The head normocephalic. Pupils are reactive. Sclerae were clear. Nasal mucosa clear. Ears no inflammation. NECK: Supple. No lymphadenopathy. There is no venous distension. Trachea midline. No thyromegaly. CHEST: Equal movements with an increased AP diameter with occ wheezes. No Crackles. HEART: Sounds are regular S1, S2 and tachycardic with no murmur. ABDOMEN: Soft, nontender. No organomegaly. Bowel sounds are active. EXTREMITIES: No lesions or edema. Peripheral pulses are diminished. NEUROLOGIC: Reflexes are 1+. Babinski negative. SKIN: No lesions were observed. Assessment and Plan Assessment and Plan IMPRESSION 1. Hypercapnic respiratory failure. 2. 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 History of hypertension 4. History of coronary artery disease with stenting 5. History of peptic ulcer disease. Plan : 1. Wean O2 to RA 2. Up in halls 3. D/C Zithromax 4. Prednisone 20 mg bid and taper 5. CBC,BMP 6. Nebs q6h with duoneb. 7. Symbicort 160/4.5 mcg , 2 puffs bid 8. To rehab anytime Lincoln Martínez MD Apr 18, 2017 19:35
[2017-04-18] MEDS: CEFUROXIME AXETIL 500 MG TAB PO SCH (20:44)
[2017-04-18] MEDS: LACTOBACILLUS ACIDOPHILUS TAB PO SCH (20:46)
[2017-04-18] MEDS: NYSTATIN 100,000 UNIT/GM CREAM 15 GM TOPICAL SCH (21:00)
[2017-04-18] MEDS ORDERED: THEO400T2 PO (22:29)
[2017-04-19] VITALS (26 sets, daily range): BP systolic 139–161; BP diastolic 83–94; PULSE 72–130; RESP 20–22; TEMP 97.1–98.5; O2SAT 93–96
[2017-04-19] MEDS: RESP: IPRATROPIUM 0.5 MG/2.5 ML NEB NEB SCH ×4 (03:39→19:17)
[2017-04-19] MEDS: CHLORHEXIDINE GLUCONATE 2 % 1 PACK (2 CLOTHS) TOP SCH (04:00)
[2017-04-19] MEDS: DILTIAZEM HCL 60 MG TAB PO SCH ×4 (05:41→23:53)
[2017-04-19 06:49] LABS: AUTOMATED NEUTROPHIL # 15.5 TH/MM3 (1.8-7.7); HEMATOCRIT 44.3 % (35.0-46.0); HEMO FLAGS DIFF FINAL; LYMPH % 1.2 % (9.0-44.0); LYMPHOCYTE # 0.2 TH/MM3 (1.0-4.8); MEAN CELL VOLUME 95.1 FL (80.0-100.0); MEAN CORPUSCULAR HEMOGLOBIN 31.5 PG (27.0-34.0); MEAN CORPUSCULAR HGB CONC 33.1 % (32.0-36.0); NEUT % 92.8 % (16.0-70.0); PLATELET COUNT 415 TH/MM3 (150-450); RED BLOOD COUNT 4.66 MIL/MM3 (4.00-5.30); RED CELL DISTRIBUTION WIDTH 14.2 % (11.6-17.2); WHITE BLOOD COUNT 16.7 TH/MM3 (4.0-11.0)
[2017-04-19 07:07] LABS: BICARBONATE 29.9 MEQ/L (21.0-32.0); POTASSIUM 3.4 MEQ/L (3.5-5.1)
[2017-04-19] MEDS ORDERED: THEOPHYLLINE 200 MG EXTENDED RELEASE CAP PO SCH ×3 (09:00→21:00)
[2017-04-19] MEDS: SODIUM CHLORIDE 0.9% FLUSH 10 ML FLUSH IV FLUSH SCH ×2 (09:00→22:13)
[2017-04-19] MEDS: DOCUSATE SODIUM 50 MG/SENNA 8.6 MG TAB PO SCH ×2 (09:00→22:12)
[2017-04-19] MEDS: HEPARIN SODIUM - SQ 10,000 UNITS/ML VIAL SQ SCH ×2 (09:30→22:13)
[2017-04-19] MEDS: NYSTATIN 100,000 UNIT/GM CREAM 15 GM TOPICAL SCH ×2 (09:31→22:14)
[2017-04-19] MEDS: predniSONE 20 MG TAB PO SCH (09:31)
[2017-04-19] MEDS: PANTOPRAZOLE SOD 20 MG DELAYED RELEASE TAB PO SCH (09:31)
[2017-04-19] MEDS: ESTROGENS CONJUGATED 1.25 MG TAB PO SCH (09:31)
[2017-04-19] MEDS: LACTOBACILLUS ACIDOPHILUS TAB PO SCH ×2 (09:31→22:12)
[2017-04-19] MEDS: ASPIRIN 81 MG CHEW TAB CHEW SCH (09:31)
[2017-04-19] MEDS: BUDESONIDE-FORMOTEROL 160/4.5 MCG INHALER INH SCH ×2 (09:31→22:13)
[2017-04-19] MEDS: CALCIUM/VITAMIN D 250 MG/125 U TAB PO SCH (09:32)
[2017-04-19] MEDS: CEFUROXIME AXETIL 500 MG TAB PO SCH ×2 (09:32→22:12)
[2017-04-19] MEDS: LOSARTAN 50 MG TAB PO SCH (09:32)
[2017-04-19] MEDS ORDERED: DILT60TA33 PO (11:29)
[2017-04-19] MEDS ORDERED: THEO400T2 PO (11:29)
[2017-04-19] MEDS ORDERED: CEFU1TAB20 PO (11:29)
[2017-04-19] MEDS ORDERED: IPRA0.02 NEB (11:29)
[2017-04-19] MEDS ORDERED: PRED20 PO (11:29)
[2017-04-19] MEDS ORDERED: POTASSIUM CHLORIDE 10 MEQ CONTROLLED RELEASE TAB PO ONE (12:00)
--- NOTE | 2017-04-19 12:35 | HHI.DCPOC ---
Discharge Care Plan Diagnosis: (1) Hypokalemia (2) Hypocalcemia (3) LIO (acute kidney injury) (4) Uncontrolled hypertension (5) GERD (gastroesophageal reflux disease) (6) Leukocytosis (7) Acute respiratory failure (8) Elevated troponin (9) Dyspnea (10) COPD exacerbation (11) COPD (chronic obstructive pulmonary disease) Goals to Promote Your Health * To prevent worsening of your condition and complications * To maintain your health at the optimal level Directions to Meet Your Goals Take your medications as prescribed Follow your dietary instruction Follow activity as directed Keep your appointments as scheduled Take your immunizations and boosters as scheduled If your symptoms worsen call your PCP, if no PCP go to Urgent Care Center or Emergency Room Smoking is Dangerous to Your Health. Avoid second hand smoke Call the 24-hour hour crisis hotline for domestic abuse at Efren Lehman MD Apr 19, 2017 12:35
--- NOTE | 2017-04-19 12:41 | HHI.DS ---
Discharge Summary Admission Date Apr 11, 2017 at 10:04 Discharge Date: Apr 20, 2017 Admitting Diagnosis dyspnea with elevated troponin rule out ACS CBC/BMP: 04/19/17 0535 04/19/17 0535 Significant Findings Laboratory Tests Test 04/17/17 05:09 04/18/17 13:16 04/18/17 13:17 04/19/17 05:35 Red Blood Count 3.97 MIL/MM3 (4.00-5.30) Blood Urea Nitrogen 32 MG/DL (7-18) 25 MG/DL (7-18) 25 MG/DL (7-18) Creatinine 1.17 MG/DL (0.50-1.00) 1.25 MG/DL (0.50-1.00) 1.08 MG/DL (0.50-1.00) Random Glucose 166 MG/DL (74-106) 229 MG/DL (74-106) 136 MG/DL (74-106) Calcium Level 8.0 MG/DL (8.5-10.1) Carbon Dioxide Level 36.1 MEQ/L (21.0-32.0) Estimat Glomerular Filtration Rate 45 ML/MIN (>89) 41 ML/MIN (>89) 49 ML/MIN (>89) White Blood Count 16.6 TH/MM3 (4.0-11.0) 16.7 TH/MM3 (4.0-11.0) Potassium Level 3.4 MEQ/L (3.5-5.1) 3.4 MEQ/L (3.5-5.1) Neutrophils (%) (Auto) 92.8 % (16.0-70.0) Lymphocytes (%) (Auto) 1.2 % (9.0-44.0) Neutrophils # (Auto) 15.5 TH/MM3 (1.8-7.7) Lymphocytes # (Auto) 0.2 TH/MM3 (1.0-4.8) Monocytes # (Auto) 1.0 TH/MM3 (0-0.9) Imaging Last Impressions Chest X-Ray 04/19/17 0000 Signed Impressions: Service Date/Time: Wednesday, April 19, 2017 16:11 - CONCLUSION: 1. Minimal left lung base airspace disease, presumably atelectasis. Although felt unlikely , differential considerations include developing pneumonia and aspiration in the appropriate clinical setting. Hernan Gillespie MD Myocardial Perfusion Scan [facility] 04/17/17 0000 Signed Impressions: Service Date/Time: Monday, April 17, 2017 10:40 - CONCLUSION: 1. Findings consistent with apical wall infarct. No evidence for focal stress induced defect to suggest ischemia. 2. Generalized hypokinesia with more pronounced wall motion abnormality in the apical septal wall and reduced EF of 40%%. RISK CATEGORY: Intermediate (1-3%% Annual Mortality Rate) Hernan Gillespie MD PE at Discharge GENERAL: Pleasant elderly, not in distress SKIN: Warm and dry. HEAD: Normocephalic. EYES: No scleral icterus. No injection or drainage. NECK: Supple, trachea midline. No JVD or lymphadenopathy. CARDIOVASCULAR: Regular rate and rhythm without murmurs, gallops, or rubs. RESPIRATORY: Breath sounds clear and equal bilaterally. No accessory muscle use. No rhonchi or rales auscultated. GASTROINTESTINAL: Abdomen soft, non-tender, nondistended. EXTREMITIES: No cyanosis, or edema. NEUROLOGICAL: Awake, alert, and oriented x 3. Non-focal. Pt update on day of discharge Patient feels better today. States chest tightness has resolved and breathing is much improved. Patient's heart rate was in the 90's for the entire night and went up to 113 when she was sat up. Discussed case with Dr villalta from cardiology who states nuclear was negative and that ekg changes mentioned on yesterday's ekg are likely rate related. The patient is cleared to be discharged from the cardiology standpoint. Pt Condition on Discharge: Stable Discharge Disposition: Disch w/ Home Health Serv Discharge Time: > 30 minutes Discharge Instructions DIET: Follow Instructions for: Heart Healthy Diet Speech Therapy-Diet Recommends: Pureed Activities you can perform: Regular-No Restrictions, See Additionl Instruction Activities to Avoid: Prolonged Standing, Strenuous Activity Follow up Referrals: PCP Follow-up - 2 Weeks Pulmonology - 2 Weeks with Lincoln Martínez MD New Medications: Prednisone (Prednisone) 20 Mg Tab 20 MG PO DIRECTED for Inflammation, #11 TAB 0 Refills Take 40mg daily for 3 days; 20mg daily for 3 days; 10mg daily for 3 days, then stop. Theophylline ER 24 HR (Theophylline ER 24 HR) 400 Mg Tab 200 MG PO DAILY for Shortness of Breath, #30 TAB 0 Refills Cefuroxime (Cefuroxime) 500 Mg Tab 500 MG PO Q12HR for Infection, #10 TAB Diltiazem (Cardizem) 60 Mg Tab 60 MG PO Q6HR for Blood Pressure Management, #120 TAB Continued Medications: Albuterol 6.7 GM Inh (Proventil Hfa 6.7 GM Inh) 90 Mcg/Act Aer 2 PUFF INH Q4HR PRN for SOB/WHEEZING, #1 INHALER 0 Refills Albuterol Neb (Albuterol Neb) 2.5 Mg/3 Ml Neb 2.5 MG NEB QID, NEBULE 0 Refills Alendronate (Alendronate) 70 Mg Tab 70 MG PO Q7D for Osteporosis Treatment, #4 TAB [address] (Aspir-81) 81 Mg Tabdr 81 MG PO DAILY Budesonide Neb (Budesonide Neb) 0.5 Mg/2 Ml Neb 0.5 MG NEB BID for Breathing Treatment, #30 NEBULE 0 Refills Budesonide Powder Inh (Pulmicort Flexhaler) 180 Mcg/Act Inhp 180 MCG INH Q12HR PRN for SOB/WHEEZING, #1 INHALER 0 Refills Calcium Carbonate-Cholecalciferol (Calcium + D3) 600-200 Mg-Unit Tab 3 TAB PO DAILY, TAB Cholecalciferol (Vitamin D3) 5,000 Unit Cap 5000 UNITS PO 4TIMESPERWEEK for Nutritional Supplement, #1 BOTTLE 0 Refills Cyanocobalamin Inj (Cyanocobalamin Inj) 1,000 Mcg/Ml Inj 1000 MCG IM MONTHLY, #1 VIAL 0 Refills Estrogens, Conjugated (Premarin) 1.25 Mg Tab 1.25 MG PO DAILY for Estrogen Supplements, #30 TAB 0 Refills Ipratropium Neb (Ipratropium Neb) 0.5 Mg/2.5 Ml Amp 0.5 MG NEB BID for Shortness of Breath, #60 NEBULE 0 Refills (This prescription has been renewed) Lactobacillus Acidophilus (Acidophilus/l-Sporogenes) 1 Tab Tab 1 TAB PO Q12HR for probiotic, #30 TAB Losartan (Losartan) 100 Mg Tab 100 MG PO DAILY for Blood Pressure Management, #30 TAB 0 Refills Nystatin Liq (Nystatin Liq) 100,000 unit/ml Susp 5 ML SWISH-SWAL Q6H for marly for 7 Days, BOTTLE Nystatin Topical (Nystatin Topical) 100,000 unit/gm Cream 1 APPLIC TOPICAL Q12HR for intertriginous candidiasis for 14 Days, TUBE Zinc Oxide (Topical) (Zinc Oxide) 20 % Oin 1 APPLIC TOPICAL UNSCH PRN for itchy skin/ irritated skin for 14 Days, TUBE Discontinued Medications: Cefuroxime (Ceftin) 250 Mg Tab 250 MG PO BID, TAB Prednisone (21) 5 mg tab Dose Pack (Prednisone (21) 5 mg tab Dose Pack) 5 Mg Dspk 5 MG PO DIRECTED for Inflammation, #1 DSPK 0 Refills Theophylline ER 24 HR (Theophylline ER 24 HR) 400 Mg Tab 200 MG PO DAILY, #30 TAB 0 Refills Efren Lehman MD Apr 19, 2017 12:41
--- NOTE | 2017-04-19 12:41 | HHI.FF ---
Face to Face Verification Diagnosis: (1) COPD exacerbation (2) LIO (acute kidney injury) (3) Uncontrolled hypertension (4) GERD (gastroesophageal reflux disease) (5) Acute respiratory failure (6) Coronary artery disease (7) Dyspnea Physical Therapy Order: Improve ambulation, Strength and gait training Home Health Nursing Order: Medical education Signs/symptoms of disease process Nursing assessment with vital signs I have seen patient Sera Wallace on 04/19/17. My clinical findings support the need for the requested home health care services because: Patient has SOB Deconditioned w/ increased weakness Need for psychosocial assistance High risk of falls I certify that my clinical findings support that this patient is homebound because: Hx COPD- exertion dyspnea/weakness Unsteady gait/balance Unsafe to leave home unassisted Unable to use public transportation Efren Lehman MD Apr 19, 2017 12:41
--- NOTE | 2017-04-19 13:12 | HHI.PR ---
Subjective Remarks Off O2 sat 93. Feels better and walked in halls. No SOB at rest.Wants to leave but HR is 125. Objective Vital Signs Date Time Temp Pulse Resp B/P (MAP) Pulse Ox O2 Delivery O2 Flow Rate FiO2 04/19/17 10:05 2.00 04/19/17 08:30 90 20 139/83 (101) 95 04/19/17 08:00 80 04/19/17 07:00 80 04/19/17 06:00 84 04/19/17 05:00 88 04/19/17 04:00 83 04/19/17 04:00 98.2 95 20 93 04/19/17 03:00 72 04/19/17 02:00 90 04/19/17 01:00 82 04/19/17 00:00 98.5 91 22 157/83 (107) 94 04/19/17 00:00 89 04/18/17 23:00 84 04/18/17 22:00 88 04/18/17 21:23 95 21 04/18/17 21:00 76 04/18/17 20:00 77 04/18/17 20:00 97.6 94 20 150/76 (100) 95 04/18/17 19:00 90 04/18/17 18:00 96 04/18/17 17:00 78 04/18/17 16:00 82 04/18/17 15:30 98.5 87 16 182/96 (124) 94 04/18/17 13:13 86 I/O 04/18/17 04/18/17 04/18/17 04/19/17 04/19/17 04/19/17 07:00 15:00 23:00 07:00 15:00 23:00 Intake Total 480 ml 1450 ml 240 ml Output Total 425 ml 600 ml 800 ml Balance 55 ml 850 ml -560 ml Intake Oral 480 ml 1200 ml 240 ml IV Total 250 ml Output Urine Total 425 ml 600 ml 800 ml # Voids 2 # Bowel Movements 1 1 Result Diagram: 04/19/1735 04/19/17 0535 Objective Remarks GENERAL: This is an averagely built elderly lady who is alert, Oriented. HEENT: The head normocephalic. Pupils are reactive. Sclerae were clear. Nasal mucosa clear. Ears no inflammation. NECK: Supple. No lymphadenopathy. There is no venous distension. Trachea midline. No thyromegaly. CHEST: Equal movements with an increased AP diameter with occ wheezes. No Crackles. HEART: Sounds are regular S1, S2 and tachycardic with no murmur. ABDOMEN: Soft, nontender. No organomegaly. Bowel sounds are active. EXTREMITIES: No lesions or edema. Peripheral pulses are diminished. NEUROLOGIC: Reflexes are 1+. Babinski negative. SKIN: No lesions were observed. Assessment and Plan Assessment and Plan IMPRESSION 1. Hypercapnic respiratory failure. 2. 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 History of hypertension 4. History of coronary artery disease with stenting 5. History of peptic ulcer disease. Plan : 1. Wean O2 to RA 2. Up in halls 3. D/C Zithromax 4. Prednisone 10 mg bid and taper 5. Cardiology to see her. 6. Nebs q6h with duoneb.PRN 7. Symbicort 160/4.5 mcg , 2 puffs bid 8. To rehab soon Lincoln Martínez MD Apr 19, 2017 13:12
--- NOTE | 2017-04-19 15:33 | HHI.PR ---
Subjective Remarks Patient states she feels chest tightness, still coughing. PAtient had been discharged however became very tachycardic. Denies cp, bu states she feels tight. BP much improved. Denies fevers or chills. Objective Vitals Vital Signs Date Time Temp Pulse Resp B/P (MAP) Pulse Ox O2 Delivery O2 Flow Rate FiO2 04/19/17 11:00 120 20 155/92 (113) 94 04/19/17 10:05 2.00 04/19/17 08:30 90 20 139/83 (101) 95 04/19/17 08:00 80 04/19/17 07:00 80 04/19/17 06:00 84 04/19/17 05:00 88 04/19/17 04:00 83 04/19/17 04:00 98.2 95 20 93 04/19/17 03:00 72 04/19/17 02:00 90 04/19/17 01:00 82 04/19/17 00:00 98.5 91 22 157/83 (107) 94 04/19/17 00:00 89 04/18/17 23:00 84 04/18/17 22:00 88 04/18/17 21:23 95 21 04/18/17 21:00 76 04/18/17 20:00 77 04/18/17 20:00 97.6 94 20 150/76 (100) 95 04/18/17 19:00 90 04/18/17 18:00 96 04/18/17 17:00 78 04/18/17 16:00 82 I/O 04/18/17 04/18/17 04/18/17 04/19/17 04/19/17 04/19/17 07:00 15:00 23:00 07:00 15:00 23:00 Intake Total 480 ml 1450 ml 240 ml Output Total 425 ml 600 ml 800 ml Balance 55 ml 850 ml -560 ml Intake Oral 480 ml 1200 ml 240 ml IV Total 250 ml Output Urine Total 425 ml 600 ml 800 ml # Voids 2 # Bowel Movements 1 1 Result Diagram: 04/19/17 0535 04/19/17 0535 Imaging Last Impressions Myocardial Perfusion Scan Nuc Med 04/17/17 0000 Signed Impressions: Service Date/Time: Monday, April 17, 2017 10:40 - CONCLUSION: 1. Findings consistent with apical wall infarct. No evidence for focal stress induced defect to suggest ischemia. 2. Generalized hypokinesia with more pronounced wall motion abnormality in the apical septal wall and reduced EF of 40%%. RISK CATEGORY: Intermediate (1-3%% Annual Mortality Rate) Hernan Gillespie MD Chest X-Ray 04/13/17 0600 Signed Impressions: Service Date/Time: March 04:32 - CONCLUSION: The lungs are clear. Brandon Garcia MD Objective Remarks GENERAL: Pleasant elderly, not in distress SKIN: Warm and dry. HEAD: Normocephalic. EYES: No scleral icterus. No injection or drainage. NECK: Supple, trachea midline. No JVD or lymphadenopathy. CARDIOVASCULAR: Regular rate and rhythm without murmurs, gallops, or rubs. RESPIRATORY: No accessory muscle use. No rhonchi or rales auscultated. Breath sounds are diminished and there is diffuse BL wheezing. GASTROINTESTINAL: Abdomen soft, non-tender, nondistended. EXTREMITIES: No cyanosis, or edema. NEUROLOGICAL: Awake, alert, and oriented x 3. Non-focal. Medications and IVs Current Medications Medications (Trade) Dose Ordered Sig/Michael Route Start Time Stop Time Status Last Admin (NS Flush) 2 ml UNSCH PRN IV FLUSH 04/11/17 10:15 04/16/17 09:20 (NS Flush) 2 ml BID IV FLUSH 04/11/17 21:00 04/19/17 09:00 (Narcan Inj) 0.4 mg UNSCH PRN IV PUSH 04/11/17 10:15 (Atrovent Neb) 0.5 mg Q6HR NEB NEB 04/11/17 16:00 04/19/17 03:39 (Atrovent Neb) 0.5 mg Q2HR NEB PRN NEB 04/11/17 14:30 Miscellaneous Information 1 Q361D XX 04/11/17 12:15 (Chlorhexidine 2% Cloth) Taper DAILY@04 TOP 04/12/17 04:00 04/08/18 03:59 04/16/17 04:00 (Chlorhexidine 2% Cloth) 3 pack UNSCH PRN TOP 04/11/17 12:15 (Anai-Colace) 1 tab BID PO 04/11/17 21:00 04/16/17 20:20 (Senokot) 17.2 mg Q12H PRN PO 04/11/17 12:15 (Dulcolax Supp) 10 mg DAILY PRN RECTAL 04/11/17 12:15 (Lactulose Liq) 30 ml DAILY PRN PO 04/11/17 12:15 (Aspirin Chew) 81 mg DAILY CHEW 04/12/17 09:00 04/19/17 09:31 (Symbicort 160-4.5 Mcg Inh) 2 puff Q12HR INH 04/11/17 21:00 04/19/17 09:31 (Heparin Inj) 5,000 units Q12HR SQ 04/14/17 09:00 04/19/17 09:30 (Cardizem) 60 mg Q6HR PO 04/15/17 18:00 04/19/17 14:28 (Protonix) 20 mg DAILY PO 04/18/17 09:00 04/19/17 09:31 (Proair Hfa Inh) 2 puff Q4HR PRN INH 04/18/17 17:15 (Premarin) 1.25 mg DAILY PO 04/19/17 09:00 04/19/17 09:31 (Atrovent Neb) 0.5 mg BID NEB NEB 04/18/17 21:00 04/19/17 09:48 (Lactinex) 1 tab Q12HR PO 04/18/17 21:00 04/19/17 09:31 (Cozaar) 100 mg DAILY PO 04/18/17 18:00 04/19/17 09:32 (Mycostatin Cream) 1 applic Q12HR TOPICAL 04/18/17 21:00 04/19/17 09:31 (Zinc Oxide 20% Oint) 1 applic UNSCH PRN TOPICAL 04/18/17 17:15 Patient Own Medication PT OWN MED: (Budesonide Powder ... BID PRN INH 04/18/17 18:00 Future Hold (Oscal-D 250-125) 500 mg DAILY PO 04/19/17 09:00 04/19/17 09:32 (Ceftin) 500 mg Q12HR PO 04/18/17 21:00 04/23/17 20:59 04/19/17 09:32 (Deltasone) 10 mg BID PO 04/19/17 21:00 (Ammon-24) 200 mg DAILY PO 04/19/17 20:00 UNV (SoluMEDROL INJ) 125 mg ONCE ONCE IV PUSH 04/19/17 15:30 04/19/17 15:31 UNV (Ammon-24) 200 mg DAILY@2100 PO 04/19/17 21:00 A/P Assessment and Plan 1. Acute hypercarbic hypoxemic respiratory failure. 2. Respiratory acidosis. 3. Acute COPD exacerbation. The patient was admitted to intensive care unit and cared for by the district manager primary care sales. The patient was intubated intubated, treated with IV steroids in the form of IV Solu-Medrol, IV antibiotics. Resume admission showed respiratory acidosis, hypercarbia. The patient was later extubated on 04/13 after respiratory acidosis resolved. The patient is currently on nasal cannula. Initially patient was treated with Zosyn, Zithromax empirically. Chest x-ray on 08/12 clear. Stenosis was discontinued on 04/17 and Zithromax continued. Pulmonary consulted and following the patient. Dr. Pastor discontinued by mouth Zithromax and start the patient on Ceftin. Patient is having some shots of breath on exertion. We'll order respiratory walk test. 04/19 but this was done, the patient does not require oxygen to go home. Patient had been discharged earlier today, however became tachycardic. EKG which was reviewed by me shows sinus tachycardia without ST-T changes. The patient is typed on exam so will give a dose of 125 mg of IV Solu-Medrol and 20 mg of oral Lasix and obtain a chest x-ray. At this moment will hold discharge until patient more stable. 4. Hypokalemia. Replaced and monitored during hospital stay. Continue to monitor and replace as needed. Potassium 3.4 today - Will replace orally. Monitor BMP 5. Hypocalcemia. Status post IV calcium gluconate. Calcium levels now normal. Monitor BMP. 6. Acute kidney injury on chronic kidney disease stage III Upper review of medical records, baseline creatinine is around 1.0-1.1. Creatinine trending down to 1.25 and close to baseline. Continue to monitor BUN/creatinine, avoid nephrotoxins and monitor strict I's and O's. 04/19 Creatinine down to 1/08 which is likely the patient's baseline. 7. Elevated troponin The patient has history of CAD with previous stent placements. Suspected to be typed to demand ischemia. Lexiscan stress test with apical infarct, hypokinesis, EF of 40% but no reversible defects to suggest ischemic origin. Cardiology following/Dr. Ontiveros -cont asa, cardizem -pt has allergy to beta blockers and plavix -further recs as per cardiology 8. Uncontrolled hypertension Systolic BP severely elevated now 180s. Continue Cardizem and resume patient 's home losartan given that creatinine is not improved. Continue to wean steroids which is likely contributing to the severity and difficult to control hypertension. 04/19 BP much improved. Continue to monitor vital signs. 9. GERD/Peptic ulcer disease. -Initially and IV Pepcid, changed to Protonix. Seems to be stable. 10. Leukocytosis. Likely due to steroid. Continue to monitor CBC. No signs of active infection. Patient afebrile. DVT prophylaxis with SCDs and heparin subcu. Discharge Planning Possible discharge in a.m. pending respiratory walk test and blood pressure improvement. Efren Lehman MD Apr 19, 2017 15:33
--- NOTE | 2017-04-19 16:44 | RADRPT ---
EXAM DATE/TIME: 04/19/2017 16:11 [facility] COMPARISON: CHEST SINGLE AP, April 13, 2017, 4:32. INDICATIONS : Chest congestion, short of breath for 1 week MEDICAL HISTORY : Hypertension. Chronic obstructive pulmonary disease. Cardiovascular disease. Asthma SURGICAL HISTORY : Coronary artery stent ENCOUNTER: Subsequent ACUITY: 1 week PAIN SCORE: 3/10 LOCATION: Bilateral chest FINDINGS: Linear opacity in the peripheral right midlung zone appears to correspond to a skin fold. Mild left l chucky base airspace disease consistent with atelectasis. Biapical scarring with diffuse interstitial pr ominence. Cardiomediastinal contours are stable. Remainder of the exam is unchanged. CONCLUSION: 1. Minimal left lung base airspace disease, presumably atelectasis. Although felt unlikely, different ial considerations include developing pneumonia and aspiration in the appropriate clinical setting. Hernan Gillespie MD on April 19, 2017 at 16:39 Board Certified Radiologist. This report was verified electronically.
[2017-04-19] MEDS ORDERED: FUROSEMIDE 20 MG TAB PO ONE (17:00)
[2017-04-19] MEDS ORDERED: methylPREDNISolone SOD SUCC 125 MG/2 ML VIAL IV PUSH ONE (17:00)
[2017-04-19] MEDS: predniSONE 10 MG TAB PO SCH (22:12)
[2017-04-20] VITALS (18 sets, daily range): BP systolic 125–142; BP diastolic 72–84; PULSE 81–122; RESP 18; TEMP 97.5–98.2; O2SAT 92–99
[2017-04-20 03:40] LABS: MEAN CELL VOLUME 93.9 FL (80.0-100.0); MEAN CORPUSCULAR HEMOGLOBIN 32.4 PG (27.0-34.0); MEAN CORPUSCULAR HGB CONC 34.5 % (32.0-36.0); PLATELET COUNT 377 TH/MM3 (150-450); RED CELL DISTRIBUTION WIDTH 13.9 % (11.6-17.2); REVIEW FLAG FINAL; WHITE BLOOD COUNT 20.4 TH/MM3 (4.0-11.0)
[2017-04-20 03:57] LABS: BICARBONATE 23.3 MEQ/L (21.0-32.0)
[2017-04-20] MEDS: CHLORHEXIDINE GLUCONATE 2 % 1 PACK (2 CLOTHS) TOP SCH (04:00)
[2017-04-20] MEDS: DILTIAZEM HCL 60 MG TAB PO SCH ×2 (05:46→11:59)
[2017-04-20] MEDS: SODIUM CHLORIDE 0.9% FLUSH 10 ML FLUSH IV FLUSH SCH (09:00)
[2017-04-20] MEDS: DOCUSATE SODIUM 50 MG/SENNA 8.6 MG TAB PO SCH (09:00)
[2017-04-20] MEDS: RESP: IPRATROPIUM 0.5 MG/2.5 ML NEB NEB SCH (09:03)
[2017-04-20] MEDS: ESTROGENS CONJUGATED 1.25 MG TAB PO SCH (09:25)
[2017-04-20] MEDS: LOSARTAN 50 MG TAB PO SCH (09:25)
[2017-04-20] MEDS: ASPIRIN 81 MG CHEW TAB CHEW SCH (09:25)
[2017-04-20] MEDS: CALCIUM/VITAMIN D 250 MG/125 U TAB PO SCH (09:25)
[2017-04-20] MEDS: CEFUROXIME AXETIL 500 MG TAB PO SCH (09:25)
[2017-04-20] MEDS: LACTOBACILLUS ACIDOPHILUS TAB PO SCH (09:25)
[2017-04-20] MEDS: HEPARIN SODIUM - SQ 10,000 UNITS/ML VIAL SQ SCH (09:25)
[2017-04-20] MEDS: predniSONE 10 MG TAB PO SCH (09:26)
[2017-04-20] MEDS: BUDESONIDE-FORMOTEROL 160/4.5 MCG INHALER INH SCH (09:26)
[2017-04-20] MEDS: PANTOPRAZOLE SOD 20 MG DELAYED RELEASE TAB PO SCH (09:26)
[2017-04-20] MEDS: NYSTATIN 100,000 UNIT/GM CREAM 15 GM TOPICAL SCH (09:27)
[2017-04-20] MEDS ORDERED: POTASSIUM CHLORIDE 10 MEQ CONTROLLED RELEASE TAB PO ONE (12:15)
[2017-04-20] MEDS ORDERED: DILT60TA33 PO (12:29)
--- NOTE | 2017-04-20 12:58 | HHI.PR ---
Subjective Remarks Off O2 sat 96. Feels better and HR is better. No SOB at rest. Objective Vital Signs Date Time Temp Pulse Resp B/P (MAP) Pulse Ox O2 Delivery O2 Flow Rate FiO2 04/20/17 11:45 98.2 113 18 125/84 (98) 95 04/20/17 09:04 96 04/20/17 08:30 98.0 109 18 140/72 (94) 92 04/20/17 07:01 98 04/20/17 06:00 89 04/20/17 05:00 81 04/20/17 04:00 95 04/20/17 03:00 97.5 99 18 142/81 (101) 99 04/20/17 03:00 93 04/20/17 02:00 90 04/20/17 01:00 90 04/20/17 00:00 91 04/19/17 23:00 97.5 92 20 154/94 (114) 95 04/19/17 23:00 88 04/19/17 22:00 86 04/19/17 21:00 106 04/19/17 20:00 90 04/19/17 19:19 96 21 04/19/17 19:00 110 04/19/17 19:00 97.1 112 20 161/91 (114) 96 04/19/17 18:00 120 04/19/17 17:00 114 04/19/17 16:00 100 04/19/17 15:00 130 04/19/17 15:00 130 20 155/92 (113) 94 04/19/17 14:00 124 04/19/17 13:00 130 I/O 04/19/17 04/19/17 04/19/17 04/20/17 04/20/17 04/20/17 07:00 15:00 23:00 07:00 15:00 23:00 Intake Total 240 ml 1080 ml Output Total 800 ml 600 ml Balance -560 ml 480 ml Intake Oral 240 ml 1080 ml Output Urine Total 800 ml 600 ml # Voids 6 3 Result Diagram: 04/20/1732904/20/17329 Objective Remarks GENERAL: This is an averagely built elderly lady who is alert, Oriented. HEENT: The head normocephalic. Pupils are reactive. Sclerae were clear. Nasal mucosa clear. Ears no inflammation. NECK: Supple. No lymphadenopathy. There is no venous distension. Trachea midline. No thyromegaly. CHEST: Equal movements with an increased AP diameter . No Crackles. HEART: Sounds are regular S1, S2 and tachycardic with no murmur. ABDOMEN: Soft, nontender. No organomegaly. Bowel sounds are active. EXTREMITIES: No lesions or edema. Peripheral pulses are diminished. NEUROLOGIC: Reflexes are 1+. Babinski negative. SKIN: No lesions were observed. Assessment and Plan Assessment and Plan IMPRESSION 1. Hypercapnic respiratory failure. 2. 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 History of hypertension 4. History of coronary artery disease with stenting 5. History of peptic ulcer disease. Plan : 1. D/C O2 2. Continue PT. 3. OK to go home 4. Prednisone 10 mg bid and taper 5. See DR Pettit in 1 week 6. Nebs q6h with duoneb.PRN 7. Symbicort 160/4.5 mcg , 2 puffs bid Lincoln Martínez MD Apr 20, 2017 12:58
--- NOTE | 2017-04-20 14:06 | EKG ---
Date Performed: 04/19/2017 Time Performed: 13:56:40 PTAGE: 81 years EKG: Sinus tachycardia Possible right atrial abnormality RVH with secondary repolarization abnor mality Ant/septal and lateral ST-T changes may be due to hypertrophy and/or ischemia Compared to prev ious tracing T wave inversion is now present in the anterior leads, consider anterior ischemia Abnorm al ECG PREVIOUS TRACING : 04/11/2017 19.59 DOCTOR: Gregory Ontiveros Interpretating Date/Time 04/20/2017 14:05:51
[2017-04-20] MEDS ORDERED: DILTIAZEM HCL 90 MG TAB PO SCH (18:00)
[2017-04-20] MEDS ORDERED: predniSONE 20 MG TAB PO SCH (21:00)
--- NOTE | 2017-04-21 23:29 | EKG ---
Date Performed: 04/20/2017 Time Performed: 12:30:02 PTAGE: 81 years EKG: Sinus tachycardia. Possible right atrial abnormality RVH with secondary repolarization abno rmality LVH with secondary repolarization abnormality Extensive ST-T changes are probably due to vent ricular hypertrophy vs ischemia Abnormal ECG PREVIOUS TRACING : 04/19/2017 13.56 Compared to prior tracing no significant change DOCTOR: Carlos Álvarez Interpretating Date/Time 04/21/2017 23:28:53
== END 2017-04-20 14:28 | disposition home health service (06) | DRG 208 ==
LOC: NEPE 07:46 → NEDA 10:04 → HIMW 16:50 → HCIS 04-16 13:12
PROVIDERS: ADMIT Hospitalist; ATTEND Hospitalist
PROC: 5A1945Z Respiratory Ventilation, 24-96 Consecutive Hours (ICD-10-PCS; principal; 2017-04-11)
PROC: 0BH17EZ Insertion of Endotracheal Airway into Trachea, Via Natural or Artificial Opening (ICD-10-PCS; 2017-04-11)
PROC: 5A09357 Assistance with Respiratory Ventilation, Less than 24 Consecutive Hours, Continuous Positive Airway Pressure (ICD-10-PCS; 2017-04-11)
DX: J96.01 Acute respiratory failure with hypoxia (principal); I21.A1 Myocardial infarction type 2; N17.9 Acute kidney failure, unspecified; J44.1 Chronic obstructive pulmonary disease with (acute) exacerbation; E87.2 Acidosis; J98.11 Atelectasis; J96.02 Acute respiratory failure with hypercapnia; K21.9 Gastro-esophageal reflux disease without esophagitis; N18.3 Chronic kidney disease, stage 3 (moderate); I12.9 Hypertensive chronic kidney disease with stage 1 through stage 4 chronic kidney disease, or unspecified chronic kidney disease; I45.10 Unspecified right bundle-branch block; Z87.891 Personal history of nicotine dependence; I25.10 Atherosclerotic heart disease of native coronary artery without angina pectoris; Z95.5 Presence of coronary angioplasty implant and graft; Z86.711 Personal history of pulmonary embolism; Z87.11 Personal history of peptic ulcer disease; E83.42 Hypomagnesemia; E87.6 Hypokalemia; Z99.81 Dependence on supplemental oxygen; E83.51 Hypocalcemia; E78.00 Pure hypercholesterolemia, unspecified; E87.5 Hyperkalemia
CPT/HCPCS: 31500; 36600; 71010; 76937; 78452; 80048; 80053; 80061; 80076; 81001; 82550; 82552; 82805; 82948; 83735; 83880; 84100; 84132; 84484; 85007; 85025; 85027; 85379; 85610; 85730; 87641; 93005; 93017; 93306; 94002; 94003; 94150; 94620; 94640; 94664; A9502; J0330; J0360; J0456; J0610; J1644; J1815; J1940; J2060; J2543; J2785; J2920; J2930; J3010; J3475; J3480; J7030; J7050; J7512; J7644

== ENCOUNTER → 2017-09-04 | Outpatient (CLI) | payer MEDICARE ==
[2017-09-04 14:04] LABS: ANION GAP 11 MEQ/L (5-15); BICARBONATE 22.8 MEQ/L (21.0-32.0); BLOOD UREA NITROGEN 15 MG/DL (7-18); CALCIUM 9.4 MG/DL (8.5-10.1); CHLORIDE 107 MEQ/L (98-107); GLOMERULAR FILTRATION RATE 40 ML/MIN (>89); GLUCOSE,FASTING 102 MG/DL (74-99); POTASSIUM 3.9 MEQ/L (3.5-5.1); SODIUM (NA) 141 MEQ/L (136-145)
[2017-09-07 23:54] LABS: N-TELOPEPTIDE NTX 19 (4-64)
[2017-09-07 23:54] LABS: CREATININE RANDOM URINE NTX 97 mg/dL (20-320)
== END ==
LOC: PLAB 08:56
DX: M81.0 Age-related osteoporosis without current pathological fracture (principal); N18.3 Chronic kidney disease, stage 3 (moderate); E55.9 Vitamin D deficiency, unspecified
CPT/HCPCS: 36415; 80048; 82306; 82523